=== PATIENT | female | born 1965 | race Caucasian/White ===

== ENCOUNTER → 2016-10-21 | Outpatient (CLI) | payer BC, OTHER ==
[~2016-10-21] MED LIST: ASPI81TA28 PO; CHOL100027 PO; CLON0.5T3 PO; DIVA500T3 PO; DLN100 PO; DLN50 PO; ESCI1TAB10 PO; FURO-85 PO; INSDGI SC; LEVO200T PO; LEVO25TA PO; LISI10TA PO; NVLGI/PEN SQ; SIMV10TA2 PO
[2016-10-22 06:40] LABS: ESTIMATED AVERAGE GLUCOSE 237 mg/dl; HA1C FLAG Normal (Normal)
== END | disposition home or self-care (01) ==
LOC: C.LAB1850 13:30
PROVIDERS: ATTEND Nurse Practitioner Family
DX: E10.29 Type 1 diabetes mellitus with other diabetic kidney complication (principal)

== ENCOUNTER → 2017-02-10 | Outpatient (CLI) | payer BC, OTHER ==
[~2017-02-10] MED LIST changes: +CPR500 PO; +FLM4 PO; +INSU1INJ33 SC; +LAMO1TAB21 PO; +LIRA18IN INJ; +OXYC-57 PO; +PHEN-1043 PO
[2017-02-10 17:50] LABS: THYROID STIMULATING HORMONE 1.31 uIu/ml (0.300-4.500)
[2017-02-11 06:42] LABS: ESTIMATED AVERAGE GLUCOSE 214 mg/dl; HA1C FLAG Normal (Normal)
== END | disposition home or self-care (01) ==
LOC: C.LAB1850 15:17
PROVIDERS: ATTEND Nurse Practitioner Family
DX: E03.9 Hypothyroidism, unspecified (principal); E10.29 Type 1 diabetes mellitus with other diabetic kidney complication

== ENCOUNTER 2017-06-13 05:24 | Inpatient (IN) | payer BC, OTHER ==
[~2017-06-13] VITALS: Ht 160 cm; Wt 97.3 kg
[~2017-06-13 05:24] MED LIST changes: -CPR500 PO; -FLM4 PO; -INSU1INJ33 SC; -LAMO1TAB21 PO; -LIRA18IN INJ; -OXYC-57 PO; -PHEN-1043 PO
[2017-06-13] MEDS ORDERED: SODIUM CHLORIDE 0.9% 1000ML 1,000 ML IV STA ×2 (05:43→07:39)
[2017-06-13] MEDS ORDERED: ONDANSETRON INJ 2 MG/ML 2 ML VIAL IV STA (05:43)
[2017-06-13] MEDS ORDERED: KETOROLAC TROMETHAMINE 30 MG/ML VIAL IV STA (05:43)
[2017-06-13] MEDS ORDERED: MoRPHine SULFATE 10 MG/ML CARP/VIAL IV STA (05:43)
[2017-06-13] MEDS ORDERED: LAMO1TAB21 PO (05:45)
[2017-06-13] MEDS ORDERED: INSU1INJ33 SC (05:45)
[2017-06-13] MEDS ORDERED: LIRA18IN INJ (05:45)
--- NOTE | 2017-06-13 06:03 | EMERGENCY ROOM VISIT NOTE ---
History Report prepared by Nano: Dusty Walls Under the Supervision of: Dr. Kala Langley D.O. First contact with patient: 05:33 Chief Complaint: KIDNEY STONE Stated Complaint: KIDNEY STONE History of Present Illness The patient is a 51 year old female who presents to the Emergency Room with complaints of constant right groin pain and right flank pain that started yesterday. She rates her discomfort as a 9/10 in severity. The patient states that the pain radiates into her back. She states that following her pain, she went to urinate and noticed blood in her urine. The patient also reports that she has been mildly nauseous. She states that due to the pain, she has not been sleeping well. The patient states that she has a history of a hysterectomy. She denies a history of kidney stones, taking blood thinners, leg cramping or swelling, and vomiting. Source of History: patient Onset: yesterday Position: other (right groin) Symptom Intensity: 9/10 Timing: constant Associated Symptoms: + nausea, + back pain, + urinary symptoms, No vomiting Review of Systems See HPI for pertinent positives & negatives. A total of 10 systems reviewed and were otherwise negative. Past Medical & Surgical Medical Problems: (1) Chronic rhinitis (2) Diabetes (3) HTN (hypertension) (4) Hypothyroid (5) Pyelitis (6) Seizure disorder Surgical Problems: (1) Hx of hysterectomy, total Family History Cancer Diabetes mellitus Seizures Social History Smoking Status: Never Smoker Smokeless Tobacco Use: No Alcohol Use: none Drug Use: none Marital Status: Housing Status: lives with significant other Occupation Status: employed Current/Historical Medications Scheduled Aspirin (Aspirin Ec), 81 MG PO Q2D Cholecalciferol (Vitamin D 1000 Unit), 1,000 INTER.UNIT PO DAILY Clonazepam (Klonopin), 0.5 MG PO TID Escitalopram Oxalate (Lexapro), 20 MG PO DAILY Furosemide (Lasix), 20 MG PO DAILY Insulin Degludec (Tresiba Flextouch), 32 UNITS SC QAM Lamotrigine (Lamotrigine), 100 MG PO BID Levothyroxine Sodium (Synthroid), 200 MCG PO DAILY Liraglutide (Victoza), 1.2 ML INJ DAILY Lisinopril (Prinivil), 10 MG PO DAILY Phenytoin (Dilantin Infatabs), 50 MG PO HS Phenytoin Sodium (Dilantin), 200 MG PO BID Simvastatin (Zocor), 10 MG PO QPM Scheduled PRN Insulin Aspart (Novolog Flexpen), 45 UNITS SQ DAILY PRN for SLIDING SCALE Allergies Coded Allergies: No Known Allergies (Unverified , 06/13/17) Physical Exam Vital Signs Date Time Temp Pulse Resp B/P (MAP) Pulse Ox O2 Delivery O2 Flow Rate FiO2 06/13/17 07:27 74 18 121/65 99 Room Air 06/13/17 05:26 36.7 85 18 133/84 97 Room Air Physical Exam General: Appears uncomfortable. HEENT: Head - normocephalic and atraumatic Pupils are equal, round, and reactive to light. Extraocular eye muscles are intact, and sclera are anicteric. Nose - moist nasal mucosa without discharge. Mouth - moist buccal mucosa. Oropharynx is nonerythematous and there is no tonsillar exudate or edema noted. Neck: Supple; no JVD, nuchal rigidity, cervical lymphadenopathy. Heart: Regular rate and rhythm. There is a normal S1 and S2 with no murmurs, clicks, or gallops appreciated. Lungs: Clear to auscultation bilaterally with no wheezes, rales, or rhonchi. Abdomen: Soft, right CVA tenderness, nondistended, with good bowel sounds. There are no palpable pulsatile masses or hepatosplenomegaly. There is no guarding, rigidity, or rebound noted. Extremities: No evidence of cyanosis, clubbing, or edema. There are easily palpable peripheral pulses. Skin: warm and dry with good turgor and no rashes. Medical Decision & Procedures ER Provider Diagnostic Interpretation: CT results as stated below per my review and radiologist interpretation: CT OF THE ABDOMEN AND PELVIS WITHOUT CONTRAST, STONE PROTOCOL CLINICAL HISTORY: Evaluate for left-sided kidney stone. COMPARISON STUDY: None. TECHNIQUE: Helical axial images of the abdomen and pelvis were obtained without IV or oral contrast according to renal stone protocol. A dose lowering technique was utilized adhering to the principles of ALARA. FINDINGS: Visualized portions of the lower chest demonstrate dense right pleural calcification and scarring. These findings are chronic. Unenhanced images of liver, spleen, adrenal glands and pancreas are normal. There is no biliary or pancreatic ductal dilatation. There is marked right renal atrophy with hypertrophy of the left kidney. There is mild right collecting system dilatation. There is mild right ureteral dilatation with ureteral wall thickening and mild periureteral infiltration. There is no left hydronephrosis. However, there is moderate to marked dilatation of the mid to distal left ureter. There are no renal, ureteral or bladder calculi. Moderate bladder wall thickening is noted. There is no evidence for a bowel obstruction. IMPRESSION: 1. No urinary calculi. 2. Marked right renal atrophy with compensatory hypertrophy of the left kidney. Mild right ureteral dilatation, wall thickening and periureteral infiltration. The findings favor an infectious process such as pyelitis, possibly on the basis of reflux. However, a neoplastic process with urothelial lesion could appear similar. Findings could be correlated with urinalysis and urine cytology. Nonspecific moderate bladder wall thickening. Urology consultation might be considered. 3. No left hydronephrosis. Marked dilatation of the distal left ureter which is age-indeterminate. The etiology for the dilatation is unclear on this exam. Differential considerations include a distal left ureteral stricture, urothelial lesion or reflux. Electronically signed by: Rufino Quiles M.D. 06/13/2017 7:19 AM Dictated Date/Time: 06/13/2017 7:01 AM Laboratory Results 06/13/17 05:55 Red Blood Count 4.47, Mean Corpuscular Volume 87.9, Mean Corpuscular Hemoglobin 29.8, Mean Corpuscular Hemoglobin Concent 33.8, Mean Platelet Volume 9.7, Neutrophils (%) (Auto) 84.0, Lymphocytes (%) (Auto) 10.0, Monocytes (%) (Auto) 5.3, Eosinophils (%) (Auto) 0.4, Basophils (%) (Auto) 0.2, Neutrophils # (Auto) 8.03, Lymphocytes # (Auto) 0.96, Monocytes # (Auto) 0.51, Eosinophils # (Auto) 0.04, Basophils # (Auto) 0.02 06/13/17 05:55 Test 06/13/17 05:55 06/13/17 06:00 White Blood Count 9.57 K/uL (4.8-10.8) Red Blood Count 4.47 M/uL (4.2-5.4) Hemoglobin 13.3 g/dL (12.0-16.0) Hematocrit 39.3 % (37-47) Mean Corpuscular Volume 87.9 fL (80-100) Mean Corpuscular Hemoglobin 29.8 pg (25-34) Mean Corpuscular Hemoglobin Concent 33.8 g/dl (32-36) Platelet Count 202 K/uL (130-400) Mean Platelet Volume 9.7 fL (7.4-10.4) Neutrophils (%) (Auto) 84.0 % Lymphocytes (%) (Auto) 10.0 % Monocytes (%) (Auto) 5.3 % Eosinophils (%) (Auto) 0.4 % Basophils (%) (Auto) 0.2 % Neutrophils # (Auto) 8.03 K/uL (1.4-6.5) Lymphocytes # (Auto) 0.96 K/uL (1.2-3.4) Monocytes # (Auto) 0.51 K/uL (0.11-0.59) Eosinophils # (Auto) 0.04 K/uL (0-0.5) Basophils # (Auto) 0.02 K/uL (0-0.2) RDW Standard Deviation 40.7 fL (36.4-46.3) RDW Coefficient of Variation 12.6 % (11.5-14.5) Immature Granulocyte % (Auto) 0.1 % Immature Granulocyte # (Auto) 0.01 K/uL (0.00-0.02) Anion Gap 6.0 mmol/L (3-11) Est Creatinine Clear Calc Drug Dose 111.5 ml/min Estimated GFR () 119.6 Estimated GFR (Non- 103.2 BUN/Creatinine Ratio 14.1 (10-20) Calcium Level 8.5 mg/dl (8.5-10.1) Urine Color RED Urine Appearance TURBID (CLEAR) Urine pH 6.5 (4.5-7.5) Urine Specific [place] 1.020 (1.000-1.030) Urine Protein 3+ (NEG) Urine Glucose (UA) NEG (NEG) Urine Ketones NEG (NEG) Urine Occult Blood 3+ (NEG) Urine Nitrite NEG (NEG) Urine Bilirubin NEG (NEG) Urine Urobilinogen NEG (NEG) Urine Leukocyte Esterase SMALL (NEG) Urine RBC >30 /hpf (0-4) Urine WBC 10-30 /hpf (0-5) Urine Epithelial Cells 5-10 /lpf (0-5) Urine Bacteria NEG (NEG) Laboratory results per my review. Medications Administered Medications (Trade) Dose Ordered Sig/Peggy Route Start Time Stop Time Status Last Admin Dose Admin Sodium Chloride 1,000 ml @ 999 mls/hr Q1H1M STAT IV 06/13/17 05:43 06/13/17 06:43 DC 06/13/17 06:07 999 MLS/HR Ketorolac Tromethamine (Toradol Inj) 30 mg NOW STAT IV 06/13/17 05:43 06/13/17 05:46 DC 06/13/17 06:06 30 MG Ondansetron HCl (Zofran Inj) 4 mg NOW STAT IV 06/13/17 05:43 06/13/17 05:46 DC 06/13/17 06:06 4 MG Morphine Sulfate (MoRPHine SULFATE INJ) 6 mg NOW STAT IV 06/13/17 05:43 06/13/17 05:45 DC 06/13/17 06:07 6 MG Sodium Chloride 1,000 ml @ 125 mls/hr Q8H STAT IV 06/13/17 07:39 06/13/17 10:59 DC 06/13/17 08:03 125 MLS/HR Morphine Sulfate (MoRPHine SULFATE INJ) 4 mg NOW STAT IV 06/13/17 07:39 06/13/17 07:40 DC 06/13/17 08:03 4 MG Ceftriaxone Sodium (Rocephin Inj) 1 gm NOW STAT IV 06/13/17 07:42 06/13/17 07:44 DC 06/13/17 08:02 1 GM Procedure Medications administered include: Morphine Sulfate 6 mg IV, Zofran Injection 4 mg IV, Toradol Injection 30 mg IV, Sodium Chloride 1000 ml @ 999 mls/hr IV. ED Course 0540: The patient was evaluated in room A10. A complete history and physical examination were performed. Nursing notes and previous electronic medical records were reviewed. IV lock was established and labs were drawn as above. 0543: Ordered Morphine Sulfate 6 mg IV, Zofran Injection 4 mg IV, Toradol Injection 30 mg IV, Sodium Chloride 1000 ml @ 999 mls/hr IV. The patient went for CT scan of the abdomen/pelvis. 0710: I reevaluated the patient and she is resting comfortably. She felt as though her blood sugar was going down and her lab BSG showed a value of 66. I gave her tamiko crackers and juice. 0731: I reevaluated the patient and she is in pain, which she rates as a 7/10. I discussed her results and treatment plan with her. She agrees to the plan. The patient will be further evaluated. She was given a second dose of IV morphine. 0740: I discussed the patient's case with Sanjuana Acharya. He understands the patient's condition and agrees to accept the patient. The patient will be further evaluated. Medical Decision The patient is a 51 year old female who presents to the ED with constant right groin pain that started yesterday. Differential diagnosis includes pyelonephritis, obstructive uropathy, uretal calculi, diverticulitis. Lab results show: Normal white count stable H&H, normal renal function, glucose 66, urine 3+ blood, 3+ protein, >30 rbc, 10 WBC. This is a 51-year-old female patient who presents to the emergency department with significant right sided flank pain and hematuria. CT scan showed no evidence of a ureteral calculi but did show evidence of ureteral inflammation and possible pyelitis. The urinalysis showed significant hematuria. It was sent for culture. The patient was started on IV antibiotics. I felt she would require further inpatient care secondary to her intractable right flank pain. I discussed the case with Dr. Wynn from urology as the patient had requested [facility] urology. She claimed that she was not on-call and that we would need to consult with [facility]. [facility]. Medication Reconcilliation Current Medication List: was personally reviewed by me Blood Pressure Screening Patient's blood pressure: Normal blood pressure Consults Time Called: 739 Consulting Physician: Sanjuana Acharya Returned Call: 0740 I discussed the patient's case with Sanjuana Acharya. He understands the patient's condition and agrees to accept the patient. The patient will be further evaluated. Impression Primary Impression: Right flank pain Additional Impression: Hematuria Scribe Attestation The scribe's documentation has been prepared under my direction and personally reviewed by me in its entirety. I confirm that the note above accurately reflects all work, treatment, procedures, and medical decision making performed by me. Departure Information Referrals Brendan Trejo M.D. (MEDICAL) (PCP) Patient Instructions [facility] Problem Qualifiers Additional Impression: Hematuria Hematuria type: unspecified type Qualified Codes: R31.9 - Hematuria, unspecified
[2017-06-13 06:11] LABS: BASO % 0.2 %; BASO ABS # 0.02 K/uL (0-0.2); COMPLETE YES; EOS % 0.4 %; HEMATOCRIT 39.3 % (37-47); IG% 0.1 %; LYMPH ABS # 0.96 K/uL (1.2-3.4); MEAN CELL VOLUME 87.9 fL (80-100); MEAN CORPUSCULAR HEMOGLOBIN 29.8 pg (25-34); MEAN CORPUSCULAR HGB CONC 33.8 g/dl (32-36); MEAN PLATELET VOLUME 9.7 fL (7.4-10.4); MONO % 5.3 %; PLATELET COUNT 202 K/uL (130-400); RED BLOOD COUNT 4.47 M/uL (4.2-5.4); WHITE BLOOD COUNT 9.57 K/uL (4.8-10.8)
[2017-06-13 06:14] LABS: MANUAL MICROSCOPIC REQUIRED? YES; REVIEW REQ? NO; URINE APPEARANCE TURBID (CLEAR); URINE BILIRUBIN NEG (NEG); URINE COLOR RED; URINE NITRITE NEG (NEG); URINE PH 6.5 (4.5-7.5); UROBILINOGEN NEG (NEG)
[2017-06-13 06:18] LABS: URINE RBC >30 /hpf (0-4)
[2017-06-13 06:20] LABS: URINE BACTERIA NEG (NEG)
[2017-06-13 06:30] LABS: BUN/CREATININE RATIO 14.1 (10-20); CALCIUM 8.5 mg/dl (8.5-10.1); CREATININE 0.67 mg/dl (0.60-1.20)
--- NOTE | 2017-06-13 07:20 | DIAGNOSTIC IMAGING REPORT ---
CT OF THE ABDOMEN AND PELVIS WITHOUT CONTRAST, STONE PROTOCOL CLINICAL HISTORY: Evaluate for left-sided kidney stone. COMPARISON STUDY: None. TECHNIQUE: Helical axial images of the abdomen and pelvis were obtained without IV or oral contrast according to renal stone protocol. A dose lowering technique was utilized adhering to the principles of ALARA. FINDINGS: Visualized portions of the lower chest demonstrate dense right pleural calcification and scarring. These findings are chronic. Unenhanced images of liver, spleen, adrenal glands and pancreas are normal. There is no biliary or pancreatic ductal dilatation. There is marked right renal atrophy with hypertrophy of the left kidney. There is mild right collecting system dilatation. There is mild right ureteral dilatation with ureteral wall thickening and mild periureteral infiltration. There is no left hydronephrosis. However, there is moderate to marked dilatation of the mid to distal left ureter. There are no renal, ureteral or bladder calculi. Moderate bladder wall thickening is noted. There is no evidence for a bowel obstruction. IMPRESSION: 1. No urinary calculi. 2. Marked right renal atrophy with compensatory hypertrophy of the left kidney. Mild right ureteral dilatation, wall thickening and periureteral infiltration. The findings favor an infectious process such as pyelitis, possibly on the basis of reflux. However, a neoplastic process with urothelial lesion could appear similar. Findings could be correlated with urinalysis and urine cytology. Nonspecific moderate bladder wall thickening. Urology consultation might be considered. 3. No left hydronephrosis. Marked dilatation of the distal left ureter which is age-indeterminate. The etiology for the dilatation is unclear on this exam. Differential considerations include a distal left ureteral stricture, urothelial lesion or reflux. Electronically signed by: Rufino Quiles M.D. 06/13/2017 7:19 AM Dictated Date/Time: 06/13/2017 7:01 AM
[2017-06-13] MEDS ORDERED: MoRPHine SULFATE 4 MG/ML 1 ML CARP\\VIAL IV STA (07:39)
[2017-06-13] MEDS ORDERED: CEFTRIAXONE SOD INJ 1 GM ADDVIAL IV STA (07:42)
[2017-06-13] MEDS ORDERED: ONDANSETRON INJ 2 MG/ML 2 ML VIAL IV PRN (08:45)
[2017-06-13] MEDS ORDERED: POLYETHYLENE (MIRALAX) 17 GM PACK PO PRN (08:45)
[2017-06-13] MEDS ORDERED: MoRPHine SULFATE 4 MG/ML 1 ML CARP\\VIAL IV PRN (08:45)
[2017-06-13 10:10] VITALS: BP 106/70; PULSE 69; TEMP 36.9; O2SAT 97; BMI 38.0
--- NOTE | 2017-06-13 10:16 | History and Physical ---
History & Physical Date & Time of Service: Jun 13, 2017 at 09:56 Chief Complaint: Kidney Stone Primary Care Physician: Brendan Trejo M.D. (MEDICAL) History of Present Illness Source: patient, family Patient is a 51 yo female who presents to the hospital for complaints of right sided flank pain and right abdominal and groin pain that initially started as a dull back ache about 2-3 days ago. She states yesterday it progressed to having pain in her abdomen and groin as well as noticing blood on the tissue when she wiped after urination. She also states she felt some resistance to urinating and dysuria yesterday. She has noticed some relief in the dysuria and urinary hesitancy today however since being in the ER and receiving analgesia. She denies any complaints of fever, chills, sweats, rigors. She denies any recent illness or antibiotic use. She denies any recent trauma or falls. No cough, CP, SOB, palpitations, N/V/D. She denies any prior history of similar symptoms. Her states a few days ago he was concerned that when he came home from work the patient was confused and had low blood glucose, but it was difficult to reverse and he was concerned because of her history seizures and also the possibility of infection as she has had similar symptoms in the distant past. Past Medical/Surgical History PMHx: DM Endometriosis Epileptic seizure HTN Hypothyroidism since age 14 Osteoarthrosis Surgical Hx: Total hysterectomy Family History Cancer Diabetes mellitus Seizures Social History Smoking Status: Former Smoker (Quit in October 2016; smoked 1.5 ppd prior to that) Smokeless Tobacco Use: No Alcohol Use: occasionally Drug Use: none Marital Status: Housing status: lives with family Occupational Status: employed Multi-Drug Resistant Organisms History of MDRO: No Allergies Coded Allergies: No Known Allergies (Unverified , 06/13/17) Home Medications Scheduled Aspirin (Aspirin Ec), 81 MG PO Q2D Cholecalciferol (Vitamin D 1000 Unit), 1,000 INTER.UNIT PO DAILY Clonazepam (Klonopin), 0.5 MG PO TID Escitalopram Oxalate (Lexapro), 20 MG PO DAILY Furosemide (Lasix), 20 MG PO DAILY Insulin Degludec (Tresiba Flextouch), 32 UNITS SC QAM Lamotrigine (Lamotrigine), 100 MG PO BID Levothyroxine Sodium (Synthroid), 200 MCG PO DAILY Liraglutide (Victoza), 1.2 ML INJ DAILY Lisinopril (Prinivil), 10 MG PO DAILY Phenytoin (Dilantin Infatabs), 50 MG PO HS Phenytoin Sodium (Dilantin), 200 MG PO BID Simvastatin (Zocor), 10 MG PO QPM Scheduled PRN Insulin Aspart (Novolog Flexpen), 45 UNITS SQ DAILY PRN for SLIDING SCALE Review of Systems A full 10 systems were reviewed; please see the HPI for the pertinent positives and negatives. Physical Exam Vital Signs Date Time Temp Pulse Resp B/P (MAP) Pulse Ox O2 Delivery O2 Flow Rate FiO2 06/13/17 09:37 73 18 135/72 97 06/13/17 07:27 74 18 121/65 99 Room Air 06/13/17 05:26 36.7 85 18 133/84 97 Room Air General Appearance: WD/WN, + mild distress Head: normocephalic, atraumatic Eyes: PERRL, EOMI, sclerae normal, + pertinent finding (conjunctivae clear) ENT: hearing grossly normal, pharynx normal Neck: supple, no adenopathy, thyroid normal, no JVD, no carotid bruits, trachea midline Respiratory/Chest: chest non-tender, lungs clear, normal breath sounds, no respiratory distress Cardiovascular: regular rate, rhythm, no edema, no gallop, no JVD, no murmur Abdomen/GI: normal bowel sounds, non tender, soft, no organomegaly (no hepatosplenomegaly), + tenderness (Right sided ) Back: no muscle spasm, + right CVA tenderness Extremities/Musculoskelatal: no calf tenderness, normal capillary refill, no pedal edema Neurologic/Psych: no motor/sensory deficits, alert, normal mood/affect, oriented x 3 Skin: normal color, warm/dry, no rash Diagnostics Laboratory Results Results Past 24 Hours Test 06/13/17 05:55 06/13/17 06:00 Range/Units White Blood Count 9.57 4.8-10.8 K/uL Red Blood Count 4.47 4.2-5.4 M/uL Hemoglobin 13.3 12.0-16.0 g/dL Hematocrit 39.3 37-47 % Mean Corpuscular Volume 87.9 80-100 fL Mean Corpuscular Hemoglobin 29.8 25-34 pg Mean Corpuscular Hemoglobin Concent 33.8 32-36 g/dl Platelet Count 202 130-400 K/uL Mean Platelet Volume 9.7 7.4-10.4 fL Neutrophils (%) (Auto) 84.0 % Lymphocytes (%) (Auto) 10.0 % Monocytes (%) (Auto) 5.3 % Eosinophils (%) (Auto) 0.4 % Basophils (%) (Auto) 0.2 % Neutrophils # (Auto) 8.03 1.4-6.5 K/uL Lymphocytes # (Auto) 0.96 1.2-3.4 K/uL Monocytes # (Auto) 0.51 0.11-0.59 K/uL Eosinophils # (Auto) 0.04 0-0.5 K/uL Basophils # (Auto) 0.02 0-0.2 K/uL RDW Standard Deviation 40.7 36.4-46.3 fL RDW Coefficient of Variation 12.6 11.5-14.5 % Immature Granulocyte % (Auto) 0.1 % Immature Granulocyte # (Auto) 0.01 0.00-0.02 K/uL Sodium Level 141 136-145 mmol/L Potassium Level 4.0 3.5-5.1 mmol/L Chloride Level 106 98-107 mmol/L Carbon Dioxide Level 29 21-32 mmol/L Anion Gap 6.0 3-11 mmol/L Blood Urea Nitrogen 9 7-18 mg/dl Creatinine 0.67 0.60-1.20 mg/dl Est Creatinine Clear Calc Drug Dose 111.5 ml/min Estimated GFR () 119.6 Estimated GFR (Non- 103.2 BUN/Creatinine Ratio 14.1 10-20 Random Glucose 66 70-99 mg/dl Calcium Level 8.5 8.5-10.1 mg/dl Urine Color RED Urine Appearance TURBID CLEAR Urine pH 6.5 4.5-7.5 Urine Specific [place] 1.020 1.000-1.030 Urine Protein 3+ NEG Urine Glucose (UA) NEG NEG Urine Ketones NEG NEG Urine Occult Blood 3+ NEG Urine Nitrite NEG NEG Urine Bilirubin NEG NEG Urine Urobilinogen NEG NEG Urine Leukocyte Esterase SMALL NEG Urine RBC >30 0-4 /hpf Urine WBC 10-30 0-5 /hpf Urine Epithelial Cells 5-10 0-5 /lpf Urine Bacteria NEG NEG Impression Assessment and Plan HEMATURIA/FLANK PAIN: -CT Abd/pelvis does not show a stone but question if patient may have passed a stone -CT findings: "2. Marked right renal atrophy with compensatory hypertrophy of the left kidney. Mild right ureteral dilatation, wall thickening and periureteral infiltration. The findings favor an infectious process such as pyelitis, possibly on the basis of reflux. However, a neoplastic process with urothelial lesion could appear similar. Findings could be correlated with urinalysis and urine cytology. Nonspecific moderate bladder wall thickening. Urology consultation might be considered. 3. No left hydronephrosis. Marked dilatation of the distal left ureter which is age-indeterminate. The etiology for the dilatation is unclear on this exam. Differential considerations include a distal left ureteral stricture, urothelial lesion or reflux." -Consult to Urology search optimization analyst placed -started on empiric abx in ER, continue with ceftriaxone daily -obtain urine culture -hydrate with IV fluids -pain control PRN -will keep NPO for now DIABETES: -HbA1c from 1 month ago was 7.4% -patient follows with Endocrine as outpatient -will consult Glycemic pharmacy for their assistance in restarting insulin and will need to be adjusted when patient is taking in PO SEIZURE DISORDER: -continue on home meds -has been well controlled with no recent seizures -follows with [facility] Neurology HTN: -stable -continue home meds HYPOTHYROIDISM: -continue synthroid Level of Care Med/Surg VTE Prophylaxis VTE Risk Assessment Done? Y/N: Yes Risk Level: Moderate
[2017-06-13] MEDS ORDERED: PHARMACY GLYCEMIC MGMT CONSULT SCH (10:20)
[2017-06-13] MEDS ORDERED: GLUCOSE 40% GEL 15 GM TUBE PO PRN (10:30)
[2017-06-13] MEDS ORDERED: GLUCOSE 10 TABS/TUBE PO PRN (10:30)
[2017-06-13] MEDS ORDERED: GLUCAGON FOR INJ 1 MG VIAL SQ PRN (10:30)
[2017-06-13] MEDS ORDERED: IV FLUIDS COMPLETED PRN (11:00)
[2017-06-13] MEDS: SODIUM CHLORIDE 0.9% 1000ML 1,000 ML IV SCH ×2 (11:41→21:14)
[2017-06-13] MEDS: CLONAZEPAM 0.5 MG TAB PO SCH ×3 (11:42→21:16)
[2017-06-13] MEDS: LEVOTHYROXINE 200 MCG TAB PO SCH (11:42)
[2017-06-13] MEDS: ESCITALOPRAM OXALATE 20 MG TAB PO SCH (11:42)
[2017-06-13] MEDS: PHENYTOIN SODIUM ER 100 MG CAP PO SCH ×2 (11:42→21:15)
[2017-06-13] MEDS: LISINOPRIL 10 MG TAB PO SCH (11:42)
--- NOTE | 2017-06-13 11:45 | Pharmacy Progress Note ---
Glycemic Control Intl Consult Date of Service Jun 13, 2017. Scope Glycemic Pharmacist consulted by Dr Gibson on 06/13/17 for glycemic control and to write orders per [facility] inpatient glycemic control protocol Objective Weight (Kilograms): 97.300 Accuchecks BSG (last 24hrs): Test 06/13/17 05:55 06/13/17 10:08 Random Glucose 66 mg/dl (70-99) Bedside Glucose 168 mg/dl (70-90) Laboratory Data (last 24hrs) Test 06/13/17 05:55 Anion Gap 6.0 mmol/L BUN/Creatinine Ratio 14.1 Blood Urea Nitrogen 9 mg/dl Creatinine 0.67 mg/dl Potassium Level 4.0 mmol/L Sodium Level 141 mmol/L White Blood Count 9.57 K/uL Red Blood Count 4.47 M/uL Hemoglobin 13.3 g/dL Hematocrit 39.3 % Mean Corpuscular Volume 87.9 fL Mean Corpuscular Hemoglobin 29.8 pg Mean Corpuscular Hemoglobin Concent 33.8 g/dl Platelet Count 202 K/uL Mean Platelet Volume 9.7 fL Neutrophils (%) (Auto) 84.0 % Lymphocytes (%) (Auto) 10.0 % Monocytes (%) (Auto) 5.3 % Eosinophils (%) (Auto) 0.4 % Basophils (%) (Auto) 0.2 % Neutrophils # (Auto) 8.03 K/uL Lymphocytes # (Auto) 0.96 K/uL Monocytes # (Auto) 0.51 K/uL Eosinophils # (Auto) 0.04 K/uL Basophils # (Auto) 0.02 K/uL HbA1c Item Value Date Time Hemoglobin A1c 9.1 % H 02/10/17 1525 Hemoglobin A1c 7.4% 05/16/17 Recent Pertinent Medications Outpatient Anti-diabetic Regimen: * Tresiba 30-34 units SQ daily in AM * NovoLog bolus insulin, 6-7 units with meals (per carb ratio of 1:10) + SSI when BSG > 150 * Victoza 1.8mg SQ daily Risk Factors for Insulin Resistance: * Infection Assessment & Plan ASSESSMENT: * 51yo Type 1 diabetic female with adequate outpatient control per recent A1c. A1c has decreased from 9.1% in January 2017 to 7.4% in May 2017. Pt has had a reported 15 lb weight loss. A1c improved with the addition of Victoza in January and possibly from the switch of Lantus to Tresiba. No changes needed to outpatient regimen. Patient follows with [facility] Endocrinology and is very happy with her care there. * Pt admitted with possible UTI - NPO at this time until urology evaluates. * Pt with low BSG in ER of 66mg/dl secondary to decreased PO intake * Concern for rebound hyperglycemia vs DKA in holding basal insulin in a type one diabetic. Discussed regimen in great detail with patient - pt ok with using Lantus for short term inpatient use. OK to hold Victoza for admission - pt is experiencing nausea and GLP1's can cause significant nausea. PLAN FOR INPATIENT GLYCEMIC CONTROL: Continue SQ basal bolus insulin regimen, sub Lantus for Tresiba, use reduced outpatient dosing for NPO status and titrate doses based on BSG trends. * Basal insulin * Lantus 20 units SQ daily in AM - OK to give while NPO * Bolus insulin * NovoLog per scale ACHS or Q6hrs while NPO * Goal Range: Low 110 mg/dL - High 140 mg/dL * Correction Factor: 25 mg/dL/unit * Nutritional / Prandial insulin per carb ratio of 1 unit per 8 grams CHO consumed * Please note that the plan above was derived based on current level of insulin resistance and hospital stress. These recommendations are appropriate for inpatient admission only. Plan of care upon discharge will need to be reassessed to avoid potential outpatient hypo/hyperglycemia. Thank you.
[2017-06-13] MEDS: INSULIN GLARGINE SOLOSTAR 100 UNITS/ML 3 ML PEN SC SCH (11:49)
[2017-06-13] MEDS ORDERED: INSULIN ASPART 100 UNITS/ML 3 ML PEN SC SCH ×2 (12:00)
[2017-06-13] MEDS ORDERED: NURSING VERBAL MED ORDER ONE ×2 (12:00→15:30)
[2017-06-13] MEDS ORDERED: INFLUENZA ADMINISTRATION CHARGE ONE (12:30)
[2017-06-13] MEDS ORDERED: INFLUENZA VIRUS QUAD VACCINE 0.5 ML SYR IM. ONE (12:30)
[2017-06-13 15:05] VITALS: BP 112/76; PULSE 69; TEMP 37; O2SAT 98
--- NOTE | 2017-06-13 17:13 | Urology Consultation ---
History General Date of Service: Jun 13, 2017. Primary Care Physician: Brendan Trejo M.D. (MEDICAL) Pt seen a urologist before?: No History of Present Illness Patient is a 51-year-old white female admitted through the emergency room with an episode of gross hematuria and pain in the right groin area. This started today. She's never had blood in the urine before that she is aware of. She does have some dysuria and pressure in the bladder area. Currently she says the pain has subsided for the most part in her urine has cleared up. He has no history of nephrolithiasis Laboratory Current Inpatient Medications Medications (Trade) Dose Ordered Sig/Peggy Route Start Time Stop Time Status Last Admin Dose Admin Acetaminophen (Tylenol Tab) 650 mg Q4H PRN PO 06/13/17 08:45 07/13/17 08:44 Polyethylene (Miralax Powder Packet) 17 gm DAILY PRN PO 06/13/17 08:45 07/13/17 08:44 Ondansetron HCl (Zofran Inj) 4 mg Q6H PRN IV 06/13/17 08:45 07/13/17 08:44 Ketorolac Tromethamine (Toradol Inj) 30 mg Q6H PRN IV 06/13/17 08:45 06/18/17 08:44 Morphine Sulfate (MoRPHine SULFATE INJ) 4 mg Q3HWA PRN IV 06/13/17 08:45 06/27/17 08:44 Glucose (Glucose 40% Gel) 15-30 GRAMS 15 GRAMS... UD PRN PO 06/13/17 10:30 07/13/17 10:29 Glucose (Glucose Chew Tab) 4-8 Tablets 4 Tabl... UD PRN PO 06/13/17 10:30 07/13/17 10:29 Dextrose (Dextrose 50% 50ML Syringe) 25-50ML OF 50% DW IV FOR... UD PRN IV 06/13/17 10:30 07/13/17 10:29 Glucagon (Glucagon Inj) 1 mg UD PRN SQ 06/13/17 10:30 07/13/17 10:29 Miscellaneous Information (Consult Glycemic Management Pharmacy) 1 ea UD N/A 06/13/17 10:20 07/13/17 10:19 Sodium Chloride 1,000 ml @ 100 mls/hr Q10H IV 06/13/17 10:30 07/13/17 10:29 06/13/17 11:41 100 MLS/HR Ceftriaxone Sodium 1 gm/ Dextrose 50 ml @ 100 mls/hr Q24H IV 06/14/17 08:00 06/23/17 07:59 Clonazepam (Klonopin Tab) 0.5 mg TID PO 06/13/17 11:15 07/13/17 11:14 06/13/17 11:42 0.5 MG Escitalopram Oxalate (Lexapro Tab) 20 mg DAILY PO 06/13/17 11:30 07/13/17 11:29 06/13/17 11:42 20 MG Lamotrigine (Lamictal Tab) 100 mg BID PO 06/13/17 11:30 07/13/17 11:29 06/13/17 12:38 100 MG Levothyroxine Sodium (Synthroid Tab) 200 mcg DAILYBB PO 06/13/17 11:30 07/13/17 11:29 06/13/17 11:42 200 MCG Lisinopril (Zestril Tab) 10 mg DAILY PO 06/13/17 11:30 07/13/17 11:29 06/13/17 11:42 10 MG Phenytoin (Dilantin Chew) 50 mg HS PO 06/13/17 21:00 07/13/17 20:59 Phenytoin Sodium (Dilantin Er Cap) 200 mg BID PO 06/13/17 11:30 07/13/17 11:29 06/13/17 11:42 200 MG Simvastatin (Zocor Tab) 10 mg QPM PO 06/13/17 21:00 07/13/17 20:59 Insulin Glargine (Lantus Solostar Pen) 20 units DAILY SC 06/13/17 11:30 07/13/17 11:29 06/13/17 11:49 20 UNITS Miscellaneous (Iv Fluids Completed) 1 ea PRN PRN N/A 06/13/17 11:00 06/13/18 10:59 Insulin Aspart (novoLOG ASPART) SLIDING SCALE TODAY@0200 SC 06/14/17 02:00 06/14/17 02:01 Insulin Aspart (novoLOG ASPART) SLIDING SCALE ACHS SC 06/13/17 17:15 07/13/17 11:59 Current Inpatient Medications Medications (Trade) Dose Ordered Sig/Peggy Route Start Time Stop Time Status Last Admin Dose Admin Acetaminophen (Tylenol Tab) 650 mg Q4H PRN PO 06/13/17 08:45 07/13/17 08:44 Polyethylene (Miralax Powder Packet) 17 gm DAILY PRN PO 06/13/17 08:45 07/13/17 08:44 Ondansetron HCl (Zofran Inj) 4 mg Q6H PRN IV 06/13/17 08:45 07/13/17 08:44 Ketorolac Tromethamine (Toradol Inj) 30 mg Q6H PRN IV 06/13/17 08:45 06/18/17 08:44 Morphine Sulfate (MoRPHine SULFATE INJ) 4 mg Q3HWA PRN IV 06/13/17 08:45 06/27/17 08:44 Glucose (Glucose 40% Gel) 15-30 GRAMS 15 GRAMS... UD PRN PO 06/13/17 10:30 07/13/17 10:29 Glucose (Glucose Chew Tab) 4-8 Tablets 4 Tabl... UD PRN PO 06/13/17 10:30 07/13/17 10:29 Dextrose (Dextrose 50% 50ML Syringe) 25-50ML OF 50% DW IV FOR... UD PRN IV 06/13/17 10:30 07/13/17 10:29 Glucagon (Glucagon Inj) 1 mg UD PRN SQ 06/13/17 10:30 07/13/17 10:29 Miscellaneous Information (Consult Glycemic Management Pharmacy) 1 ea UD N/A 06/13/17 10:20 07/13/17 10:19 Sodium Chloride 1,000 ml @ 100 mls/hr Q10H IV 06/13/17 10:30 07/13/17 10:29 06/13/17 11:41 100 MLS/HR Ceftriaxone Sodium 1 gm/ Dextrose 50 ml @ 100 mls/hr Q24H IV 06/14/17 08:00 06/23/17 07:59 Clonazepam (Klonopin Tab) 0.5 mg TID PO 06/13/17 11:15 07/13/17 11:14 06/13/17 11:42 0.5 MG Escitalopram Oxalate (Lexapro Tab) 20 mg DAILY PO 06/13/17 11:30 07/13/17 11:29 06/13/17 11:42 20 MG Lamotrigine (Lamictal Tab) 100 mg BID PO 06/13/17 11:30 07/13/17 11:29 06/13/17 12:38 100 MG Levothyroxine Sodium (Synthroid Tab) 200 mcg DAILYBB PO 06/13/17 11:30 07/13/17 11:29 06/13/17 11:42 200 MCG Lisinopril (Zestril Tab) 10 mg DAILY PO 06/13/17 11:30 07/13/17 11:29 06/13/17 11:42 10 MG Phenytoin (Dilantin Chew) 50 mg HS PO 06/13/17 21:00 07/13/17 20:59 Phenytoin Sodium (Dilantin Er Cap) 200 mg BID PO 06/13/17 11:30 07/13/17 11:29 06/13/17 11:42 200 MG Simvastatin (Zocor Tab) 10 mg QPM PO 06/13/17 21:00 07/13/17 20:59 Insulin Glargine (Lantus Solostar Pen) 20 units DAILY SC 06/13/17 11:30 07/13/17 11:29 06/13/17 11:49 20 UNITS Miscellaneous (Iv Fluids Completed) 1 ea PRN PRN N/A 06/13/17 11:00 06/13/18 10:59 Insulin Aspart (novoLOG ASPART) SLIDING SCALE TODAY@0200 [place] 06/14/17 02:00 06/14/17 02:01 Insulin Aspart (novoLOG ASPART) SLIDING SCALE ACHS [place] 06/13/17 17:15 07/13/17 11:59 Last 24 Hours Test 06/13/17 05:55 06/13/17 06:00 06/13/17 10:08 06/13/17 12:00 White Blood Count 9.57 K/uL Red Blood Count 4.47 M/uL Hemoglobin 13.3 g/dL Hematocrit 39.3 % Mean Corpuscular Volume 87.9 fL Mean Corpuscular Hemoglobin 29.8 pg Mean Corpuscular Hemoglobin Concent 33.8 g/dl Platelet Count 202 K/uL Mean Platelet Volume 9.7 fL Neutrophils (%) (Auto) 84.0 % Lymphocytes (%) (Auto) 10.0 % Monocytes (%) (Auto) 5.3 % Eosinophils (%) (Auto) 0.4 % Basophils (%) (Auto) 0.2 % Neutrophils # (Auto) 8.03 K/uL Lymphocytes # (Auto) 0.96 K/uL Monocytes # (Auto) 0.51 K/uL Eosinophils # (Auto) 0.04 K/uL Basophils # (Auto) 0.02 K/uL RDW Standard Deviation 40.7 fL RDW Coefficient of Variation 12.6 % Immature Granulocyte % (Auto) 0.1 % Immature Granulocyte # (Auto) 0.01 K/uL Sodium Level 141 mmol/L Potassium Level 4.0 mmol/L Chloride Level 106 mmol/L Carbon Dioxide Level 29 mmol/L Anion Gap 6.0 mmol/L Blood Urea Nitrogen 9 mg/dl Creatinine 0.67 mg/dl Est Creatinine Clear Calc Drug Dose 111.5 ml/min Estimated GFR () 119.6 Estimated GFR (Non- 103.2 BUN/Creatinine Ratio 14.1 Random Glucose 66 mg/dl Calcium Level 8.5 mg/dl Urine Color RED Urine Appearance TURBID Urine pH 6.5 Urine Specific [place] 1.020 Urine Protein 3+ Urine Glucose (UA) NEG Urine Ketones NEG Urine Occult Blood 3+ Urine Nitrite NEG Urine Bilirubin NEG Urine Urobilinogen NEG Urine Leukocyte Esterase SMALL Urine RBC >30 /hpf Urine WBC 10-30 /hpf Urine Epithelial Cells 5-10 /lpf Urine Bacteria NEG Bedside Glucose 168 mg/dl 140 mg/dl Last Vital Signs Documentation Date Time Temp Pulse Resp B/P (MAP) Pulse Ox O2 Delivery O2 Flow Rate FiO2 06/13/17 15:05 37.0 69 16 112/76 (88) 98 Room Air Problem List Medical Problems: (1) Hematuria Status: Acute (2) Right flank pain Status: Acute Family History Cancer Diabetes mellitus Seizures Social History Hx Tobacco Use In Past Year?: No Marital status: Housing status: lives with family Occupation status: employed History of MDRO No Allergies Coded Allergies: No Known Allergies (Unverified , 06/13/17) Medications Home Medications: Home Meds and Scripts Medications Dose Route/Sig Max Daily Dose Days Date Category Dose Instructions Victoza (Liraglutide) 18 Mg/3 Ml Inj 1.2 Ml INJ DAILY 06/13/17 Reported Tresiba Flextouch (Insulin Degludec) 100 Unit/Ml Inj 32 Units SC QAM 06/13/17 Reported Lamotrigine 100 Mg Tab 100 Mg PO BID 30 06/13/17 Reported Vitamin D 1000 Unit (Cholecalciferol) 1,000 Unit Cap 1,000 Inter.unit PO DAILY 04/15/15 Reported Zocor (Simvastatin) 10 Mg Tab 10 Mg PO QPM 04/15/15 Reported Novolog Flexpen (Insulin Aspart) 100 Units/Ml Inj 45 Units SQ DAILY PRN 04/15/15 Reported Prinivil (Lisinopril) 10 Mg Tab 10 Mg PO DAILY 04/15/15 Reported Synthroid (Levothyroxine Sodium) 200 Mcg Tab 200 Mcg PO DAILY 04/15/15 Reported Lasix (Furosemide) 20 Mg Tab 20 Mg PO DAILY 04/15/15 Reported Lexapro (Escitalopram Oxalate) 20 Mg Tab 20 Mg PO DAILY 04/15/15 Reported Dilantin Infatabs (Phenytoin) 50 Mg Chew 50 Mg PO HS 04/15/15 Reported TAKE IN ADDITION TO 200 MG-PM DOSE. Dilantin (Phenytoin Sodium) 100 Mg Cap 200 Mg PO BID 30 04/15/15 Reported Klonopin (Clonazepam) 0.5 Mg Tab 0.5 Mg PO TID 04/15/15 Reported Aspirin Ec (Aspirin) 81 Mg Tab 81 Mg PO Q2D 04/15/15 Reported Inpatient Medications: Current Inpatient Medications Medications (Trade) Dose Ordered Sig/Peggy Route Start Time Stop Time Status Last Admin Dose Admin Acetaminophen (Tylenol Tab) 650 mg Q4H PRN PO 06/13/17 08:45 07/13/17 08:44 Polyethylene (Miralax Powder Packet) 17 gm DAILY PRN PO 06/13/17 08:45 07/13/17 08:44 Ondansetron HCl (Zofran Inj) 4 mg Q6H PRN IV 06/13/17 08:45 07/13/17 08:44 Ketorolac Tromethamine (Toradol Inj) 30 mg Q6H PRN IV 06/13/17 08:45 06/18/17 08:44 Morphine Sulfate (MoRPHine SULFATE INJ) 4 mg Q3HWA PRN IV 06/13/17 08:45 06/27/17 08:44 Glucose (Glucose 40% Gel) 15-30 GRAMS 15 GRAMS... UD PRN PO 06/13/17 10:30 07/13/17 10:29 Glucose (Glucose Chew Tab) 4-8 Tablets 4 Tabl... UD PRN PO 06/13/17 10:30 07/13/17 10:29 Dextrose (Dextrose 50% 50ML Syringe) 25-50ML OF 50% DW IV FOR... UD PRN IV 06/13/17 10:30 07/13/17 10:29 Glucagon (Glucagon Inj) 1 mg UD PRN SQ 06/13/17 10:30 07/13/17 10:29 Miscellaneous Information (Consult Glycemic Management Pharmacy) 1 ea UD N/A 06/13/17 10:20 07/13/17 10:19 Sodium Chloride 1,000 ml @ 100 mls/hr Q10H IV 06/13/17 10:30 07/13/17 10:29 06/13/17 11:41 100 MLS/HR Ceftriaxone Sodium 1 gm/ Dextrose 50 ml @ 100 mls/hr Q24H IV 06/14/17 08:00 06/23/17 07:59 Clonazepam (Klonopin Tab) 0.5 mg TID PO 06/13/17 11:15 07/13/17 11:14 06/13/17 11:42 0.5 MG Escitalopram Oxalate (Lexapro Tab) 20 mg DAILY PO 06/13/17 11:30 07/13/17 11:29 06/13/17 11:42 20 MG Lamotrigine (Lamictal Tab) 100 mg BID PO 06/13/17 11:30 07/13/17 11:29 06/13/17 12:38 100 MG Levothyroxine Sodium (Synthroid Tab) 200 mcg DAILYBB PO 06/13/17 11:30 07/13/17 11:29 06/13/17 11:42 200 MCG Lisinopril (Zestril Tab) 10 mg DAILY PO 06/13/17 11:30 07/13/17 11:29 06/13/17 11:42 10 MG Phenytoin (Dilantin Chew) 50 mg HS PO 06/13/17 21:00 07/13/17 20:59 Phenytoin Sodium (Dilantin Er Cap) 200 mg BID PO 06/13/17 11:30 07/13/17 11:29 06/13/17 11:42 200 MG Simvastatin (Zocor Tab) 10 mg QPM PO 06/13/17 21:00 07/13/17 20:59 Insulin Glargine (Lantus Solostar Pen) 20 units DAILY SC 06/13/17 11:30 07/13/17 11:29 06/13/17 11:49 20 UNITS Miscellaneous (Iv Fluids Completed) 1 ea PRN PRN N/A 06/13/17 11:00 06/13/18 10:59 Insulin Aspart (novoLOG ASPART) SLIDING SCALE TODAY@0200 [place] 06/14/17 02:00 06/14/17 02:01 Insulin Aspart (novoLOG ASPART) SLIDING SCALE ACHS [place] 06/13/17 17:15 07/13/17 11:59 Review of Systems Review of Systems Additional Comments: Review of systems were evaluated from her admission history and physical Physical Exam Vital Signs: Vital Signs Past 12 Hours Date Time Temp Pulse Resp B/P (MAP) Pulse Ox O2 Delivery O2 Flow Rate FiO2 06/13/17 15:05 37.0 69 16 112/76 (88) 98 Room Air 06/13/17 11:30 Room Air 06/13/17 10:10 36.9 69 18 106/70 97 Room Air 06/13/17 09:37 73 18 135/72 97 06/13/17 07:27 74 18 121/65 99 Room Air 06/13/17 05:26 36.7 85 18 133/84 97 Room Air Physical Exam: General Appearance: WD/WN, no apparent distress Eyes: bilateral eyes normal inspection ENT: hearing grossly normal Respiratory/Chest: lungs clear, normal breath sounds, no respiratory distress, no accessory muscle use Cardiovascular: regular rate, rhythm Gastrointestinal: Abdomen: RLQ tenderness Bladder: normal bladder Neurologic/Psychiatric: alert, oriented x 3 Skin: normal color, warm/dry Assessment & Plan Assessment & Plan Assessment One episode of gross hematuria which is clearing and some right lower quadrant abdominal pain Believe this may be related just to a urinary tract infection I did review her CT scan though She has an atrophic right kidney with compensatory hypertrophy of the left kidney Both ureters aren't dilated and the more distal the ureter the more dilatation on both sides I wonder whether she may have congenital megaureters or possibly have had reflux There are no stones on the CAT scan At this point I will order a CT with dye I did talk to her about a cystoscopy which we could do in the office after her discharge If the CT with dye is not divulge why the ureters are dilated she may need a cystoscopy under anesthesia with retrogrades She also may need to have a cystogram to see if she has reflux I do not believe that any of these CT findings are acute in nature
[2017-06-13] MEDS ORDERED: OPTIRAY 320 IV PRN (17:30)
[2017-06-13] MEDS: INSULIN ASPART 100 UNITS/ML 3 ML PEN SC SCH ×2 (18:28→21:00)
--- NOTE | 2017-06-13 21:10 | DIAGNOSTIC IMAGING REPORT ---
CT UROGRAM CLINICAL HISTORY: Dilated ureters. COMPARISON STUDY: Unenhanced abdominal CT performed earlier the same day 06/13/2017. TECHNIQUE: Follow-up the IV administration of 93 cc of Optiray 320, CT urogram of the abdomen and pelvis is performed from the lung bases to the proximal femora. Images are reviewed in the axial, sagittal, and coronal planes. IV contrast was administered without complication. A dose lowering technique was utilized adhering to the principles of ALARA. The examination is degraded by large body habitus, and by streak artifact from the body wall abutting the CT gantry. CT DOSE: 1009.77 mGy.cm FINDINGS: Lung bases: The heart is normal in size and without pericardial effusion. Large pleural calcifications and scarring are identified at the right lung base. There is elevation of the right hemidiaphragm. No airspace consolidation or pleural effusion is seen. Liver: The contrast-enhanced liver is enlarged, measuring 20 cm in length. The liver demonstrates diminished attenuation consistent with hepatic steatosis. There is no intrahepatic biliary ductal dilatation. The hepatic veins and portal veins are patent. Gallbladder: Unremarkable. Spleen: Normal in size and attenuation. Pancreas: Atrophic for age. Adrenal glands: Unremarkable. Kidneys and ureters: There is markedly asymmetric cortical atrophy of the right kidney as compared to the left. There is likely compensatory hypertrophy of the left kidney. No renal calculi were seen on today's earlier unenhanced examination. There is mild bilateral hydronephrosis, right greater than left. The kidneys enhance symmetrically. No enhancing renal cortical mass is identified. There is slightly delayed excretion from the right kidney as compared to the left. There is bilateral ureteral dilatation. Urothelial thickening and periureteric inflammation is seen bilaterally, left greater than right. There is 11 mm filling defect identified in the right lower pole collecting system seen on axial image #155. The right ureter is not opacified by excreted contrast. No intraluminal filling defects are suggested but this is suboptimally assessed without intraluminal contrast. No filling defects identified within the left renal collecting system. No filling defects are suggested along the course of the left ureter noting a urine/fluid level. The distal left ureter is also not well opacified. Both ureters are dilated to the level of the bladder. Abdominal vasculature: The abdominal aorta is normal in course and caliber. Bowel: There is moderate constipation. No bowel obstruction is seen.. The appendix is well-visualized and normal. Peritoneum: There is no intraperitoneal free air or abdominal ascites. Lymphadenopathy: None. Pelvic viscera: Although decompressed, the bladder wall appears markedly thickened. There is mild pericystic inflammation. The uterus is surgically absent. No adnexal lesion is seen. Skeletal structures: The skeletal structures are osteopenic. There are bilateral pars defects at L4. There is advanced disc space narrowing with endplate sclerosis and a posterior discussed by complex at L4-L5. Grade 1 anterolisthesis is seen in this level. No lytic or blastic bony lesions are seen. Sclerotic change is noted in the sacroiliac joints. IMPRESSION: 1. There is markedly asymmetric cortical atrophy of the right kidney as compared to the left. 2. The kidneys enhance symmetrically. There is slightly delayed excretion from the right kidney as compared to left. 3. There is mild bilateral hydronephrosis, right greater than left. The ureters are significantly dilated to the level of the bladder. The degree of distention suggests chronicity. 4. No enhancing renal cortical mass is seen. 5. There is a 1.1 cm filling defect identified in the right lower pole collecting system. This could represent a urothelial lesion/neoplasm versus debris/blood clot. 6. No additional filling defects are clearly identified within the left renal collecting system or along the course of the ureters. There is no contrast present within the right ureter or the distal left ureter which degrades assessment. 7. Urothelial thickening is seen in both ureters with associated periureteric stranding. The appearance suggests infection/inflammation. Correlation with clinical findings and urinalysis will be required. 8. Although decompressed, the bladder wall appears markedly thickened and there is pericystic inflammation. Correlate clinically and with urinalysis for evidence of cystitis. A urothelial lesion in the bladder would be impossible to exclude. If further assessment is desired then cystoscopy would be appropriate. 9. Large pleural calcifications and scarring are seen in the right lung base. This likely represents the sequelae of a remote insult. Correlation with the medical history will be required. 10. Hepatomegaly and hepatic steatosis. Electronically signed by: Toby Byrd M.D. 06/13/2017 9:09 PM Dictated Date/Time: 06/13/2017 8:55 PM
[2017-06-13] MEDS: PHENYTOIN 50 MG CHEW PO SCH (21:14)
[2017-06-13] MEDS: SIMVASTATIN 10 MG TAB PO SCH (21:14)
[2017-06-13] MEDS: KETOROLAC TROMETHAMINE 30 MG/ML VIAL IV PRN (22:42)
[2017-06-13 23:13] VITALS: BP 105/63; PULSE 75; TEMP 37.2; O2SAT 95
[2017-06-14] MEDS ORDERED: INSULIN ASPART 100 UNITS/ML 3 ML PEN SC SCH (02:00)
[2017-06-14] MEDS: ACETAMINOPHEN 325 MG TAB PO PRN ×2 (04:22→14:37)
[2017-06-14] MEDS: SODIUM CHLORIDE 0.9% 1000ML 1,000 ML IV SCH ×2 (05:58→16:35)
[2017-06-14] MEDS: LEVOTHYROXINE 200 MCG TAB PO SCH (05:58)
[2017-06-14 07:11] VITALS: BP 110/72; PULSE 79; TEMP 36.4; O2SAT 98
[2017-06-14] MEDS: CEFTRIAXONE SOD INJ 1 GM in DEXTROSE 5% ADD-VANTAGE 50ML 50 ML IV SCH (07:49)
[2017-06-14 08:01] LABS: HEMATOCRIT 35.1 % (37-47); MEAN CELL VOLUME 88.4 fL (80-100); MEAN CORPUSCULAR HEMOGLOBIN 29.2 pg (25-34); MEAN PLATELET VOLUME 9.9 fL (7.4-10.4); PLATELET COUNT 185 K/uL (130-400); RED BLOOD COUNT 3.97 M/uL (4.2-5.4)
[2017-06-14 08:33] LABS: BUN/CREATININE RATIO 13.8 (10-20); CALCIUM 8.3 mg/dl (8.5-10.1); CREATININE 0.64 mg/dl (0.60-1.20); POTASSIUM 3.9 mmol/L (3.5-5.1)
[2017-06-14] MEDS ORDERED: LIRAGLUTIDE INJ SCH (09:00)
[2017-06-14] MEDS: PHENYTOIN SODIUM ER 100 MG CAP PO SCH ×2 (09:02→20:52)
[2017-06-14] MEDS: LISINOPRIL 10 MG TAB PO SCH (09:02)
[2017-06-14] MEDS: ESCITALOPRAM OXALATE 20 MG TAB PO SCH (09:02)
[2017-06-14] MEDS: CLONAZEPAM 0.5 MG TAB PO SCH ×3 (09:02→20:52)
[2017-06-14] MEDS: INSULIN ASPART 100 UNITS/ML 3 ML PEN SC SCH ×5 (09:08→21:00)
[2017-06-14] MEDS: INSULIN GLARGINE SOLOSTAR 100 UNITS/ML 3 ML PEN SC SCH (09:09)
--- NOTE | 2017-06-14 09:59 | Pharmacy Progress Note ---
Glycemic Control Progress Note Date of Service Jun 14, 2017. Scope Glycemic Pharmacist consulted for glycemic control to write orders per [facility] inpatient glycemic control protocol. Objective Accuchecks BSG (last 24hrs): Test 06/13/17 10:08 06/13/17 12:00 06/13/17 17:06 06/13/17 20:57 Bedside Glucose 168 mg/dl (70-90) 140 mg/dl (70-90) 129 mg/dl (70-90) 134 mg/dl (70-90) Test 06/14/17 01:56 06/14/17 05:27 06/14/17 05:58 06/14/17 07:50 Bedside Glucose 369 mg/dl (70-90) 44 mg/dl (70-90) 98 mg/dl (70-90) Random Glucose 231 mg/dl (70-99) Test 06/14/17 08:01 Bedside Glucose 207 mg/dl (70-90) Recent Pertinent Medications The patient is currently receiving: * Basal insulin: Lantus 20 units every 24 hours * Correctional Insulin: Novolog Correction per scale ACHS Goal Range: Low 110 mg/dL - High 140 mg/dL Correction Factor: 25 mg/dL/unit * Prandial insulin: Per carb ratio of 1 unit per 8 grams CHO consumed Outpatient Anti-Diabetic Meds * Tresiba 30-34 units SQ daily in AM * NovoLog bolus insulin, 6-7 units with meals (per carb ratio of 1:10) + SSI when BSG > 150 * Victoza 1.8mg SQ daily Assessment & Plan ASSESSMENT: * See progress note from 06/13 for more background info, in short: * Pt receiving SQ basal bolus insulin regimen for hyperglycemia secondary to baseline DM (outpatient regimen on hold),stress/infection, recent surgery * Patient received 25 units of insulin yesterday with very labile BSGs in the past 12 hours * BSGs were stable until 0200 when she had a BGS of 369. After receiving 10 units of Novolog for this, she dropped to 44 mg/dL and is back up to 207 this AM. * I'm not sure where the BSG of 369 came from unless she ate and it wasn't covered. The nurse was going to check on this for me. Her drop in BSG signifies to me that the correctional was too aggressive so I will plan to back off on this. * Fasting BSG is elevated but I'm hesitant to increase the basal dose at this time since this may be a result of hypoglycemia treatment. Will continue for now and give more if they remain elevated later today. PLAN FOR INPATIENT GLYCEMIC CONTROL: * Continue Lantus 20 units qAM for now * Continue Novolog ACHS * Goal 110-140 * LOOSEN CF to 30 * LOOSEN CR to 10 (what the patient uses at home) RECOMMENDATIONS FOR DISCHARGE: * A1c well controlled and patient closely followed by [facility] Endocrinology * Continue outpatient regimen upon discharge Thank you.
[2017-06-14] MEDS: KETOROLAC TROMETHAMINE 30 MG/ML VIAL IV PRN ×2 (10:09→16:36)
--- NOTE | 2017-06-14 11:50 | Progress Note ---
Progress Note Date of Service Jun 14, 2017. Progress Note Spelled a #1 Patient is afebrile vital signs are stable She still has some right lower quadrant discomfort although not as severe as when she was admitted. Her urine is now clear yellow. Laboratory Her white count is normal her creatinine is normal Urine culture was negative Review her CT scan with dye Again she has an atrophic right kidney with compensatory hypertrophy of the left kidney They're symmetrical uptake of the dye but there is a decrease in the secretion on the right Again she has bilateral ureteral dilatation Bladder appears to have some inflammation Assessment Bi lateral ureteral dilatation Since the patient has prompt opacification on the left side I don't think this is due to an obstruction Not really sure why she has a ureteral dilatation although I believe it is an old problem My plan at this point is to take her to the operating room on Friday for cystoscopy retrogrades and possible ureteroscopy and bladder biopsies Discussed this with her and her
[2017-06-14] MEDS ORDERED: INSULIN GLARGINE SOLOSTAR 100 UNITS/ML 3 ML PEN SC ONE (12:30)
[2017-06-14 15:10] VITALS: BP 131/82; PULSE 61; TEMP 36.8; O2SAT 97
[2017-06-14 15:15] VITALS: BP 128/83; PULSE 63; TEMP 36.8; O2SAT 95
--- NOTE | 2017-06-14 18:02 | Progress Note ---
Medicine Progress Note Date & Time of Visit: Jun 14, 2017 at 17:54. Subjective Patient denies any new complaints; states she still has right flank and abdominal pain but reports she is able to ambulate and that the pain is not as severe as the day of admission. No overnight events noted. No recurrence of hematuria or dysuria noted. Objective Last 8 Hrs Date Time Temp Pulse Resp B/P (MAP) Pulse Ox O2 Delivery O2 Flow Rate FiO2 06/14/17 15:15 36.8 63 18 128/83 (98) 95 Room Air Physical Exam: GENERAL: Patient is in no acute distress. HEENT: No acute trauma, normocephalic atraumatic, mucous membranes moist, no nasal congestion, no scleral icterus. NECK: No stridor, trachea is midline. LUNGS: Clear to auscultation bilaterally, no wheeze, no rhonchi, breath sounds equal. HEART: Without murmurs gallops or rubs, regular rate and rhythm. ABDOMEN: Soft, nondistended, bowel sounds positive, R side tender to palpation; right flank pain EXTREMITIES: No cyanosis or edema, full range of motion of all the joints without pain or difficulty, no signs for acute trauma. NEUROLOGIC: Oriented x 3, no acute motor or sensory deficits, no focal weakness. SKIN: No rash, no jaundice, no diaphoresis. Laboratory Results: Last 24 Hours Test 06/13/17 20:57 06/14/17 01:56 06/14/17 05:27 06/14/17 05:58 Bedside Glucose 134 mg/dl 369 mg/dl 44 mg/dl 98 mg/dl Test 06/14/17 07:50 06/14/17 08:01 06/14/17 11:50 White Blood Count 5.60 K/uL Red Blood Count 3.97 M/uL Hemoglobin 11.6 g/dL Hematocrit 35.1 % Mean Corpuscular Volume 88.4 fL Mean Corpuscular Hemoglobin 29.2 pg Mean Corpuscular Hemoglobin Concent 33.0 g/dl RDW Standard Deviation 40.1 fL RDW Coefficient of Variation 12.5 % Platelet Count 185 K/uL Mean Platelet Volume 9.9 fL Sodium Level 138 mmol/L Potassium Level 3.9 mmol/L Chloride Level 106 mmol/L Carbon Dioxide Level 26 mmol/L Anion Gap 6.0 mmol/L Blood Urea Nitrogen 9 mg/dl Creatinine 0.64 mg/dl Est Creatinine Clear Calc Drug Dose 118.1 ml/min Estimated GFR () 121.4 Estimated GFR (Non- 104.8 BUN/Creatinine Ratio 13.8 Random Glucose 231 mg/dl Calcium Level 8.3 mg/dl Bedside Glucose 207 mg/dl 337 mg/dl Diagnostic Imaging: IMPRESSION: 1. There is markedly asymmetric cortical atrophy of the right kidney as compared to the left. 2. The kidneys enhance symmetrically. There is slightly delayed excretion from the right kidney as compared to left. 3. There is mild bilateral hydronephrosis, right greater than left. The ureters are significantly dilated to the level of the bladder. The degree of distention suggests chronicity. 4. No enhancing renal cortical mass is seen. 5. There is a 1.1 cm filling defect identified in the right lower pole collecting system. This could represent a urothelial lesion/neoplasm versus debris/blood clot. 6. No additional filling defects are clearly identified within the left renal collecting system or along the course of the ureters. There is no contrast present within the right ureter or the distal left ureter which degrades assessment. 7. Urothelial thickening is seen in both ureters with associated periureteric stranding. The appearance suggests infection/inflammation. Correlation with clinical findings and urinalysis will be required. 8. Although decompressed, the bladder wall appears markedly thickened and there is pericystic inflammation. Correlate clinically and with urinalysis for evidence of cystitis. A urothelial lesion in the bladder would be impossible to exclude. If further assessment is desired then cystoscopy would be appropriate. 9. Large pleural calcifications and scarring are seen in the right lung base. This likely represents the sequelae of a remote insult. Correlation with the medical history will be required. 10. Hepatomegaly and hepatic steatosis. Electronically signed by: Toby Byrd M.D. Assessment & Plan HEMATURIA/FLANK PAIN: -CT Abd/pelvis does not show a stone -CT findings: "2. Marked right renal atrophy with compensatory hypertrophy of the left kidney. Mild right ureteral dilatation, wall thickening and periureteral infiltration. The findings favor an infectious process such as pyelitis, possibly on the basis of reflux. However, a neoplastic process with urothelial lesion could appear similar. Findings could be correlated with urinalysis and urine cytology. Nonspecific moderate bladder wall thickening. Urology consultation might be considered. 3. No left hydronephrosis. Marked dilatation of the distal left ureter which is age-indeterminate. The etiology for the dilatation is unclear on this exam. Differential considerations include a distal left ureteral stricture, urothelial lesion or reflux." -CT with contrast: as above but also showing contrast uptake B/L and delayed contrast excretion of the right -Consult to Urology, appreciate recommendations, believe the abnormalities noted on both scans are chronic in nature and possibly have some congenital origin but will plan for cysto with possible ureteroscopy and biopsy on Friday; have also ordered urine cytology which is pending -started on empiric abx in ER, continue with ceftriaxone daily -urine culture grew 3 different organisms, was likely contaminated -hydrate with IV fluids -pain control PRN -will keep NPO after midnight on Friday for planned cysto per Urology DIABETES: -HbA1c from 1 month ago was 7.4% -patient follows with Endocrine as outpatient -will consult Glycemic pharmacy for their assistance in restarting insulin and will need to be adjusted when patient is taking in PO -BSG were labile overnight, patient is concerned and willing to bring her own insulin if it would help SEIZURE DISORDER: -continue on home meds -has been well controlled with no recent seizures -follows with [facility] Neurology HTN: -stable -continue home meds HYPOTHYROIDISM: -continue synthroid Current Inpatient Medications: Current Inpatient Medications Medications (Trade) Dose Ordered Sig/Peggy Route Start Time Stop Time Status Last Admin Dose Admin Acetaminophen (Tylenol Tab) 650 mg Q4H PRN PO 06/13/17 08:45 07/13/17 08:44 06/14/17 14:37 650 MG Polyethylene (Miralax Powder Packet) 17 gm DAILY PRN PO 06/13/17 08:45 07/13/17 08:44 Ondansetron HCl (Zofran Inj) 4 mg Q6H PRN IV 06/13/17 08:45 07/13/17 08:44 Ketorolac Tromethamine (Toradol Inj) 30 mg Q6H PRN IV 06/13/17 08:45 06/18/17 08:44 06/14/17 16:36 30 MG Morphine Sulfate (MoRPHine SULFATE INJ) 4 mg Q3HWA PRN IV 06/13/17 08:45 06/27/17 08:44 Glucose (Glucose 40% Gel) 15-30 GRAMS 15 GRAMS... UD PRN PO 06/13/17 10:30 07/13/17 10:29 Glucose (Glucose Chew Tab) 4-8 Tablets 4 Tabl... UD PRN PO 06/13/17 10:30 07/13/17 10:29 Dextrose (Dextrose 50% 50ML Syringe) 25-50ML OF 50% DW IV FOR... UD PRN IV 06/13/17 10:30 07/13/17 10:29 Glucagon (Glucagon Inj) 1 mg UD PRN SQ 06/13/17 10:30 07/13/17 10:29 Miscellaneous Information (Consult Glycemic Management Pharmacy) 1 ea UD N/A 06/13/17 10:20 07/13/17 10:19 Sodium Chloride 1,000 ml @ 100 mls/hr Q10H IV 06/13/17 10:30 07/13/17 10:29 06/14/17 16:35 100 MLS/HR Ceftriaxone Sodium 1 gm/ Dextrose 50 ml @ 100 mls/hr Q24H IV 06/14/17 08:00 06/23/17 07:59 06/14/17 07:49 100 MLS/HR Clonazepam (Klonopin Tab) 0.5 mg TID PO 06/13/17 11:15 07/13/17 11:14 06/14/17 13:16 0.5 MG Escitalopram Oxalate (Lexapro Tab) 20 mg DAILY PO 06/13/17 11:30 07/13/17 11:29 06/14/17 09:02 20 MG Lamotrigine (Lamictal Tab) 100 mg BID PO 06/13/17 11:30 07/13/17 11:29 06/14/17 09:02 100 MG Levothyroxine Sodium (Synthroid Tab) 200 mcg DAILYBB PO 06/13/17 11:30 07/13/17 11:29 06/14/17 05:58 200 MCG Lisinopril (Zestril Tab) 10 mg DAILY PO 06/13/17 11:30 07/13/17 11:29 06/14/17 09:02 10 MG Phenytoin (Dilantin Chew) 50 mg HS PO 06/13/17 21:00 07/13/17 20:59 06/13/17 21:14 50 MG Phenytoin Sodium (Dilantin Er Cap) 200 mg BID PO 06/13/17 11:30 07/13/17 11:29 06/14/17 09:02 200 MG Simvastatin (Zocor Tab) 10 mg QPM PO 06/13/17 21:00 07/13/17 20:59 06/13/17 21:14 10 MG Miscellaneous (Iv Fluids Completed) 1 ea PRN PRN N/A 06/13/17 11:00 06/13/18 10:59 Insulin Aspart (novoLOG ASPART) SLIDING SCALE ACHS SC 06/13/17 17:15 07/13/17 11:59 06/14/17 17:18 9 UNITS Ioversol (Optiray 320) 100 ml UD PRN IV 06/13/17 17:30 06/17/17 17:29 Insulin Glargine (Lantus Solostar Pen) 30 units QAM SC 06/15/17 09:00 07/15/17 08:59 Insulin Aspart (novoLOG ASPART) SLIDING SCALE 0200 ONCE SC 06/15/17 02:00 06/15/17 02:01
[2017-06-14] MEDS: PHENYTOIN 50 MG CHEW PO SCH (20:51)
[2017-06-14] MEDS: SIMVASTATIN 10 MG TAB PO SCH (20:52)
[2017-06-14 23:16] VITALS: BP 117/76; PULSE 60; TEMP 36.5; O2SAT 94
[2017-06-15] MEDS ORDERED: INSULIN ASPART 100 UNITS/ML 3 ML PEN SC ONE (02:00)
[2017-06-15] MEDS: SODIUM CHLORIDE 0.9% 1000ML 1,000 ML IV SCH (02:45)
[2017-06-15] MEDS: LEVOTHYROXINE 200 MCG TAB PO SCH (05:51)
[2017-06-15 06:23] LABS: HEMATOCRIT 31.6 % (37-47); MEAN CELL VOLUME 87.5 fL (80-100); MEAN CORPUSCULAR HEMOGLOBIN 29.4 pg (25-34); MEAN CORPUSCULAR HGB CONC 33.5 g/dl (32-36); MEAN PLATELET VOLUME 9.5 fL (7.4-10.4); PLATELET COUNT 166 K/uL (130-400); RED BLOOD COUNT 3.61 M/uL (4.2-5.4); WHITE BLOOD COUNT 4.89 K/uL (4.8-10.8)
[2017-06-15 06:54] LABS: BUN/CREATININE RATIO 20.1 (10-20); CREATININE 0.55 mg/dl (0.60-1.20); POTASSIUM 4.3 mmol/L (3.5-5.1)
[2017-06-15 07:31] VITALS: BP 143/83; PULSE 64; TEMP 36.6; O2SAT 97
[2017-06-15 08:00] VITALS: O2SAT 97
[2017-06-15] MEDS: KETOROLAC TROMETHAMINE 30 MG/ML VIAL IV PRN ×2 (08:21→16:54)
[2017-06-15] MEDS: CEFTRIAXONE SOD INJ 1 GM in DEXTROSE 5% ADD-VANTAGE 50ML 50 ML IV SCH (08:26)
[2017-06-15] MEDS: PHENYTOIN SODIUM ER 100 MG CAP PO SCH ×2 (08:27→21:03)
[2017-06-15] MEDS: CLONAZEPAM 0.5 MG TAB PO SCH ×3 (08:27→21:02)
[2017-06-15] MEDS: ESCITALOPRAM OXALATE 20 MG TAB PO SCH (08:28)
[2017-06-15] MEDS: LISINOPRIL 10 MG TAB PO SCH (08:28)
[2017-06-15] MEDS ORDERED: INSULIN GLARGINE SOLOSTAR 100 UNITS/ML 3 ML PEN SC SCH (09:00)
[2017-06-15] MEDS: INSULIN ASPART 100 UNITS/ML 3 ML PEN SC SCH ×5 (09:14→21:17)
--- NOTE | 2017-06-15 09:56 | Pharmacy Progress Note ---
Glycemic Control Progress Note Date of Service Jun 15, 2017. Scope Glycemic Pharmacist consulted for glycemic control to write orders per [facility] inpatient glycemic control protocol. Objective Accuchecks BSG (last 24hrs): Test 06/14/17 11:50 06/14/17 16:55 06/14/17 20:32 06/15/17 01:41 Bedside Glucose 337 mg/dl (70-90) 388 mg/dl (70-90) 96 mg/dl (70-90) 81 mg/dl (70-90) Test 06/15/17 06:03 06/15/17 08:18 Random Glucose 112 mg/dl (70-99) Bedside Glucose 139 mg/dl (70-90) Recent Pertinent Medications The patient is currently receiving: * Basal insulin: Lantus 30 units q24h * Correctional Insulin: Novolog Correction per scale ACHS + 0200 Goal Range: Low 110 mg/dL - High 140 mg/dL Correction Factor: 30 mg/dL/unit * Prandial insulin: Per carb ratio of 1 unit per 10 grams CHO consumed Outpatient Anti-Diabetic Meds * Tresiba 30-34 units SQ daily in AM * NovoLog bolus insulin, 6-7 units with meals (per carb ratio of 1:10) + SSI when BSG > 150 * Victoza 1.8mg SQ daily Assessment & Plan ASSESSMENT: * See progress note from 06/14 for more background info, in short: * Pt receiving SQ basal bolus insulin regimen for hyperglycemia secondary to baseline DM (outpatient regimen on hold),stress/infection, recent surgery * BSGs were fairly labile yesterday but have improved significantly in the last 18 hours since additional Lantus was given * I just spoke with the nurse and the patient seemed to be satisfied with her glycemic control this AM, tolerated breakfast * Will plan to continue same regimen for today but patient to be NPO after midnight so will reduce Lantus dose for tomorrow AM. Will reduce only slightly to 25 units since the 20 units seemed to be too aggressive of a reduction. PLAN FOR INPATIENT GLYCEMIC CONTROL: * Continue Lantus 30 units qAM * Reduce to 25 units tomorrow for NPO status * Continue Novolog ACHS * Goal 110-140 * CF 30 * CR 10 RECOMMENDATIONS FOR DISCHARGE: * A1c well controlled and patient closely followed by [facility] Endocrinology * Continue outpatient regimen upon discharge Thank you.
--- NOTE | 2017-06-15 12:37 | Progress Note ---
Progress Note Date of Service Jun 15, 2017. Progress Note Patient is afebrile vital signs are stable She continues to have some right-sided abdominal pain although not severe Her lab results have remained stable She is voiding without problem She no longer has gross hematuria Postvoid residual was only 37 cc I'll plan on going to the operating room tomorrow for cystoscopy retrogrades bladder biopsies and fulguration possible ureteroscopy possible stents described the procedure to her today including the risks and benefits per the consent she agrees to proceed all of her questions were answered
--- NOTE | 2017-06-15 14:08 | DIAGNOSTIC IMAGING REPORT ---
CHEST 2 VIEWS ROUTINE HISTORY: pre op COMPARISON: None. FINDINGS: Right pleural thickening with dense calcification. This is likely chronic. Blunting of the right lateral costophrenic sulcus is likely due to scarring. The left lung is clear. The heart is normal in size. No pneumothorax. No definite pleural effusions IMPRESSION: Dense calcification within the right lateral pleural. Otherwise, no acute process within the chest. Electronically signed by: Ottoniel Martinez M.D. 06/15/2017 2:06 PM Dictated Date/Time: 06/15/2017 2:04 PM
[2017-06-15 15:00] VITALS: BP 138/84; PULSE 76; TEMP 36.6; O2SAT 95
--- NOTE | 2017-06-15 18:01 | Progress Note ---
Medicine Progress Note Date & Time of Visit: Jun 15, 2017 at 18:01. Objective Last 8 Hrs Date Time Temp Pulse Resp B/P (MAP) Pulse Ox O2 Delivery O2 Flow Rate FiO2 06/15/17 15:00 36.6 76 20 138/84 (102) 95 Room Air Physical Exam: GENERAL: Patient is in no acute distress. HEENT: No acute trauma, normocephalic atraumatic, mucous membranes moist, no nasal congestion, no scleral icterus. NECK: No stridor, trachea is midline. LUNGS: Clear to auscultation bilaterally, no wheeze, no rhonchi, breath sounds equal. HEART: Without murmurs gallops or rubs, regular rate and rhythm. ABDOMEN: Soft, nondistended, bowel sounds positive, R side tender to palpation; right flank pain EXTREMITIES: No cyanosis or edema, full range of motion of all the joints without pain or difficulty, no signs for acute trauma. NEUROLOGIC: Oriented x 3, no acute motor or sensory deficits, no focal weakness. SKIN: No rash, no jaundice, no diaphoresis. Laboratory Results: Last 24 Hours Test 06/14/17 20:32 06/15/17 01:41 06/15/17 06:03 06/15/17 08:18 Bedside Glucose 96 mg/dl 81 mg/dl 139 mg/dl White Blood Count 4.89 K/uL Red Blood Count 3.61 M/uL Hemoglobin 10.6 g/dL Hematocrit 31.6 % Mean Corpuscular Volume 87.5 fL Mean Corpuscular Hemoglobin 29.4 pg Mean Corpuscular Hemoglobin Concent 33.5 g/dl RDW Standard Deviation 39.9 fL RDW Coefficient of Variation 12.3 % Platelet Count 166 K/uL Mean Platelet Volume 9.5 fL Sodium Level 140 mmol/L Potassium Level 4.3 mmol/L Chloride Level 108 mmol/L Carbon Dioxide Level 27 mmol/L Anion Gap 5.0 mmol/L Blood Urea Nitrogen 11 mg/dl Creatinine 0.55 mg/dl Est Creatinine Clear Calc Drug Dose 137.4 ml/min Estimated GFR () 127.7 Estimated GFR (Non- 110.1 BUN/Creatinine Ratio 20.1 Random Glucose 112 mg/dl Calcium Level 8.0 mg/dl Test 06/15/17 12:09 Bedside Glucose 191 mg/dl Assessment & Plan HEMATURIA/FLANK PAIN: -CT Abd/pelvis does not show a stone -CT findings: "2. Marked right renal atrophy with compensatory hypertrophy of the left kidney. Mild right ureteral dilatation, wall thickening and periureteral infiltration. The findings favor an infectious process such as pyelitis, possibly on the basis of reflux. However, a neoplastic process with urothelial lesion could appear similar. Findings could be correlated with urinalysis and urine cytology. Nonspecific moderate bladder wall thickening. Urology consultation might be considered. 3. No left hydronephrosis. Marked dilatation of the distal left ureter which is age-indeterminate. The etiology for the dilatation is unclear on this exam. Differential considerations include a distal left ureteral stricture, urothelial lesion or reflux." -CT with contrast: as above but also showing contrast uptake B/L and delayed contrast excretion of the right -Consult to Urology, appreciate recommendations, believe the abnormalities noted on both scans are chronic in nature and possibly have some congenital origin but will plan for cysto with possible ureteroscopy and biopsy on Friday; have also ordered urine cytology which is pending -started on empiric abx in ER, continue with ceftriaxone daily -urine culture grew 3 different organisms, was likely contaminated -hydrate with IV fluids -pain control PRN -will keep NPO after midnight on Friday for planned cysto per Urology DIABETES: -HbA1c from 1 month ago was 7.4% -patient follows with Endocrine as outpatient -will consult Glycemic pharmacy for their assistance in restarting insulin and will need to be adjusted when patient is taking in PO -BSG were labile overnight, patient is concerned and willing to bring her own insulin if it would help SEIZURE DISORDER: -continue on home meds -has been well controlled with no recent seizures -follows with [facility] Neurology HTN: -stable -continue home meds HYPOTHYROIDISM: -continue synthroid Current Inpatient Medications: Current Inpatient Medications Medications (Trade) Dose Ordered Sig/Peggy Route Start Time Stop Time Status Last Admin Dose Admin Acetaminophen (Tylenol Tab) 650 mg Q4H PRN PO 06/13/17 08:45 07/13/17 08:44 06/14/17 14:37 650 MG Polyethylene (Miralax Powder Packet) 17 gm DAILY PRN PO 06/13/17 08:45 07/13/17 08:44 Ondansetron HCl (Zofran Inj) 4 mg Q6H PRN IV 06/13/17 08:45 07/13/17 08:44 Ketorolac Tromethamine (Toradol Inj) 30 mg Q6H PRN IV 06/13/17 08:45 06/18/17 08:44 06/15/17 16:54 30 MG Morphine Sulfate (MoRPHine SULFATE INJ) 4 mg Q3HWA PRN IV 06/13/17 08:45 06/27/17 08:44 06/14/17 22:14 4 MG Glucose (Glucose 40% Gel) 15-30 GRAMS 15 GRAMS... UD PRN PO 06/13/17 10:30 07/13/17 10:29 Glucose (Glucose Chew Tab) 4-8 Tablets 4 Tabl... UD PRN PO 06/13/17 10:30 07/13/17 10:29 Dextrose (Dextrose 50% 50ML Syringe) 25-50ML OF 50% DW IV FOR... UD PRN IV 06/13/17 10:30 07/13/17 10:29 Glucagon (Glucagon Inj) 1 mg UD PRN SQ 06/13/17 10:30 07/13/17 10:29 Miscellaneous Information (Consult Glycemic Management Pharmacy) 1 ea UD N/A 06/13/17 10:20 07/13/17 10:19 Ceftriaxone Sodium 1 gm/ Dextrose 50 ml @ 100 mls/hr Q24H IV 06/14/17 08:00 06/23/17 07:59 06/15/17 08:26 100 MLS/HR Clonazepam (Klonopin Tab) 0.5 mg TID PO 06/13/17 11:15 07/13/17 11:14 06/15/17 14:22 0.5 MG Escitalopram Oxalate (Lexapro Tab) 20 mg DAILY PO 06/13/17 11:30 07/13/17 11:29 06/15/17 08:28 20 MG Lamotrigine (Lamictal Tab) 100 mg BID PO 06/13/17 11:30 07/13/17 11:29 06/15/17 08:28 100 MG Levothyroxine Sodium (Synthroid Tab) 200 mcg DAILYBB PO 06/13/17 11:30 07/13/17 11:29 06/15/17 05:51 200 MCG Lisinopril (Zestril Tab) 10 mg DAILY PO 06/13/17 11:30 07/13/17 11:29 06/15/17 08:28 10 MG Phenytoin (Dilantin Chew) 50 mg HS PO 06/13/17 21:00 07/13/17 20:59 06/14/17 20:51 50 MG Phenytoin Sodium (Dilantin Er Cap) 200 mg BID PO 06/13/17 11:30 07/13/17 11:29 06/15/17 08:27 200 MG Simvastatin (Zocor Tab) 10 mg QPM PO 06/13/17 21:00 07/13/17 20:59 06/14/17 20:52 10 MG Miscellaneous (Iv Fluids Completed) 1 ea PRN PRN N/A 06/13/17 11:00 06/13/18 10:59 Insulin Aspart (novoLOG ASPART) SLIDING SCALE ACHS SC 06/13/17 17:15 07/13/17 11:59 06/15/17 13:05 7 UNITS Ioversol (Optiray 320) 100 ml UD PRN IV 06/13/17 17:30 06/17/17 17:29 Insulin Glargine (Lantus Solostar Pen) 30 units QAM SC 06/15/17 09:00 07/15/17 08:59 Future hold 06/15/17 09:15 30 UNITS Insulin Glargine (Lantus Solostar Pen) 25 units QAM SC 06/16/17 09:00 06/16/17 09:01
[2017-06-15] MEDS: PHENYTOIN 50 MG CHEW PO SCH (21:03)
[2017-06-15] MEDS: SIMVASTATIN 10 MG TAB PO SCH (21:04)
[2017-06-15] MEDS: ACETAMINOPHEN 325 MG TAB PO PRN (21:07)
[2017-06-16] VITALS (7 sets, daily range): BP systolic 133–168; BP diastolic 69–89; PULSE 55–75; TEMP 36.3–36.8; O2SAT 92–100; Ht 160 cm; Wt 97.3 kg
[2017-06-16] MEDS: DEXTROSE 50% 50 ML SYR IV PRN ×2 (04:48→08:17)
[2017-06-16] MEDS: KETOROLAC TROMETHAMINE 30 MG/ML VIAL IV PRN ×3 (05:15→19:57)
[2017-06-16] MEDS: LEVOTHYROXINE 200 MCG TAB PO SCH (05:20)
[2017-06-16] MEDS: INSULIN ASPART 100 UNITS/ML 3 ML PEN SC SCH ×4 (08:00→21:50)
--- NOTE | 2017-06-16 08:00 | Progress Note ---
Subjective Date of Service: Jun 16, 2017. Subjective Pt evaluation today including: conversation w/ patient, chart review, lab review Voiding: no voiding problems 51 yo female with gross hematuria and dilated bilateral ureters. Pending cysto with bilateral retrogrades and possible bx today. Denies any further gross hematuria or dysuria. She reports a drop in her glucose overnight to 54. She received Dextrose. Glucose of 104 this morning. She is concerned it will drop again since she is NPO for surgery. Problem List Medical Problems: (1) Hematuria Status: Acute (2) Right flank pain Status: Acute Review of Systems Constitutional: No fever, No chills Respiratory: No shortness of breath Cardiac: No chest pain Abdomen: No pain, No nausea, No vomiting Female : No dysuria, No hematuria Heme: No abnormal bleeding/bruising Objective Vital Signs Date Time Temp Pulse Resp B/P (MAP) Pulse Ox O2 Delivery O2 Flow Rate FiO2 06/16/17 07:18 36.5 75 19 146/85 (105) 98 Room Air 06/16/17 00:26 36.3 66 16 138/81 (100) 100 Room Air 06/16/17 00:00 Room Air 06/15/17 16:50 Room Air 06/15/17 15:00 36.6 76 20 138/84 (102) 95 Room Air 06/15/17 08:00 97 Room Air Physical Exam General Appearance: no apparent distress Eyes: normal inspection ENT: hearing grossly normal Neck: no JVD Respiratory/Chest: no respiratory distress, no accessory muscle use Cardiovascular: no JVD Extremities: normal inspection Neurologic/Psychiatric: alert, normal mood/affect, oriented x 3 Skin: normal color Laboratory Results Last 24 Hours Test 06/15/17 08:18 06/15/17 12:09 06/15/17 17:22 06/15/17 20:59 Bedside Glucose 139 mg/dl 191 mg/dl 257 mg/dl 101 mg/dl Test 06/16/17 04:38 06/16/17 05:05 Bedside Glucose 59 mg/dl 104 mg/dl Assessment and Plan A/P: Gross hematuria, dilation of bilateral ureters AFVSS. Continue to plan for the OR today with Dr. Briseno for a cystoscopy with bilateral retrogrades, possible biopsy and fulguration, and possible stent placement. Risks and benefits of the procedure discussed with the pt. All questions answered. Pt agrees to the procedure at this time.
[2017-06-16] MEDS: CEFTRIAXONE SOD INJ 1 GM in DEXTROSE 5% ADD-VANTAGE 50ML 50 ML IV SCH (08:04)
[2017-06-16] MEDS ORDERED: INSULIN GLARGINE SOLOSTAR 100 UNITS/ML 3 ML PEN SC SCH (09:00)
[2017-06-16] MEDS: ESCITALOPRAM OXALATE 20 MG TAB PO SCH (09:59)
[2017-06-16] MEDS: PHENYTOIN SODIUM ER 100 MG CAP PO SCH ×2 (10:00→21:53)
[2017-06-16] MEDS ORDERED: D5W AND NSS 1,000 ML IV SCH (10:00)
[2017-06-16] MEDS: LISINOPRIL 10 MG TAB PO SCH (10:00)
[2017-06-16] MEDS: CLONAZEPAM 0.5 MG TAB PO SCH ×3 (10:01→21:53)
[2017-06-16] MEDS ORDERED: INSULIN GLARGINE SOLOSTAR 100 UNITS/ML 3 ML PEN SC ONE (10:30)
--- NOTE | 2017-06-16 13:22 | History & Physical Bridge Note ---
H&P Re-Evaluation Bridge Note: I have examined the patient, reviewed the History & Physical and in the interval since the performance of the History & Physical I have noted the following changes of clinical significance: No changes noted
--- NOTE | 2017-06-16 13:27 | Pharmacy Progress Note ---
Glycemic Control Progress Note Date of Service Jun 16, 2017. Scope Glycemic Pharmacist consulted for glycemic control to write orders per [facility] inpatient glycemic control protocol. Objective Accuchecks BSG (last 24hrs): Test 06/15/17 17:22 06/15/17 20:59 06/16/17 04:38 06/16/17 05:05 Bedside Glucose 257 mg/dl (70-90) 101 mg/dl (70-90) 59 mg/dl (70-90) 104 mg/dl (70-90) Test 06/16/17 08:06 06/16/17 08:39 Bedside Glucose 64 mg/dl (70-90) 109 mg/dl (70-90) Recent Pertinent Medications The patient is currently receiving: * Basal insulin: Lantus 30 units every 24 hours in the morning ( changed to Lantus 25 units this morning for NPO status) * Correctional Insulin: Novolog Correction per scale ACHS Goal Range: Low 110 mg/dL - High 140 mg/dL Correction Factor: 30 mg/dL/unit * Prandial insulin: Per carb ratio of 1 unit per 10 grams CHO consumed Outpatient Anti-Diabetic Meds Victoza 1.8 mg SQ daily Tresiba 34 units SQ qAM Novolog with meals - 1 units for every 10 grams of carbohydrates consumed Assessment & Plan ASSESSMENT: * See progress note from 06/15/17 for more background info, in short: * Pt receiving SQ basal bolus insulin regimen for hyperglycemia secondary to baseline DM (outpatient regimen on hold), stress plus possible UTI currently on Rocephin, POD 0 for urology procedure so currently NPO * Patient is currently receiving an average of ~50-80 units of insulin per day * 30 units of basal insulin * 20-50 units of prandial/correctional insulin * BSGs ranging 59 - 111 mg/dl over the past 24hrs * Changes needed to insulin regimen: * AM Fasting BSG = 59 mg/dl. This is below goal range for patient based on inpatient targets and co-morbidities. The patient had two low blood sugars this morning - 59 mg/L and 64 mg/dL which were both treated with dextrose pushes. This is most likely second to NPO status. Since the patient is a type 1 diabetic , the Lantus dose was reduced further to 50% of home dose. Dextrose IV was started this morning during NPO status. The plan is to discharge the patient after her procedure, and she can continue her home regimen. If patient remains , a sliding scale of Lantus will be started tomorrow morning. * Post-prandial BSGs have been very labile - will loosen correction factor slightly and expand goal range to help prevent wide swings of blood sugars. * Total daily dose = between 50-80 units. Currently the patient most likely requires around 60 units of insulin per day. Have adjusted insulin accordingly. * Additional notes / comments: PLAN FOR INPATIENT GLYCEMIC CONTROL: * STARTING Lantus 20-25 units SQ AM (Lantus 20 units if blood sugar less than 140 mg/dL and Lantus 25 units if blood sugar 140 mg/dL or greater) * LOOSENING correction factor to 35 mg/dl/unit * Continuing carb ratio of 1 unit per 10 grams CHO consumed * LOOSENING goal range to Low 120 mg/dL - High 160 mg/dL RECOMMENDATIONS FOR DISCHARGE: * see note from 06/14/17 Thank you.
[2017-06-16] MEDS ORDERED: ONDANSETRON INJ 2 MG/ML 2 ML VIAL ONE (13:32)
[2017-06-16] MEDS ORDERED: LIDOCAINE HCL 2% 2 ML VIAL (20MG/ML) ONE (13:32)
[2017-06-16] MEDS ORDERED: DEXAMETHASONE SOD INJ 4 MG/ML VIAL ONE (13:32)
[2017-06-16] MEDS ORDERED: PROPOFOL IV EMULSION 10 MG/ML 20 ML VIAL IV ONE (13:33)
[2017-06-16] MEDS ORDERED: MIDAZOLAM HCL 1 MG/ML 2ML VIAL ONE (13:33)
[2017-06-16] MEDS ORDERED: FENTANYL CITRATE INJ 50 MCG/1 ML 2 ML VIAL ONE (13:36)
[2017-06-16] MEDS ORDERED: FENTANYL CITRATE INJ 50 MCG/1 ML 2 ML VIAL IV PRN (13:45)
[2017-06-16] MEDS ORDERED: ATROPINE SULFATE 0.1 MG/ML 5ML SYR IV PRN (13:45)
[2017-06-16] MEDS ORDERED: EpHEDrine SULFATE INJ 50 MG/ML AMP IV PRN (13:45)
[2017-06-16] MEDS ORDERED: ONDANSETRON INJ 2 MG/ML 2 ML VIAL IV PRN (13:45)
[2017-06-16] MEDS ORDERED: CONRAY 30% 150ML BOTTLE ONE (14:40)
--- NOTE | 2017-06-16 15:43 | [facility] Operative Report ---
Operative Report Operative Date Jun 16, 2017. Pre-Operative Diagnosis Gross Hematuria, Hydronephrosis Post-Operative Diagnosis Gross Hematuria, Hydronephrosis Procedure(s) Performed Cystoscopy bilateral retrograde pyelograms bilateral ureteroscopy and placement of indwelling double-J right ureteral stent Surgeon Dr. Briseno Clinical Trainer Surgeon(s) none Estimated Blood Loss 0 ml Findings Cystoscopic exam showed a normal urethra and bladder showed no mucosal abnormalities. Left and right retrograde showed ureteral dilatation left greater than right there was no hydronephrosis so there were no filling defects. Ureteroscopy again showed no tumors or stones in the left and right ureter a filling defect that was seen on the CT scan in the lower pole of the right kidney was visualized the lower pole was also normal Specimens None per surgeon Drains 6 Gibraltarian by 26 cm right ureteral stent Anesthesia Gen. Complication(s) None Disposition Recovery Room / PACU Indications 51-year-old white female with the right abdomen and flank pain and gross hematuria. She was found to have bilateral ureteral dilatation on CT Description of Procedure Patient was brought to the operating suite placed on the operating table. After the induction of an adequate general anesthetic and appropriate timeout patient was placed in a dorsal lithotomy position. Lower abdomen and genitalia were prepped with Hibiclens draped in a sterile fashion. Next using a 22 [place]arian cystoscope routine cystoscopic exam was performed with the above-noted findings with the 30 and 70 lenses. Following this using a 4.8 [place]tarian cone- tipped catheter left and right retrograde pyelograms were performed. Next an 038 guidewire is passed up the left ureter under fluoroscopic guidance to position the renal pelvis intramural tunnel was dilated with a 10 Gib[place]tarian dilator ureteroscopy was done which showed no mucosal abnormalities in the ureter. Guidewire is removed. It was then passed up the right ureter under fluoroscopic guidance to position the renal pelvis. Again a 10 Gibraltarian dilator was used to dilate the intramural tunnel using a flexible ureteroscope ureteroscopy was done. Patient had a CAT scan that was thought to possibly show a filling defect in the lower pole. The lower pole was examined and there were no tumors or stones seen. After completing this the ureteroscope was removed. The guidewire was rethreaded the cystoscope and a 6 Gib[place]tarian by 26 cm stent was passed up the right ureter to position the renal pelvis confirmed by fluoroscopy there was a good curl at the bladder level. Patient's bladder was then drained cystoscope and sheath removed. All needle sponge and instrument counts were correct at the end of the case. Patient tolerated the procedure well and was taken to the recovery room in stable condition I attest to the content of the Intraoperative Record and any orders documented therein. Any exceptions are noted below.
--- NOTE | 2017-06-16 15:54 | DIAGNOSTIC IMAGING REPORT ---
RETROGRADE INCLUDES KUB HISTORY: 51 years-old Female RETROGRADE, POSSIBLE STENTS bilateral hydronephrosis and urothelial thickening seen on comparison study. COMPARISON: CT 06/13/2017 TECHNIQUE: 14 spot fluoroscopic images of the pelvis and abdomen were obtained utilizing 103.7 seconds of fluoroscopy time. FINDINGS: The first set of images demonstrates placement of a left-sided ureteroscope with injection of contrast into a moderately dilated left ureter and mildly dilated left renal collecting system. No focal filling defects on the left are identified. The latter images demonstrate placement of a right-sided ureteroscope with injection of contrast into a mildly dilated right ureter and right renal collecting system. There is blunting of the calyces throughout on the right. No focal filling defect is seen within the inferior pole right kidney to correlate with finding seen on comparison CT. The last 2 images demonstrate placement of a right-sided ureteral stent with proximal portion of the stent within the region of the right ureter. The distal portion of the right ureteral stent was not imaged. IMPRESSION: Fluoroscopic assistance as above. Please see procedural report for further details. The above report was generated using voice recognition software. It may contain grammatical, syntax or spelling errors. Electronically signed by: Romie Milton M.D. 06/16/2017 3:52 PM Dictated Date/Time: 06/16/2017 3:48 PM
--- NOTE | 2017-06-16 16:43 | Anesthesiology Progress Note ---
Anesthesia Post Op Note Date & Time Jun 16, 2017 at 16:43 Vital Signs Pain Intensity: 0 Vital Signs Past 12 Hours Date Time Temp Pulse Resp B/P (MAP) Pulse Ox O2 Delivery O2 Flow Rate FiO2 06/16/17 15:32 36.2 71 16 131/69 100 Mask 10 06/16/17 07:30 Room Air 06/16/17 07:18 36.5 75 19 146/85 (105) 98 Room Air Notes Mental Status: alert / awake / arousable, participated in evaluation Pt Amnestic to Procedure: Yes Nausea / Vomiting: adequately controlled Pain: adequately controlled Airway Patency, RR, SpO2: stable & adequate BP & HR: stable & adequate Hydration State: stable & adequate Anesthetic Complications: no major complications apparent
[2017-06-16] MEDS: PHENYTOIN 50 MG CHEW PO SCH (21:54)
[2017-06-16] MEDS: SIMVASTATIN 10 MG TAB PO SCH (21:54)
[2017-06-17 03:29] VITALS: BP 145/82; PULSE 58; TEMP 36.6; O2SAT 93
[2017-06-17] MEDS: LEVOTHYROXINE 200 MCG TAB PO SCH (05:39)
[2017-06-17 06:34] LABS: HEMATOCRIT 32.5 % (37-47); MEAN CELL VOLUME 87.1 fL (80-100); MEAN CORPUSCULAR HEMOGLOBIN 29.5 pg (25-34); MEAN CORPUSCULAR HGB CONC 33.8 g/dl (32-36); MEAN PLATELET VOLUME 9.3 fL (7.4-10.4); PLATELET COUNT 205 K/uL (130-400); RED BLOOD COUNT 3.73 M/uL (4.2-5.4)
[2017-06-17 07:11] LABS: BUN/CREATININE RATIO 15.1 (10-20); CALCIUM 8.5 mg/dl (8.5-10.1); CREATININE 0.74 mg/dl (0.60-1.20); POTASSIUM 4.6 mmol/L (3.5-5.1)
[2017-06-17 07:58] VITALS: BP 162/89; PULSE 64; TEMP 36.7; O2SAT 95
[2017-06-17] MEDS: CEFTRIAXONE SOD INJ 1 GM in DEXTROSE 5% ADD-VANTAGE 50ML 50 ML IV SCH (08:04)
[2017-06-17] MEDS: ESCITALOPRAM OXALATE 20 MG TAB PO SCH (08:04)
[2017-06-17] MEDS: PHENYTOIN SODIUM ER 100 MG CAP PO SCH (08:06)
[2017-06-17] MEDS: LISINOPRIL 10 MG TAB PO SCH (08:06)
[2017-06-17] MEDS: KETOROLAC TROMETHAMINE 30 MG/ML VIAL IV PRN (08:07)
[2017-06-17] MEDS ORDERED: TAMSULOSIN HCL 0.4 MG CAP PO ONE (08:08)
--- NOTE | 2017-06-17 08:14 | Progress Note ---
Subjective Date of Service: Jun 17, 2017. Subjective Pt evaluation today including: conversation w/ patient, chart review, lab review Voiding: no voiding problems 51 yo female s/p cysto and right ureteral stent placement. Pt c/o some right flank discomfort, dysuria, and hematuria this morning. Denies n/v. Labs stable. Problem List Medical Problems: (1) Hematuria Status: Acute (2) Right flank pain Status: Acute Review of Systems Constitutional: No fever, No chills Respiratory: No shortness of breath Cardiac: No chest pain Abdomen: No pain, No nausea, No vomiting Female : + dysuria, + hematuria Heme: No abnormal bleeding/bruising Objective Vital Signs Date Time Temp Pulse Resp B/P (MAP) Pulse Ox O2 Delivery O2 Flow Rate FiO2 06/17/17 07:58 36.7 64 16 162/89 (113) 95 Room Air 06/17/17 03:29 36.6 58 16 145/82 (103) 93 Room Air 06/17/17 00:00 Room Air 06/16/17 23:35 36.4 70 18 133/78 (96) 94 Room Air 06/16/17 20:00 36.3 55 17 168/69 (102) 94 Room Air 06/16/17 19:10 36.8 66 17 162/89 (113) 92 Room Air 06/16/17 18:10 36.6 69 17 153/81 (105) 98 Nasal Cannula 3.0 06/16/17 17:35 36.3 64 20 142/87 (105) 97 Nasal Cannula 3.0 06/16/17 17:00 Nasal Cannula 06/16/17 17:00 Nasal Cannula 06/16/17 16:48 36.6 67 18 134/79 95 Nasal Cannula 2 06/16/17 16:47 65 21 06/16/17 16:47 65 21 94 06/16/17 16:46 134/79 06/16/17 16:42 63 15 94 06/16/17 16:42 64 15 06/16/17 16:41 129/77 06/16/17 16:37 65 12 06/16/17 16:37 69 12 92 06/16/17 16:36 121/67 06/16/17 16:32 66 14 99 06/16/17 16:32 66 14 06/16/17 16:31 132/79 06/16/17 16:27 66 13 91 06/16/17 16:27 65 13 06/16/17 16:26 128/78 06/16/17 16:22 23 06/16/17 16:22 70 23 06/16/17 16:21 137/85 06/16/17 16:17 69 19 06/16/17 16:17 70 19 79 06/16/17 16:16 131/72 06/16/17 16:12 70 16 89 06/16/17 16:12 70 16 06/16/17 16:10 136/77 06/16/17 16:07 74 13 87 06/16/17 16:07 75 13 06/16/17 16:06 133/42 06/16/17 16:02 73 22 92 06/16/17 16:02 72 22 06/16/17 16:00 135/71 06/16/17 15:57 74 17 06/16/17 15:57 74 17 94 06/16/17 15:56 117/78 06/16/17 15:52 66 22 06/16/17 15:52 68 22 99 06/16/17 15:51 135/77 06/16/17 15:47 74 21 99 06/16/17 15:47 72 21 06/16/17 15:46 133/75 06/16/17 15:42 72 20 06/16/17 15:42 72 20 100 06/16/17 15:41 131/69 06/16/17 15:37 75 18 100 06/16/17 15:37 75 18 06/16/17 15:36 133/80 06/16/17 15:32 81 141/74 99 06/16/17 15:32 36.2 71 16 131/69 100 Mask 10 06/16/17 15:32 81 Physical Exam General Appearance: no apparent distress Eyes: normal inspection ENT: hearing grossly normal Neck: no JVD Respiratory/Chest: no respiratory distress, no accessory muscle use Cardiovascular: no JVD Extremities: normal inspection Neurologic/Psychiatric: alert, normal mood/affect, oriented x 3 Skin: normal color Laboratory Results Last 24 Hours Test 06/16/17 08:39 06/16/17 12:08 06/16/17 14:01 06/16/17 15:40 Bedside Glucose 109 mg/dl 111 mg/dl 78 mg/dl 68 mg/dl Test 06/16/17 17:09 06/16/17 17:49 06/16/17 20:49 06/17/17 02:58 Bedside Glucose 66 mg/dl 94 mg/dl 102 mg/dl 172 mg/dl Test 06/17/17 06:21 White Blood Count 4.80 K/uL Red Blood Count 3.73 M/uL Hemoglobin 11.0 g/dL Hematocrit 32.5 % Mean Corpuscular Volume 87.1 fL Mean Corpuscular Hemoglobin 29.5 pg Mean Corpuscular Hemoglobin Concent 33.8 g/dl RDW Standard Deviation 40.1 fL RDW Coefficient of Variation 12.5 % Platelet Count 205 K/uL Mean Platelet Volume 9.3 fL Sodium Level 140 mmol/L Potassium Level 4.6 mmol/L Chloride Level 107 mmol/L Carbon Dioxide Level 28 mmol/L Anion Gap 6.0 mmol/L Blood Urea Nitrogen 11 mg/dl Creatinine 0.74 mg/dl Est Creatinine Clear Calc Drug Dose 102.1 ml/min Estimated GFR () 110.3 Estimated GFR (Non- 95.1 BUN/Creatinine Ratio 15.1 Random Glucose 167 mg/dl Calcium Level 8.5 mg/dl Assessment and Plan POD #1 s/p cysto with right ureteral stent placement AFVSS. Pt doing well clinically. Discussed with the pt that flank discomfort, dysuria, and hematuria are all common after this procedure. Will start her on Pyridium and Flomax to help with stent discomfort. Pt OK for d/c home from perspective. Recommend d/c home on Pyridium, Flomax, 3 days of Cipro, and oral pain medication. Will arrange for outpatient f/u with Dr. Briseno in 2 weeks.
[2017-06-17] MEDS: INSULIN ASPART 100 UNITS/ML 3 ML PEN SC SCH ×2 (08:53→12:50)
[2017-06-17] MEDS ORDERED: INSULIN GLARGINE SOLOSTAR 100 UNITS/ML 3 ML PEN SC SCH (09:00)
[2017-06-17] MEDS: CLONAZEPAM 0.5 MG TAB PO SCH (09:00)
[2017-06-17] MEDS: PHENAZOPYRIDINE HCL 200 MG TAB PO SCH ×2 (09:16→12:46)
--- NOTE | 2017-06-17 09:56 | Anesthesiology Progress Note ---
Anesthesia Post Op Note Date & Time Jun 17, 2017 at 09:55 Vital Signs Vital Signs Past 12 Hours Date Time Temp Pulse Resp B/P (MAP) Pulse Ox O2 Delivery O2 Flow Rate FiO2 06/17/17 07:58 36.7 64 16 162/89 (113) 95 Room Air 06/17/17 03:29 36.6 58 16 145/82 (103) 93 Room Air 06/17/17 00:00 Room Air 06/16/17 23:35 36.4 70 18 133/78 (96) 94 Room Air Notes Mental Status: alert / awake / arousable, participated in evaluation Pt Amnestic to Procedure: Yes Nausea / Vomiting: adequately controlled Pain: adequately controlled Airway Patency, RR, SpO2: stable & adequate BP & HR: stable & adequate Hydration State: stable & adequate Anesthetic Complications: no major complications apparent
--- NOTE | 2017-06-17 11:24 | Progress Note ---
Internal Med Progress Note Date of Service: Jun 17, 2017. Provider Documentation: SUBJECTIVE: The patient was seen and examined Complains of right Flunk and Loin pain Denies any fever,chills ,no nausea and or vomiting Wants to go home OBJECTIVE: Vital Signs-as noted below Exam: General-no distress at rest Eyes-normal ENT-normal Neck-supple Lungs-Clear to ausucltate bilaterally Heart-Regular,no murmur Abdomen-Soft,Tender right mid abdomen and right Flunk Extremities-Trace edema bilaterally Neuro-AAOx3 Lab data as noted below. ASSESSMENT & PLAN: HEMATURIA/FLANK PAIN: Bilateral Hydronephrosis ,R.L with ,bilateral Ureteral dilation and Thickened Urinary Bladder wall Appreciate Urology input POD #1 s/p cysto with right ureteral stent placement CT of the Abdomen and Pelvis 1. There is markedly asymmetric cortical atrophy of the right kidney as comparer to the left. 2. The kidneys enhance symmetrically. There is slightly delayed excretion from the right kidney as compared to left. 3. There is mild bilateral hydronephrosis, right greater than left. The ureters are significantly dilated to the level of the bladder. The degree of distention suggests chronicity. 4. No enhancing renal cortical mass is seen. 5. There is a 1.1 cm filling defect identified in the right lower pole collecting system. This could represent a urothelial lesion/neoplasm versus debris/blood clot. 6. No additional filling defects are clearly identified within the left renal collecting system or along the course of the ureters. There is no contrast present within the right ureter or the distal left ureter which degrades assessment. 7. Urothelial thickening is seen in both ureters with associated periureteric stranding. The appearance suggests infection/inflammation. Correlation with clinical findings and urinalysis will be required. 8. Although decompressed, the bladder wall appears markedly thickened and there is pericystic inflammation. Correlate clinically and with urinalysis for evidence of cystitis. A urothelial lesion in the bladder would be impossible to exclude. If further assessment is desired then cystoscopy would be appropriate. 9. Large pleural calcifications and scarring are seen in the right lung base. This likely represents the sequelae of a remote insult. Correlation with the medical history will be required. 10. Hepatomegaly and hepatic steatosis. -started on empiric abx in ER, continue with ceftriaxone daily -urine culture grew 3 different organisms, was likely contaminated -pain control PRN -clinically a lot better Wants to go home Will discharge her today : on Pyridium, Flomax, 3 days of Cipro, and oral pain medication. DIABETES: -HbA1c from 1 month ago was 7.4% -patient follows with Endocrine as outpatient -will consult Glycemic pharmacy for their assistance in restarting insulin and will need to be adjusted when patient is taking in PO -BSG were labile overnight, patient is concerned and willing to bring her own insulin if it would help SEIZURE DISORDER: -continue on home meds -has been well controlled with no recent seizures -follows with [facility]rology -no acute issue HTN: -stable -continue home meds HYPOTHYROIDISM: -continue Synthroid DISPOSITION Likely discharge this afternoon OP appointment with Dr. Briseno in 2 weeks. Vital Signs: Date Time Temp Pulse Resp B/P (MAP) Pulse Ox O2 Delivery O2 Flow Rate FiO2 06/17/17 07:58 36.7 64 16 162/89 (113) 95 Room Air 06/17/17 03:29 36.6 58 16 145/82 (103) 93 Room Air 06/17/17 00:00 Room Air 06/16/17 23:35 36.4 70 18 133/78 (96) 94 Room Air 06/16/17 20:00 36.3 55 17 168/69 (102) 94 Room Air 06/16/17 19:10 36.8 66 17 162/89 (113) 92 Room Air 06/16/17 18:10 36.6 69 17 153/81 (105) 98 Nasal Cannula 3.0 06/16/17 17:35 36.3 64 20 142/87 (105) 97 Nasal Cannula 3.0 06/16/17 17:00 Nasal Cannula 06/16/17 17:00 Nasal Cannula 06/16/17 16:48 36.6 67 18 134/79 95 Nasal Cannula 2 06/16/17 16:47 65 21 06/16/17 16:47 65 21 94 06/16/17 16:46 134/79 06/16/17 16:42 63 15 94 06/16/17 16:42 64 15 06/16/17 16:41 129/77 06/16/17 16:37 65 12 06/16/17 16:37 69 12 92 06/16/17 16:36 121/67 10/16/17 16:32 66 14 99 06/16/17 16:32 66 14 06/16/17 16:31 132/79 06/16/17 16:27 66 13 91 06/16/17 16:27 65 13 06/16/17 16:26 128/78 06/16/17 16:22 23 06/16/17 16:22 70 23 06/16/17 16:21 137/85 06/16/17 16:17 69 19 06/16/17 16:17 70 19 79 06/16/17 16:16 131/72 06/16/17 16:12 70 16 89 06/16/17 16:12 70 16 06/16/17 16:10 136/77 06/16/17 16:07 74 13 87 06/16/17 16:07 75 13 06/16/17 16:06 133/42 06/16/17 16:02 73 22 92 06/16/17 16:02 72 22 06/16/17 16:00 135/71 06/16/17 15:57 74 17 06/16/17 15:57 74 17 94 06/16/17 15:56 117/78 06/16/17 15:52 66 22 06/16/17 15:52 68 22 99 06/16/17 15:51 135/77 06/16/17 15:47 74 21 99 06/16/17 15:47 72 21 06/16/17 15:46 133/75 06/16/17 15:42 72 20 06/16/17 15:42 72 20 100 06/16/17 15:41 131/69 06/16/17 15:37 75 18 100 06/16/17 15:37 75 18 06/16/17 15:36 133/80 06/16/17 15:32 81 141/74 99 06/16/17 15:32 36.2 71 16 131/69 100 Mask 10 06/16/17 15:32 81 Lab Results: Results Past 24 Hours Test 06/16/17 12:08 06/16/17 14:01 06/16/17 15:40 06/16/17 17:09 Range/Units Bedside Glucose 111 78 68 66 70-90 mg/dl Test 06/16/17 17:49 06/16/17 20:49 06/17/17 02:58 06/17/17 06:21 Range/Units Bedside Glucose 94 102 172 70-90 mg/dl White Blood Count 4.80 4.8-10.8 K/uL Red Blood Count 3.73 4.2-5.4 M/uL Hemoglobin 11.0 12.0-16.0 g/dL Hematocrit 32.5 37-47 % Mean Corpuscular Volume 87.1 80-100 fL Mean Corpuscular Hemoglobin 29.5 25-34 pg Mean Corpuscular Hemoglobin Concent 33.8 32-36 g/dl RDW Standard Deviation 40.1 36.4-46.3 fL RDW Coefficient of Variation 12.5 11.5-14.5 % Platelet Count 205 130-400 K/uL Mean Platelet Volume 9.3 7.4-10.4 fL Sodium Level 140 136-145 mmol/L Potassium Level 4.6 3.5-5.1 mmol/L Chloride Level 107 98-107 mmol/L Carbon Dioxide Level 28 21-32 mmol/L Anion Gap 6.0 3-11 mmol/L Blood Urea Nitrogen 11 7-18 mg/dl Creatinine 0.74 0.60-1.20 mg/dl Est Creatinine Clear Calc Drug Dose 102.1 ml/min Estimated GFR () 110.3 Estimated GFR (Non- 95.1 BUN/Creatinine Ratio 15.1 10-20 Random Glucose 167 70-99 mg/dl Calcium Level 8.5 8.5-10.1 mg/dl Test 06/17/17 08:11 Range/Units Bedside Glucose 192 70-90 mg/dl
[2017-06-17] MEDS ORDERED: FLM4 PO (12:27)
[2017-06-17] MEDS ORDERED: PHEN-1043 PO (12:27)
[2017-06-17] MEDS ORDERED: OXYC-57 PO (12:27)
[2017-06-17] MEDS ORDERED: CPR500 PO (12:27)
--- NOTE | 2017-06-17 12:31 | Discharge Instructions ---
Discharge Instructions Date of Service Jun 17, 2017. Admission Reason for Admission: Hematuria, Pyelitis, Rifht Flank Pain Discharge Discharge Diagnosis / Problem: Bilateral Hydronephrosis ,R>L with,bilateral Ureteral dilation Discharge Goals Goal(s): Prevent Disease Progression Activity Recommendations Activity Limitations: resume your previous activity . Instructions / Follow-Up Instructions / Follow-Up Dr Trejo on 06/23/17 at 12:45 PM.Please make an appointment with Dr Briseno ( Urology) in 2 weeks Current Hospital Diet Patient's current hospital diet: Diabetes Type 2 Diet Discharge Diet Recommended Diet: Diabetes Type 2 Diet Procedures Procedures Performed: Cystoscopy bilateral retrograde pyelograms bilateral ureteroscopy and placement of indwelling double-J right ureteral stent Pending Studies Studies pending at discharge: no Medical Emergencies . Who to Call and When: Medical Emergencies: If at any time you feel your situation is an emergency, please call 911 immediately. . Non-Emergent Contact Non-Emergency issues call your: Primary Care Provider . Past History Medical & Surgical History: (1) Hematuria (2) Right flank pain (3) HTN (hypertension) (4) Hypothyroid (5) Seizure disorder (6) Diabetes . "Provider Documentation" section prepared by Mónica Edmonds. . VTE Core Measure Inpt VTE Proph given/why not?: SCD's
[2017-06-17] MEDS ORDERED: CIPROFLOXACIN 500 MG TAB PO STA (12:35)
[2017-06-17 13:05] VITALS: BP 162/89; PULSE 64; TEMP 36.7; O2SAT 95
--- NOTE | 2017-06-17 16:39 | Discharge Summary ---
Discharge Summary Date of Service Jun 17, 2017. Discharge Summary Admission Date: Jun 13, 2017 at 08:38 Discharge Date: Jun 17, 2017 Discharge Disposition: Home Principal Diagnosis: Bilateral Hydronephrosis ,R>L with,bilateral Ureteral dilation Secondary Diagnoses/Problems: Please see H&P and Hospital Progress note Consultations: Urology Medication Reconciliation New Medications: Ciprofloxacin (Ciprofloxacin HCl) 500 Mg Tab 500 MG PO BID, #6 Oxycodone/Acetaminophen 5MG/325MG (Percocet 5MG/325MG) Tab 1 TABLET PO Q4H PRN for Pain, #20 TAB Phenazopyridine HCl (Phenazopyridine HCl) 200 Mg Tab 200 MG PO TID for 3 Days, #9 TAB Tamsulosin HCl (Tamsulosin HCl) 0.4 Mg Cap 0.4 MG PO HS for 30 Days, #30 CAP Continued Medications: Aspirin (Aspirin Ec) 81 Mg Tab 81 MG PO Q2D Cholecalciferol (Vitamin D 1000 Unit) 1,000 Unit Cap 1000 INTER.UNIT PO DAILY, CAP Clonazepam (Klonopin) 0.5 Mg Tab 0.5 MG PO TID, TAB Escitalopram Oxalate (Lexapro) 20 Mg Tab 20 MG PO DAILY, TAB Furosemide (Lasix) 20 Mg Tab 20 MG PO DAILY, TAB Insulin Aspart (Novolog Flexpen) 100 Units/Ml Inj 45 UNITS SQ DAILY PRN for SLIDING SCALE Insulin Degludec (Tresiba Flextouch) 100 Unit/Ml Inj 32 UNITS SC QAM Lamotrigine (Lamotrigine) 100 Mg Tab 100 MG PO BID for 30 Days, #60 TAB Levothyroxine Sodium (Synthroid) 200 Mcg Tab 200 MCG PO DAILY, TAB Liraglutide (Victoza) 18 Mg/3 Ml Inj 1.2 ML INJ DAILY Lisinopril (Prinivil) 10 Mg Tab 10 MG PO DAILY, TAB Phenytoin (Dilantin Infatabs) 50 Mg Chew 50 MG PO HS TAKE IN ADDITION TO 200 MG-PM DOSE. Phenytoin Sodium (Dilantin) 100 Mg Cap 200 MG PO BID for 30 Days, #90 CAP 2 Refills Simvastatin (Zocor) 10 Mg Tab 10 MG PO QPM, TAB Admission Information HPI (per Admitting provider): Patient is a 51 yo female who presents to the hospital for complaints of right sided flank pain and right abdominal and groin pain that initially started as a dull back ache about 2-3 days ago. She states yesterday it progressed to having pain in her abdomen and groin as well as noticing blood on the tissue when she wiped after urination. She also states she felt some resistance to urinating and dysuria yesterday. She has noticed some relief in the dysuria and urinary hesitancy today however since being in the ER and receiving analgesia. She denies any complaints of fever, chills, sweats, rigors. She denies any recent illness or antibiotic use. She denies any recent trauma or falls. No cough, CP, SOB, palpitations, N/V/D. She denies any prior history of similar symptoms. Her states a few days ago he was concerned that when he came home from work the patient was confused and had low blood glucose, but it was difficult to reverse and he was concerned because of her history seizures and also the possibility of infection as she has had similar symptoms in the distant past. Past Medical/Surgical History PMHx: DM Endometriosis Epileptic seizure HTN Hypothyroidism since age 14 Osteoarthrosis Surgical Hx: Total hysterectomy Family History Cancer Diabetes mellitus Seizures Social History Smoking Status: Former Smoker (Quit in October 2016; smoked 1.5 ppd prior to that) Smokeless Tobacco Use: No Alcohol Use: occasionally Drug Use: none Marital Status: Housing status: lives with family Occupational Status: employed Multi-Drug Resistant Organisms History of MDRO: No Allergies Coded Allergies: No Known Allergies (Unverified , 06/13/17) Home Medications Scheduled Aspirin (Aspirin Ec), 81 MG PO Q2D Cholecalciferol (Vitamin D 1000 Unit), 1,000 INTER.UNIT PO DAILY Clonazepam (Klonopin), 0.5 MG PO TID Escitalopram Oxalate (Lexapro), 20 MG PO DAILY Furosemide (Lasix), 20 MG PO DAILY Insulin Degludec (Tresiba Flextouch), 32 UNITS SC QAM Lamotrigine (Lamotrigine), 100 MG PO BID Levothyroxine Sodium (Synthroid), 200 MCG PO DAILY Liraglutide (Victoza), 1.2 ML INJ DAILY Lisinopril (Prinivil), 10 MG PO DAILY Phenytoin (Dilantin Infatabs), 50 MG PO HS Phenytoin Sodium (Dilantin), 200 MG PO BID Simvastatin (Zocor), 10 MG PO QPM Scheduled PRN Insulin Aspart (Novolog Flexpen), 45 UNITS SQ DAILY PRN for SLIDING SCALE Review of Systems A full 10 systems were reviewed; please see the HPI for the pertinent positives and negatives. Physical Exam Vital Signs Date Time Temp Pulse Resp B/P (MAP) Pulse Ox O2 Delivery O2 Flow Rate FiO2 06/13/17 09:37 73 18 135/72 97 06/13/17 07:27 74 18 121/65 99 Room Air 06/13/17 05:26 36.7 85 18 133/84 97 Room Air General Appearance: WD/WN, + mild distress Head: normocephalic, atraumatic Eyes: PERRL, EOMI, sclerae normal, + pertinent finding (conjunctivae clear) ENT: hearing grossly normal, pharynx normal Neck: supple, no adenopathy, thyroid normal, no JVD, no carotid bruits, trachea midline Respiratory/Chest: chest non-tender, lungs clear, normal breath sounds, no respiratory distress Cardiovascular: regular rate, rhythm, no edema, no gallop, no JVD, no murmur Abdomen/GI: normal bowel sounds, non tender, soft, no organomegaly (no hepatosplenomegaly), + tenderness (Right sided ) Back: no muscle spasm, + right CVA tenderness Extremities/Musculoskelatal: no calf tenderness, normal capillary refill, no pedal edema Neurologic/Psych: no motor/sensory deficits, alert, normal mood/affect, oriented x 3 Skin: normal color, warm/dry, no rash Diagnostics Laboratory Results Results Past 24 Hours Test 06/13/17 05:55 06/13/17 06:00 Range/Units White Blood Count 9.57 4.8-10.8 K/uL Red Blood Count 4.47 4.2-5.4 M/uL Hemoglobin 13.3 12.0-16.0 g/dL Hematocrit 39.3 37-47 % Mean Corpuscular Volume 87.9 80-100 fL Mean Corpuscular Hemoglobin 29.8 25-34 pg Mean Corpuscular Hemoglobin Concent 33.8 32-36 g/dl Platelet Count 202 130-400 K/uL Mean Platelet Volume 9.7 7.4-10.4 fL Neutrophils (%) (Auto) 84.0 % Lymphocytes (%) (Auto) 10.0 % Monocytes (%) (Auto) 5.3 % Eosinophils (%) (Auto) 0.4 % Basophils (%) (Auto) 0.2 % Neutrophils # (Auto) 8.03 1.4-6.5 K/uL Lymphocytes # (Auto) 0.96 1.2-3.4 K/uL Monocytes # (Auto) 0.51 0.11-0.59 K/uL Eosinophils # (Auto) 0.04 0-0.5 K/uL Basophils # (Auto) 0.02 0-0.2 K/uL RDW Standard Deviation 40.7 36.4-46.3 fL RDW Coefficient of Variation 12.6 11.5-14.5 % Immature Granulocyte % (Auto) 0.1 % Immature Granulocyte # (Auto) 0.01 0.00-0.02 K/uL Sodium Level 141 136-145 mmol/L Potassium Level 4.0 3.5-5.1 mmol/L Chloride Level 106 98-107 mmol/L Carbon Dioxide Level 29 21-32 mmol/L Anion Gap 6.0 3-11 mmol/L Blood Urea Nitrogen 9 7-18 mg/dl Creatinine 0.67 0.60-1.20 mg/dl Est Creatinine Clear Calc Drug Dose 111.5 ml/min Estimated GFR () 119.6 Estimated GFR (Non- 103.2 BUN/Creatinine Ratio 14.1 10-20 Random Glucose 66 70-99 mg/dl Calcium Level 8.5 8.5-10.1 mg/dl Urine Color RED Urine Appearance TURBID CLEAR Urine pH 6.5 4.5-7.5 Urine Specific [place] 1.020 1.000-1.030 Urine Protein 3+ NEG Urine Glucose (UA) NEG NEG Urine Ketones NEG NEG Urine Occult Blood 3+ NEG Urine Nitrite NEG NEG Urine Bilirubin NEG NEG Urine Urobilinogen NEG NEG Urine Leukocyte Esterase SMALL NEG Urine RBC >30 0-4 /hpf Urine WBC 10-30 0-5 /hpf Urine Epithelial Cells 5-10 0-5 /lpf Urine Bacteria NEG NEG Impression Assessment and Plan HEMATURIA/FLANK PAIN: -CT Abd/pelvis does not show a stone but question if patient may have passed a stone -CT findings: "2. Marked right renal atrophy with compensatory hypertrophy of the left kidney. Mild right ureteral dilatation, wall thickening and periureteral infiltration. The findings favor an infectious process such as pyelitis, possibly on the basis of reflux. However, a neoplastic process with urothelial lesion could appear similar. Findings could be correlated with urinalysis and urine cytology. Nonspecific moderate bladder wall thickening. Urology consultation might be considered. 3. No left hydronephrosis. Marked dilatation of the distal left ureter which is age-indeterminate. The etiology for the dilatation is unclear on this exam. Differential considerations include a distal left ureteral stricture, urothelial lesion or reflux." -Consult to Urology test consultant placed -started on empiric abx in ER, continue with ceftriaxone daily -obtain urine culture -hydrate with IV fluids -pain control PRN -will keep NPO for now DIABETES: -HbA1c from 1 month ago was 7.4% -patient follows with Endocrine as outpatient -will consult [facility] pharmacy for their assistance in restarting insulin and will need to be adjusted when patient is taking in PO SEIZURE DISORDER: -continue on home meds -has been well controlled with no recent seizures -follows with [facility] Neurology HTN: -stable -continue home meds HYPOTHYROIDISM: -continue synthroid Level of Care Med/Surg VTE Prophylaxis VTE Risk Assessment Done? Y/N: Yes Risk Level: Moderate <Electronically signed by Chantelle Gibson D.O.> Signed: 06/13/17 6331 Physical Exam (per Admitting): General Appearance: WD/WN, + mild distress Head: normocephalic, atraumatic Eyes: PERRL, EOMI, sclerae normal, + pertinent finding (conjunctivae clear) ENT: hearing grossly normal, pharynx normal Neck: supple, no adenopathy, thyroid normal, no JVD, no carotid bruits, trachea midline Respiratory/Chest: chest non-tender, lungs clear, normal breath sounds, no respiratory distress Cardiovascular: regular rate, rhythm, no edema, no gallop, no JVD, no murmur Abdomen/GI: normal bowel sounds, non tender, soft, no organomegaly (no hepatosplenomegaly), + tenderness (Right sided ) Back: no muscle spasm, + right CVA tenderness Extremities/Musculoskelatal: no calf tenderness, normal capillary refill, no pedal edema Neurologic/Psych: no motor/sensory deficits, alert, normal mood/affect, oriented x 3 Skin: normal color, warm/dry, no rash Hospital Course HEMATURIA/FLANK PAIN: Bilateral Hydronephrosis ,R.L with ,bilateral Ureteral dilation and Thickened Urinary Bladder wall Appreciate Urology input POD #1 s/p cysto with right ureteral stent placement CT of the Abdomen and Pelvis 1. There is markedly asymmetric cortical atrophy of the right kidney as comparer to the left. 2. The kidneys enhance symmetrically. There is slightly delayed excretion from the right kidney as compared to left. 3. There is mild bilateral hydronephrosis, right greater than left. The ureters are significantly dilated to the level of the bladder. The degree of distention suggests chronicity. 4. No enhancing renal cortical mass is seen. 5. There is a 1.1 cm filling defect identified in the right lower pole collecting system. This could represent a urothelial lesion/neoplasm versus debris/blood clot. 6. No additional filling defects are clearly identified within the left renal collecting system or along the course of the ureters. There is no contrast present within the right ureter or the distal left ureter which degrades assessment. 7. Urothelial thickening is seen in both ureters with associated periureteric stranding. The appearance suggests infection/inflammation. Correlation with clinical findings and urinalysis will be required. 8. Although decompressed, the bladder wall appears markedly thickened and there is pericystic inflammation. Correlate clinically and with urinalysis for evidence of cystitis. A urothelial lesion in the bladder would be impossible to exclude. If further assessment is desired then cystoscopy would be appropriate. 9. Large pleural calcifications and scarring are seen in the right lung base. This likely represents the sequelae of a remote insult. Correlation with the medical history will be required. 10. Hepatomegaly and hepatic steatosis. -started on empiric abx in ER, continue with ceftriaxone daily -urine culture grew 3 different organisms, was likely contaminated -pain control PRN -clinically a lot better Wants to go home Will discharge her today : on Pyridium, Flomax, 3 days of Cipro, and oral pain medication. DIABETES: -HbA1c from 1 month ago was 7.4% -patient follows with Endocrine as outpatient -will consult [facility]cemic pharmacy for their assistance in restarting insulin and will need to be adjusted when patient is taking in PO -BSG were labile overnight, patient is concerned and willing to bring her own insulin if it would help SEIZURE DISORDER: -continue on home meds -has been well controlled with no recent seizures -follows with [facility] Neurology -no acute issue HTN: -stable -continue home meds HYPOTHYROIDISM: -continue Synthroid DISPOSITION Likely discharge this afternoon OP appointment with Dr. Briseno in 2 weeks. Total time spent on discharge = 35 minutes This includes examination of the patient, discharge planning, medication reconciliation, and communication with other providers. Discharge Instructions Date of Service Jun 17, 2017. Admission Reason for Admission: Hematuria, Pyelitis, Rifht Flank Pain Discharge Discharge Diagnosis / Problem: Bilateral Hydronephrosis ,R>L with,bilateral Ureteral dilation Discharge Goals Goal(s): Prevent Disease Progression Activity Recommendations Activity Limitations: resume your previous activity . Instructions / Follow-Up Instructions / Follow-Up Dr Trejo on 06/23/17 at 12:45 PM.Please make an appointment with Dr Briseno ( Urology) in 2 weeks Current Hospital Diet Patient's current hospital diet: Diabetes Type 2 Diet Discharge Diet Recommended Diet: Diabetes Type 2 Diet Procedures Procedures Performed: Cystoscopy bilateral retrograde pyelograms bilateral ureteroscopy and placement of indwelling double-J right ureteral stent Pending Studies Studies pending at discharge: no Medical Emergencies . Who to Call and When: Medical Emergencies: If at any time you feel your situation is an emergency, please call 911 immediately. . Non-Emergent Contact Non-Emergency issues call your: Primary Care Provider . Past History Medical & Surgical History: (1) Hematuria (2) Right flank pain (3) HTN (hypertension) (4) Hypothyroid (5) Seizure disorder (6) Diabetes . "Provider Documentation" section prepared by Mónica Edmonds. . VTE Core Measure Inpt VTE Proph given/why not?: SCD's <Electronically signed by Mónica Edmonds M.D.> Additional Copies To Brendan Trejo M.D. (MEDICAL)
[2017-06-17] MEDS ORDERED: TAMSULOSIN HCL 0.4 MG CAP PO SCH (21:00)
== END 2017-06-17 13:20 | disposition home or self-care (01) | DRG 694 ==
LOC: C.EDB 05:25 → INTOOBSV 08:38 → C.MSW 08:38 → OBSVTOIN 08:38 → ENRESERV 09:25
PROVIDERS: ADMIT Internal Medicine; ATTEND Internal Medicine
PROC: 0T768DZ Dilation of Right Ureter with Intraluminal Device, Via Natural or Artificial Opening Endoscopic (ICD-10-PCS; principal; 2017-06-16 14:15)
PROC: BT14ZZZ Fluoroscopy of Kidneys, Ureters and Bladder (ICD-10-PCS; principal; 2017-06-16 14:15)
DX: N13.30 Unspecified hydronephrosis (principal); R31.0 Gross hematuria; I10 Essential (primary) hypertension; E03.9 Hypothyroidism, unspecified; G40.909 Epilepsy, unspecified, not intractable, without status epilepticus; E11.9 Type 2 diabetes mellitus without complications; Z79.4 Long term (current) use of insulin; Z87.891 Personal history of nicotine dependence

== ENCOUNTER → 2017-07-25 | Outpatient (CLI) | payer BC, OTHER ==
[~2017-07-25] MED LIST changes: +CPR500 PO; -DIVA500T3 PO; +FLM4 PO; -INSDGI SC; +INSU1INJ33 SC; +LAMO1TAB21 PO; -LEVO25TA PO; +LIRA18IN INJ; +OXYC-57 PO; +PHEN-1043 PO
--- NOTE | 2017-07-25 14:20 | DIAGNOSTIC IMAGING REPORT ---
R KNEE 4 OR MORE VIEWS CLINICAL HISTORY: RIGHT KNEE ARTHRALGIA. COMPARISON: None FINDINGS: Alignment of the right knee is anatomic. There is no fracture or joint effusion. Joint spaces are preserved. There is minimal osteophytosis of the right knee. IMPRESSION: 1. No acute fracture or joint effusion of the right knee. 2. Preserved joint spaces with minimal osteophytosis of the right knee. Electronically signed by: Rufino Quiles M.D. 07/25/2017 2:19 PM Dictated Date/Time: 07/25/2017 2:17 PM
--- NOTE | 2017-07-25 14:22 | DIAGNOSTIC IMAGING REPORT ---
L KNEE 4 VIEWS CLINICAL HISTORY: Left knee pain COMPARISON: None. DISCUSSION: No acute fractures are visualized. There are no erosive or destructive changes. There is mild lateral patellar tilt. There is no radiographic evidence of a joint effusion. There is mild osteopenia. An ill-defined lucency within the proximal tibial metaphysis, likely represents focal osteoporotic change, as a similar finding is present on the contralateral knee.. IMPRESSION: 1. No acute fractures 2. Mild lateral patellar tilt 3. Mild osteoporotic change. Electronically signed by: Christopher Michelle M.D. 07/25/2017 2:20 PM Dictated Date/Time: 07/25/2017 2:18 PM
== END | disposition home or self-care (01) ==
LOC: C.RAD 13:52
PROVIDERS: ATTEND Physician Assistant
DX: M25.561 Pain in right knee (principal); M25.562 Pain in left knee

== ENCOUNTER → 2018-01-22 | Outpatient (CLI) | payer BC, OTHER ==
[~2018-01-22] MED LIST changes: +GADAVIST IV PRN; -OXYC-57 PO
[2018-01-22 11:26] LABS: BLOOD UREA NITROGEN 15 mg/dl (7-18); CREATININE 0.81 mg/dl (0.60-1.20)
--- NOTE | 2018-01-22 12:19 | DIAGNOSTIC IMAGING REPORT ---
MRI OF THE BRAIN WITHOUT AND WITH IV CONTRAST SEIZURE PROTOCOL CLINICAL HISTORY: Headache. Seizure disorder. COMPARISON STUDY: MRIs of the brain December 24, 2007 and May 17, 2015. TECHNIQUE: Utilizing a 1.5 Lottie magnet and dedicated coil, multiplanar, multiecho imaging of the brain was performed pre and postcontrast administration. IV administration of 10 mL of Gadavist contrast was uneventful. Thin cut coronal T2 imaging was performed according to seizure protocol. FINDINGS: There are no foci of restricted diffusion. No acute intracranial hemorrhage, midline shift or mass effect is present. Ventricular system is stable. Basilar cisterns are patent. There are no extra-axial collections. Flow-voids for the major intracranial vessels are present. There is no intracranial mass. Note is again made of a developmental venous anomaly within the right basal ganglia which is unchanged since exam of May 17, 2015. Mild periventricular T2 hyperintense signal is unchanged. No new foci of signal abnormality are present. Calvarial signal is normal. Orbits are unremarkable. There is no MRI evidence of mesial temporal sclerosis. IMPRESSION: 1. No acute intracranial findings. No change since exam of May 17, 2015. 2. Stable developmental venous anomaly within the right basal ganglia. Electronically signed by: Rufino Quiles M.D. 01/22/2018 12:18 PM Dictated Date/Time: 01/22/2018 12:09 PM
== END | disposition home or self-care (01) ==
LOC: C.MRI 10:33
PROVIDERS: ATTEND Psychiatry & Neurology Neurology
DX: G40.909 Epilepsy, unspecified, not intractable, without status epilepticus (principal); R51 Headache

== ENCOUNTER 2025-03-31 06:26 | Inpatient (IN) ==
[2025-03-31] MEDS: SODIUM CHLORIDE 0.9% 1,000 ML IV ONE ×2 (07:09→08:55)
[2025-03-31 07:28] LABS: Appearance Urine Clear (Clear); Bacteria Urine Automated None Seen (None Seen); Cast Urine Automated 0-2 /lpf (0-2); Epithelial Cell Urine Auto 0-2 /hpf (0-2); Glucose Urine UA 3+ (Negative); RBC Urine Automated 0-2 /hpf (0-2)
[2025-03-31 07:30] LABS: Base Excess VBG -4.2 mEq/L; HCO3 VBG 21 mmol/L; Oxygen Saturation VBG < 60.0 %; PCO2 VBG 38 mmHg (38-50); PO2 VBG 33 mmHg; pH VBG 7.35 (7.36-7.41)
[2025-03-31 07:39] LABS: Alanine Aminotransferase 16.0 U/L (7-52); Alkaline Phosphatase 133.0 U/L (34-104); Anion Gap 14.0 (3-11); Bilirubin,Total 0.7 mg/dl (0.2-1.0); Blood Urea Nitrogen 42.0 mg/dl (6-23); Calcium 9.7 mg/dl (8.6-10.3); Carbon Dioxide 23.0 mmol/L (21-32); Chloride 95.0 mmol/L (98-107); Creatinine Clr Calc Pharmacy 39.4 ml/min; Glucose 596.0 mg/dl (70-99(Fasting)); Lipase 32.0 U/L (11-82); Potassium 5.6 mmol/L (3.5-5.1); Sodium 132.0 mmol/L (136-145); Total Protein 7.4 gm/dl (6.0-8.3)
--- NOTE | 2025-03-31 07:45 | Emergency Department Note ---
Impression & Plan DKA (diabetic ketoacidosis), Hyperglycemia ED Provider Note NAME: MEGHA DUFFY AGE: 59 SEX: F : 1965 ARRIVES VIA: Walk-In INFORMANT: Patient, ED PROVIDER(S): Janeth Coates MD CHIEF COMPLAINT: Hyperglycemia HPI: This is a 59-year-old female present for hyperglycemia. Patient states that she has high blood sugars for over 1 week. She notes that she previously had low blood sugars and is scared about her low blood sugar. She does take Lantus as well as Ozempic. She notes that she has had some nausea and vomiting. Some slight chest pain. No diarrhea. No shortness of breath. No confusion as per the . ROS: See above HPI for pertinent positives & negatives. A total of 10 systems reviewed and were otherwise negative. PAST MEDICAL HISTORY: See Below PAST SURGICAL HISTORY: See Below FAMILY HISTORY: See Below SOCIAL HISTORY: See Below HOME MEDICATIONS: See Below ALLERGIES: See Below VITALS: See Below PHYSICAL EXAMINATION: General: resting comfortably in no acute distress Head: Normocephalic and atraumatic Eyes: Normal inspection, extraocular muscles intact Ear, nose, throat: Normal external exam Neck: Normal range of motion Respiratory: lungs clear to auscultation bilaterally Cardiovascular: Regular rate/rhythm, no murmur GI: soft, nontender, no guarding or rebound Extremities: nontender, moves all extremities Neuro: The patient awake and alert, appropriately conversive, no focal deficits, symmetric faces Skin: Warm, dry, and intact MEDICAL DECISION MAKING: This is a 59-year-old female present for hypoglycemia. Will do screening blood work assess for DKA. Will EKG and troponin as well to assess for ACS. -No leukocytosis or anemia. Significant hyperglycemia to 596. Minimal anion gap at 14 noted. There was significant hyperkalemia to 5.6. Urinalysis shows mild ketones. -VBG reassuring with pH of 7.35 -Workup thus far shows mild form of DKA. Will give saline, IV insulin bolus and further resuscitation. - Second glucose downtrending into the 400s. -Will admit the patient at this time for DKA. Care discussed with [facility] service for admission. - Patient reevaluated, appearing improved. Family discussed and comfortable with admission. Differential diagnosis: DKA, hyperglycemia, HHS, ACS Independent History obtained from: Diagnostics interpreted by me: ECG: ECG independently interpreted by me with sinus tachycardia rate of 111, normal NE, normal QRS, normal QTc, no ST segment elevations consistent with STEMI criteria, inferior T wave inversion Cardiac Monitoring: An order was placed for continuous cardiac monitoring. The monitor shows a rate of 90 with sinus rhythm. Critical Care Note: I have personally spent 40 minutes of critical care time in the direct management of this patient. This includes bedside care, interpretation of diagnostic studies, and testing, discussion with consultants, patient, and family members, and other required patient management activities. This 40 minutes is in excess of all separately billable procedures. Past Med/Surg History Problem List (Updated 03/31/25 @ 14:37 by Janeth Coates MD) Hyperglycemia (Acute) DKA (diabetic ketoacidosis) (Acute) Chest pain JESSA (acute kidney injury) DM type 1 (diabetes mellitus, type 1) DKA (diabetic ketoacidosis) Albuminuria Chronic kidney disease Controlled type 1 diabetes mellitus, with long-term current use of insulin Obesity Cerebral vascular malformation Tremor Seizure disorder Hanane's thyroiditis Dyslipidemia Vitamin D deficiency Hypothyroidism Hypertension Depression Anxiety Medical History (Updated 03/31/25 @ 14:37 by Janeth Coates MD) CKD stage G3b/A2, GFR 30-44 and albumin creatinine ratio 30-299 mg/g Uncontrolled type 1 diabetes mellitus, with long-term current use of insulin Arthritis Kidney stones Seizure ON MEDS NONE FOR 10+ YRS F/U DR LARIOS Sleep apnea NO DEVICE Surgical History Hx of right cataract extraction History of colonoscopy History of arthroscopy RIGHT KNEE History of hysterectomy TOTAL History of cystoscopy WITH STENT Social History Smoking Status: Never smoker Cigarettes Per Day: 2 YRS AGO; Second Hand Exposure: No; Do You Dip or Chew Tobacco: No; Hx Alcohol Use: Yes Alcohol type: beer Hx Substance Use: No Preferred Language: Sammarinese Communication Ability: Effective Visual Impairment: No Limitations Hearing Ability: Normal Retrimmer Required: No Beliefs That Will Affect Care: None marital status: Current Living Situation: Spouse and Family current occupational status: employed current occupation: Works at [employer] in Housekeeping How many Children do You have: 2 Feels Safe at Home: Yes Diet: regular caffeine: Yes (2-3 coffees daily) Seatbelt Use: always Do you think of yourself as: straight/heterosexual Gender Identity: Female Assistive Devices: Denture - Upper and Glasses Allergies Allergies Allergy/AdvReac Type Severity Reaction Status Date / Time No Known Allergies Allergy Verified 02/07/25 15:13 Home Meds Home Medications Medication Instructions Recorded Confirmed cholecalciferol (vitamin D3) 25 2,000 units PO QAM 08/12/19 03/31/25 mcg (1,000 unit) capsule (Vitamin D3) famotidine 20 mg tablet 20 mg PO BID 06/25/23 03/31/25 insulin aspart U-100 100 unit/mL 1 sliding scale dose subcut 11/28/24 03/31/25 (3 mL) subcutaneous pen (Novolog USEASDIRECTD FlexPen U-100 Insulin aspart) insulin glargine 100 unit/mL (3 35 unit subcut QAM 11/28/24 03/31/25 mL) subcutaneous pen (Lantus Solostar U-100 Insulin) levothyroxine 137 mcg tablet 137 mcg PO DAILY 11/28/24 03/31/25 metoprolol tartrate 25 mg tablet 12.5 mg PO BID 11/28/24 03/31/25 omeprazole 20 mg capsule,delayed 20 mg PO DAILY 03/31/25 03/31/25 release Previous Rx's Medication Instructions Recorded pen needle, diabetic 31 gauge x #600 ea 10/12/21 1/" (Lite Touch Insulin Pen [place]) losartan 100 mg tablet 100 mg PO QAM #90 tabs 06/30/24 FreeStyle Diony 2 Sensor (flash #2 ea 07/23/24 glucose sensor) blood-glucose sensor (FreeStyle #2 ea 08/11/24 Diony 3 Sensor device) chlorthalidone 25 mg tablet 25 mg PO DAILY #90 tabs 09/09/24 lamotrigine 200 mg tablet 200 mg PO BID 90 days #180 tabs 10/12/24 simvastatin 20 mg tablet 20 mg PO QPM #90 tabs 11/26/24 spironolactone 50 mg tablet 100 mg (2 x 50 mg) PO DAILY #60 12/20/24 (Aldactone) tabs blood sugar diagnostic (OneTouch #400 ea 03/11/25 Verio test strips) empagliflozin 25 mg tablet 25 mg PO DAILY #30 tabs 03/14/25 (Jardiance) semaglutide 1 mg/dose (4 mg/3 mL) 1 mg (0.75 mL) subcut .once a week 03/24/25 subcutaneous pen injector (Ozempic) #3 mL Results & Data (ED) Vital Signs Vital Signs - 24 hr 03/31/25 06:29 03/31/25 06:43 03/31/25 06:48 Temperature 37.1 C Temperature Source Temporal Artery Scan Pulse Rate 99 H 101 H 101 H Pulse Rate from SpO2 Sensor 101 H Respiratory Rate 17 17 Blood Pressure 125/74 Blood Pressure Mean 91 Pulse Oximetry 100 100 Oxygen Delivery Method Room Air Sepsis Recent Fever Within 48 Hours No Sepsis New/Unexplained Change in Mental Status No Sepsis Action Taken by Nursing No Action Required 03/31/25 06:51 03/31/25 07:00 03/31/25 07:00 Temperature Temperature Source Pulse Rate 100 H Pulse Rate from SpO2 Sensor 100 H Respiratory Rate 15 Blood Pressure 116/63 116/63 Blood Pressure Mean 87 87 Pulse Oximetry 99 Oxygen Delivery Method Sepsis Recent Fever Within 48 Hours Sepsis New/Unexplained Change in Mental Status Sepsis Action Taken by Nursing 03/31/25 07:00 03/31/25 07:18 03/31/25 07:21 Temperature Temperature Source Pulse Rate 99 H 101 H 98 H Pulse Rate from SpO2 Sensor 102 H Respiratory Rate 19 19 21 Blood Pressure Blood Pressure Mean Pulse Oximetry 100 Oxygen Delivery Method Sepsis Recent Fever Within 48 Hours Sepsis New/Unexplained Change in Mental Status Sepsis Action Taken by Nursing 03/31/25 07:45 03/31/25 07:54 03/31/25 08:03 Temperature Temperature Source Pulse Rate 99 H 98 H 95 H Pulse Rate from SpO2 Sensor Respiratory Rate 13 12 Blood Pressure Blood Pressure Mean Pulse Oximetry Oxygen Delivery Method Sepsis Recent Fever Within 48 Hours Sepsis New/Unexplained Change in Mental Status Sepsis Action Taken by Nursing 03/31/25 08:14 03/31/25 08:14 03/31/25 08:15 Temperature Temperature Source Pulse Rate 97 H Pulse Rate from SpO2 Sensor Respiratory Rate Blood Pressure 103/54 L 103/54 L Blood Pressure Mean 66 66 Pulse Oximetry Oxygen Delivery Method Sepsis Recent Fever Within 48 Hours Sepsis New/Unexplained Change in Mental Status Sepsis Action Taken by Nursing 03/31/25 08:24 03/31/25 08:27 03/31/25 08:30 Temperature Temperature Source Pulse Rate 101 H 100 H Pulse Rate from SpO2 Sensor Respiratory Rate 14 21 Blood Pressure 105/62 Blood Pressure Mean 79 Pulse Oximetry Oxygen Delivery Method Sepsis Recent Fever Within 48 Hours Sepsis New/Unexplained Change in Mental Status Sepsis Action Taken by Nursing 03/31/25 08:30 03/31/25 08:39 03/31/25 08:51 Temperature Temperature Source Pulse Rate 101 H 103 H Pulse Rate from SpO2 Sensor Respiratory Rate 19 14 Blood Pressure 105/62 Blood Pressure Mean 79 Pulse Oximetry Oxygen Delivery Method Sepsis Recent Fever Within 48 Hours Sepsis New/Unexplained Change in Mental Status Sepsis Action Taken by Nursing 03/31/25 09:00 03/31/25 09:00 03/31/25 09:00 Temperature Temperature Source Pulse Rate Pulse Rate from SpO2 Sensor Respiratory Rate Blood Pressure 116/68 116/68 116/68 Blood Pressure Mean 86 86 86 Pulse Oximetry Oxygen Delivery Method Sepsis Recent Fever Within 48 Hours Sepsis New/Unexplained Change in Mental Status Sepsis Action Taken by Nursing 03/31/25 09:03 Temperature Temperature Source Pulse Rate 92 H Pulse Rate from SpO2 Sensor Respiratory Rate 18 Blood Pressure Blood Pressure Mean Pulse Oximetry Oxygen Delivery Method Sepsis Recent Fever Within 48 Hours Sepsis New/Unexplained Change in Mental Status Sepsis Action Taken by Nursing Laboratory Data 03/31/25 06:45 03/31/25 09:20 Lab Results 03/31/25 03/31/25 03/31/25 Range/Units 06:40 06:45 06:47 WBC 8.70 (4.8-10.8) K/ul RBC 4.36 (4.20-5.40) M/uL Hgb 12.9 (12.0-16.0) g/dl POC Hgb (12.0-16.0) g/dl Hct 39.2 (37.0-47.0) % POC Hct (37-47) % MCV 89.9 (80.0-100.0) fL MCH 29.6 (25.0-34.0) pg MCHC 32.9 (32.0-36.0) g/dL RDW Std Deviation 41.2 (36.4-46.3) fL RDW Coeff of Syeda 12.6 (11.5-14.5) % Plt Count 309 (130-400) K/uL MPV 10.6 (9.4-12.4) fL Immature Gran % (Auto) 0.2 % Neut % (Auto) 80.3 % Lymph % (Auto) 14.0 % Mckenzie % (Auto) 4.4 % Eos % (Auto) 0.6 % Baso % (Auto) 0.5 % Neut # (Auto) 6.99 H (1.40-6.50) K/uL Lymph # (Auto) 1.22 (1.20-3.40) K/uL Mckenzie # (Auto) 0.38 (0.11-0.59) K/uL Eos # (Auto) 0.05 (0.00-0.50) K/uL Baso # (Auto) 0.04 (0.00-0.20) K/uL Immature Gran # (Auto) 0.02 (0.01-0.20) K/uL VBG pH (7.36-7.41) VBG pCO2 (38-50) mmHg VBG pO2 mmHg VBG HCO3 mmol/L VBG O2 Saturation % VBG Base Excess mEq/L POC Sodium (135-144) mmol/L Sodium 132 L (136-145) mmol/L POC Potassium (3.3-5.0) mmol/L Potassium 5.6 H (3.5-5.1) mmol/L POC Chloride (101-112) mmol/L Chloride 95 L (98-107) mmol/L Carbon Dioxide 23 (21-32) mmol/L POC Total CO2 (24-31) mmol/L Anion Gap 14 H (3-11) POC Anion Gap (16-25) mmol/L POC BUN (7-18) mg/dl BUN 42 H (6-23) mg/dl Creatinine 1.77 H (0.6-1.2) mg/dl POC Creatinine (0.6-1.3) mg/dl Est Cr Clr Drug Dosing 39.4 ml/min eGFR 33.12 BUN/Creatinine Ratio 23.7 H (10-20) Glucose 596 H* (70-99(Fasting)) mg/dl POC Glucose 551 H* (70-99) mg/dl POC Glucose (other) (70-99) mg/dl Calcium 9.7 (8.6-10.3) mg/dl POC Ioniz Calcium Diana (1.12-1.32) mmol/l Total Bilirubin 0.7 (0.2-1.0) mg/dl Direct Bilirubin 0.1 (0-0.2) mg/dl AST 20 (13-39) U/L ALT 16 (7-52) U/L Alkaline Phosphatase 133 H (34-104) U/L Troponin I High Sens 4.6 (0-14) pg/ml Total Protein 7.4 (6.0-8.3) gm/dl Albumin 4.1 (3.4-5.0) gm/dl Lipase 32 (11-82) U/L Urine Color Yellow Urine Appearance Clear (Clear) Urine pH 6.5 (4.5-7.5) Ur Specific [place] 1.026 (1.000-1.030) Urine Protein Negative (Negative) Urine Glucose (UA) 3+ H (Negative) Urine Ketones 1+ H (Negative) Urine Blood Negative (Negative) Urine Nitrite Negative (Negative) Urine Bilirubin Negative (Negative) Urine Urobilinogen Negative (Negative) Ur Leukocyte Esterase Trace H (Negative) Urine WBC (Auto) 6-10 H (0-5) /hpf Urine RBC (Auto) 0-2 (0-2) /hpf U Hyaline Cast (Auto) 0-2 (0-2) /lpf U Epithel Cells (Auto) 0-2 (0-2) /hpf Urine Bacteria (Auto) None Seen (None Seen) Urine Comment 03/31/25 03/31/25 03/31/25 Range/Units 06:49 06:53 07:17 WBC (4.8-10.8) K/ul RBC (4.20-5.40) M/uL Hgb (12.0-16.0) g/dl POC Hgb 13.6 (12.0-16.0) g/dl Hct (37.0-47.0) % POC Hct 40 (37-47) % MCV (80.0-100.0) fL MCH (25.0-34.0) pg MCHC (32.0-36.0) g/dL RDW Std Deviation (36.4-46.3) fL RDW Coeff of Syeda (11.5-14.5) % Plt Count (130-400) K/uL MPV (9.4-12.4) fL Immature Gran % (Auto) % Neut % (Auto) % Lymph % (Auto) % Mckenzie % (Auto) % Eos % (Auto) % Baso % (Auto) % Neut # (Auto) (1.40-6.50) K/uL Lymph # (Auto) (1.20-3.40) K/uL Mckenzie # (Auto) (0.11-0.59) K/uL Eos # (Auto) (0.00-0.50) K/uL Baso # (Auto) (0.00-0.20) K/uL Immature Gran # (Auto) (0.01-0.20) K/uL VBG pH 7.35 L (7.36-7.41) VBG pCO2 38 (38-50) mmHg VBG pO2 33 mmHg VBG HCO3 21 mmol/L VBG O2 Saturation < 60.0 % VBG Base Excess -4.2 mEq/L POC Sodium 131 L (135-144) mmol/L Sodium (136-145) mmol/L POC Potassium 5.2 H (3.3-5.0) mmol/L Potassium (3.5-5.1) mmol/L POC Chloride 100 L (101-112) mmol/L Chloride (98-107) mmol/L Carbon Dioxide (21-32) mmol/L POC Total CO2 22 L (24-31) mmol/L Anion Gap (3-11) POC Anion Gap 15.0 L (16-25) mmol/L POC BUN 39 H (7-18) mg/dl BUN (6-23) mg/dl Creatinine (0.6-1.2) mg/dl POC Creatinine 1.8 H (0.6-1.3) mg/dl Est Cr Clr Drug Dosing ml/min eGFR BUN/Creatinine Ratio (10-20) Glucose (70-99(Fasting)) mg/dl POC Glucose 516 H* (70-99) mg/dl POC Glucose (other) 553 H* (70-99) mg/dl Calcium (8.6-10.3) mg/dl POC Ioniz Calcium Diana 1.10 L (1.12-1.32) mmol/l Total Bilirubin (0.2-1.0) mg/dl Direct Bilirubin (0-0.2) mg/dl AST (13-39) U/L ALT (7-52) U/L Alkaline Phosphatase (34-104) U/L Troponin I High Sens (0-14) pg/ml Total Protein (6.0-8.3) gm/dl Albumin (3.4-5.0) gm/dl Lipase (11-82) U/L Urine Color Urine Appearance (Clear) Urine pH (4.5-7.5) Ur Specific [place] (1.000-1.030) Urine Protein (Negative) Urine Glucose (UA) (Negative) Urine Ketones (Negative) Urine Blood (Negative) Urine Nitrite (Negative) Urine Bilirubin (Negative) Urine Urobilinogen (Negative) Ur Leukocyte Esterase (Negative) Urine WBC (Auto) (0-5) /hpf Urine RBC (Auto) (0-2) /hpf U Hyaline Cast (Auto) (0-2) /lpf U Epithel Cells (Auto) (0-2) /hpf Urine Bacteria (Auto) (None Seen) Urine Comment 03/31/25 Range/Units 08:55 WBC (4.8-10.8) K/ul RBC (4.20-5.40) M/uL Hgb (12.0-16.0) g/dl POC Hgb (12.0-16.0) g/dl Hct (37.0-47.0) % POC Hct (37-47) % MCV (80.0-100.0) fL MCH (25.0-34.0) pg MCHC (32.0-36.0) g/dL RDW Std Deviation (36.4-46.3) fL RDW Coeff of Syeda (11.5-14.5) % Plt Count (130-400) K/uL MPV (9.4-12.4) fL Immature Gran % (Auto) % Neut % (Auto) % Lymph % (Auto) % Mckenzie % (Auto) % Eos % (Auto) % Baso % (Auto) % Neut # (Auto) (1.40-6.50) K/uL Lymph # (Auto) (1.20-3.40) K/uL Mckenzie # (Auto) (0.11-0.59) K/uL Eos # (Auto) (0.00-0.50) K/uL Baso # (Auto) (0.00-0.20) K/uL Immature Gran # (Auto) (0.01-0.20) K/uL VBG pH (7.36-7.41) VBG pCO2 (38-50) mmHg VBG pO2 mmHg VBG HCO3 mmol/L VBG O2 Saturation % VBG Base Excess mEq/L POC Sodium (135-144) mmol/L Sodium (136-145) mmol/L POC Potassium (3.3-5.0) mmol/L Potassium (3.5-5.1) mmol/L POC Chloride (101-112) mmol/L Chloride (98-107) mmol/L Carbon Dioxide (21-32) mmol/L POC Total CO2 (24-31) mmol/L Anion Gap (3-11) POC Anion Gap (16-25) mmol/L POC BUN (7-18) mg/dl BUN (6-23) mg/dl Creatinine (0.6-1.2) mg/dl POC Creatinine (0.6-1.3) mg/dl Est Cr Clr Drug Dosing ml/min eGFR BUN/Creatinine Ratio (10-20) Glucose (70-99(Fasting)) mg/dl POC Glucose 424 H* (70-99) mg/dl POC Glucose (other) (70-99) mg/dl Calcium (8.6-10.3) mg/dl POC Ioniz Calcium Diana (1.12-1.32) mmol/l Total Bilirubin (0.2-1.0) mg/dl Direct Bilirubin (0-0.2) mg/dl AST (13-39) U/L ALT (7-52) U/L Alkaline Phosphatase (34-104) U/L Troponin I High Sens (0-14) pg/ml Total Protein (6.0-8.3) gm/dl Albumin (3.4-5.0) gm/dl Lipase (11-82) U/L Urine Color Urine Appearance (Clear) Urine pH (4.5-7.5) Ur Specific [place] (1.000-1.030) Urine Protein (Negative) Urine Glucose (UA) (Negative) Urine Ketones (Negative) Urine Blood (Negative) Urine Nitrite (Negative) Urine Bilirubin (Negative) Urine Urobilinogen (Negative) Ur Leukocyte Esterase (Negative) Urine WBC (Auto) (0-5) /hpf Urine RBC (Auto) (0-2) /hpf U Hyaline Cast (Auto) (0-2) /lpf U Epithel Cells (Auto) (0-2) /hpf Urine Bacteria (Auto) (None Seen) Urine Comment Administered Medications Heparin Sodium (Porcine) (Heparin Sod 5,000 Unit/0.5 Ml Vial) 5,000 units SQ Q8 [facility] Stop: 04/30/25 13:59 Last Admin: 03/31/25 13:55 Dose: 5,000 units Documented By: ROSARIO Insulin Human Regular 250 (units/ Sodium Chloride) 250 mls @ 0 mls/hr IV .Q0M CALLIE; Protocol Stop: 04/30/25 09:14 Last Titration: 03/31/25 13:20 Dose: 0 units/hr, 0 mls/hr Documented By: ROSARIO Co-signed By: KAYDEN Titration: 03/31/25 12:02 Dose: 4 units/hr, 4 mls/hr Documented By: ANJALI Co-signed By: KE Admin: 03/31/25 10:40 Dose: 5 units/hr, 5 mls/hr Documented By: ROSARIO Co-signed By: ANJALI Potassium Chloride/Sodium Chloride (1/2 Nss + 20meq Kcl 1000ml) 20 meq in 1,000 mls @ 150 mls/hr IV .Q6H40M [facility] Stop: 04/03/25 12:29 Last Admin: 03/31/25 12:38 Dose: 150 mls/hr Documented By: KE Insulin Aspart (Insulin Aspart Per Unit Charge) 0 units SC ACHS [facility] Stop: 04/30/25 11:29 Last Admin: 03/31/25 12:51 Dose: Not Given Documented By: ROSARIO Discontinued Medications Sodium Chloride (Nss) 1,000 mls @ 999 mls/hr IV .Q1H1M ONE Stop: 03/31/25 07:38 Last Infusion: 03/31/25 08:16 Dose: Infused Documented By: Admin: 03/31/25 07:09 Dose: 999 mls/hr Documented By: ROSARIO Sodium Chloride (Nss) 1,000 mls @ 999 mls/hr IV .Q1H1M ONE Stop: 03/31/25 09:49 Last Infusion: 03/31/25 10:02 Dose: Infused Documented By: Admin: 03/31/25 08:55 Dose: 999 mls/hr Documented By: ROSARIO Parenteral Electrolytes (Plasma-Lyte A Ph 7.4) 1,000 mls @ 150 mls/hr IV .Q6H40M CALLIE Stop: 04/03/25 09:14 Last Infusion: 03/31/25 12:37 Dose: 0 mls/hr Documented By: Admin: 03/31/25 10:40 Dose: 150 mls/hr Documented By: ROSARIO Insulin Human Regular (Novolin-R Insulin Per Unit Charge) 10 units IV NOW STA Stop: 03/31/25 08:07 Last Admin: 03/31/25 08:14 Dose: 10 units Documented By: ORSARIO Co-signed By: KAT Mtz (Pending 1/2nss+20meq Kcl Ivf) 1 each N/A Q2H CALLIE Stop: 04/30/25 09:14 Last Admin: 03/31/25 12:15 Dose: 1 each Documented By: Admin: 03/31/25 10:44 Dose: Not Given Documented By: ROSARIO Banegasaneous (Dka Goal Range 150-250 Mg/Dl) 1 each N/A ONE ONE Stop: 03/31/25 09:09 Last Admin: 03/31/25 10:41 Dose: 1 each Documented By: ROSARIO Discharge Plan Visit Data Chief Complaint: Hyperglycemia Stated Complaint: [place] ED Provider: Janeth Coates Discharge Problem: DKA (diabetic ketoacidosis), Hyperglycemia Patient Disposition: Admitted As Inpatient Condition: Fair Discharge Instructions Interventions: ED Discharge Assessment Last Done: 03/31/25 11:30
[2025-03-31] MEDS: NovoLIN-R INSULIN PER UNIT CHARGE IV STA (08:14)
[2025-03-31 08:33] LABS: Hematocrit (blood only) 39.2 % (37.0-47.0); Hemoglobin 12.9 g/dl (12.0-16.0); Immature Granulocytes # (auto) 0.02 K/uL (0.01-0.20); Immature Granulocytes % (auto) 0.2 %; Mean Corpuscular Hemoglobin 29.6 pg (25.0-34.0); Mean Corpuscular Volume 89.9 fL (80.0-100.0); Platelet Count 309 K/uL (130-400); RDW Standard Deviation 41.2 fL (36.4-46.3); Red Blood Count 4.36 M/uL (4.20-5.40); White Blood Count 8.70 K/ul (4.8-10.8)
[2025-03-31] MEDS ORDERED: STAT IV Infusion **Titration per Protocol STA (09:08)
[2025-03-31] MEDS ORDERED: PHARMACY GLYCEMIC MGMT CONSULT PRN (09:08)
[2025-03-31] MEDS ORDERED: PENDING D5 1/2NS+20mEq KCL IVF SCH (09:15)
[2025-03-31 10:00] LABS: Anion Gap 11.0 (3-11); Blood Urea Nitrogen 39.0 mg/dl (6-23); Calcium 8.8 mg/dl (8.6-10.3); Carbon Dioxide 21.0 mmol/L (21-32); Chloride 105.0 mmol/L (98-107); Creatinine Clr Calc Pharmacy 40.4 ml/min; Glucose 325.0 mg/dl (70-99(Fasting)); Magnesium 2.3 mg/dl (1.7-2.4); Potassium 4.0 mmol/L (3.5-5.1); Sodium 137.0 mmol/L (136-145)
[2025-03-31] MEDS: INSULIN REGULAR 250 UNITS in SODIUM CHLORIDE 0.9% 247.5 ML IV SCH (10:40)
[2025-03-31] MEDS: PLASMA-LYTE A 1,000 ML IV SCH (10:40)
[2025-03-31] MEDS: DKA GOAL RANGE 150-250 mg/dl ONE (10:41)
[2025-03-31] MEDS: PENDING 1/2NSS+20mEq KCL IVF SCH (10:44)
[2025-03-31] MEDS ORDERED: ACETAMINOPHEN 325 MG TAB PO PRN (11:18)
--- NOTE | 2025-03-31 11:59 | History & Physical Report ---
Date of Service March 31, 2025 Assessment & Plan (1) DKA (diabetic ketoacidosis): (2) DM type 1 (diabetes mellitus, type 1): Plan: Admit to telemetry Patient presenting from home with reports of hyperglycemia. Patient reports experiencing hypoglycemia a few months ago and reports that she has been hesitant with taking insulin as prescribed to prevent further hypoglycemic episodes. Patient also started Ozempic a couple of months ago and feels as though her blood sugars have been very labile since then. Patient self reduced her Lantus from 45 units in the morning to 30 units in the morning a couple of weeks ago. Since that time, her glucose monitor has been reading high. Patient saw her outpatient remelt furnace expediter 4 days ago who suggested increasing Lantus to 35 units daily they made adjustments in NovoLog dosing. In the ED, patient was found to be in mild/early DKA with labs showing glucose 596, anion gap 14, pH of 7.35. Patient was given IVF and IV insulin 10 units. Repeat labs show anion gap improved to 11, glucose 325 Given significant hyperglycemia on presentation, will continue with insulin drip until glucose has stabilized IVF Serial [facility] Glycemic pharmacy consult Patient follows with [facility] and outpatient elementary school director is Minal Chaparro who has been notified of admission. (3) Chest pain: Plan: Patient describes an episode of atypical chest pain Initial trop negative, EKG shows possible t-wave inversions in the inferior leads however poor baseline Continue to trend trop, resting echo (4) JESSA (acute kidney injury): (5) CKD stage G3b/A2, GFR 30-44 and albumin creatinine ratio 30-299 mg/g: Plan: Baseline creat low-mid 1s, up to 1.7 today Likely due to dehydration from persistent hyperglycemia IVF Hold chlorthalidone, losartan, spironolactone Follow renal functions (6) Hypertension: Plan: BP controlled, continue metoprolol Holding chlorthalidone, losartan, spironolactone as above (7) Hypothyroidism: Plan: Continue levothyroxine (8) Seizure disorder: Plan: Stable, continue Lamictal DVT PROPHYLAXIS SQ Heparin Patient seen in collaboration with Dr. Humphrey. I spent a total of 75 minutes coordinating, documenting, and providing care for this patient excluding time spent in the performance of separately billed services. This included personally reviewing all current laboratories and imaging studies, medication reconciliation, outpatient chart review, and discussion with specialists. Admission and Anticipated Discharge Date Admission Date: March 31, 2025 History of Present Illness Chief Complaint: Hyperglycemia Primary Care Provider: Sohail Young MD 59-year-old female with PMH DM type I, HTN, CKD stage III, seizure disorder, HLD, hypothyroidism, and other problems listed below who presents to the ED for evaluation of hyperglycemia. Patient reports experiencing hypoglycemia a few months ago and reports that she has been hesitant with taking insulin as prescribed to prevent further hypoglycemic episodes. Patient also started Ozempic a couple of months ago and feels as though her blood sugars have been very labile since then. Patient self reduced her Lantus from 45 units in the morning to 30 units in the morning a couple of weeks ago. Since that time, her glucose monitor has been reading high. Patient saw her outpatient remelt furnace expediter 4 days ago who suggested increasing Lantus to 35 units daily they made adjustments in NovoLog dosing. Patient reports having nausea and vomiting this morning. Denies abdominal pain. Reports developing a midsternal chest pain last evening with radiation into the left arm. Reports pain was persistent through this morning, however has now resolved. Patient denies of shortness of breath, palpitations. No lightheadedness, dizziness, diaphoresis, syncopal events. Denies any other recent illnesses, fevers, chills. No urinary symptoms. In the ED, patient was found to be in mild/early DKA with labs showing glucose 596, anion gap 14, pH of 7.35. Patient was given IVF and IV insulin 10 units. Allergies Allergy/AdvReac Type Severity Reaction Status Date / Time No Known Allergies Allergy Verified 02/07/25 15:13 Home Medications Medication Instructions Recorded Confirmed Type cholecalciferol (vitamin D3) 25 2,000 units PO QAM 08/12/19 03/31/25 History mcg (1,000 unit) capsule (Vitamin D3) pen needle, diabetic 31 gauge x #600 ea 10/12/21 02/07/25 Rx 1/4" (Lite Touch Insulin Pen [place]) famotidine 20 mg tablet 20 mg PO BID 06/25/23 03/31/25 History losartan 100 mg tablet 100 mg PO QAM #90 tabs 06/30/24 03/31/25 Rx FreeStyle Diony 2 Sensor (flash #2 ea 07/23/24 02/07/25 Rx glucose sensor) blood-glucose sensor (FreeStyle #2 ea 08/11/24 02/07/25 Rx Diony 3 Sensor device) chlorthalidone 25 mg tablet 25 mg PO DAILY #90 tabs 09/09/24 03/31/25 Rx lamotrigine 200 mg tablet 200 mg PO BID 90 days #180 tabs 10/12/24 03/31/25 Rx simvastatin 20 mg tablet 20 mg PO QPM #90 tabs 11/26/24 03/31/25 Rx insulin aspart U-100 100 unit/mL 1 sliding scale dose subcut 11/28/24 03/31/25 History (3 mL) subcutaneous pen (Novolog USEASDIRECTD FlexPen U-100 Insulin aspart) insulin glargine 100 unit/mL (3 35 unit subcut QAM 11/28/24 03/31/25 History mL) subcutaneous pen (Lantus Solostar U-100 Insulin) levothyroxine 137 mcg tablet 137 mcg PO DAILY 11/28/24 03/31/25 History metoprolol tartrate 25 mg tablet 12.5 mg PO BID 11/28/24 03/31/25 History spironolactone 50 mg tablet 100 mg (2 x 50 mg) PO DAILY #60 12/20/24 03/31/25 Rx (Aldactone) tabs blood sugar diagnostic (OneTouch #400 ea 03/11/25 Rx Verio test strips) empagliflozin 25 mg tablet 25 mg PO DAILY #30 tabs 03/14/25 03/31/25 Rx (Jardiance) semaglutide 1 mg/dose (4 mg/3 mL) 1 mg (0.75 mL) subcut .once a week 03/24/25 03/31/25 Rx subcutaneous pen injector (Ozempic) #3 mL omeprazole 20 mg capsule,delayed 20 mg PO DAILY 03/31/25 03/31/25 History release Past Med/Surg History Problem List (Updated 03/31/25 @ 14:37 by Janeth Coates MD) Hyperglycemia (Acute) DKA (diabetic ketoacidosis) (Acute) Chest pain JESSA (acute kidney injury) DM type 1 (diabetes mellitus, type 1) DKA (diabetic ketoacidosis) Albuminuria Chronic kidney disease Controlled type 1 diabetes mellitus, with long-term current use of insulin Obesity Cerebral vascular malformation Tremor Seizure disorder Hanane's thyroiditis Dyslipidemia Vitamin D deficiency Hypothyroidism Hypertension Depression Anxiety Medical History (Updated 03/31/25 @ 14:37 by Janeth Coates MD) CKD stage G3b/A2, GFR 30-44 and albumin creatinine ratio 30-299 mg/g Uncontrolled type 1 diabetes mellitus, with long-term current use of insulin Arthritis Kidney stones Seizure ON MEDS NONE FOR 10+ YRS F/U DR LARIOS Sleep apnea NO DEVICE Surgical History Hx of right cataract extraction History of colonoscopy History of arthroscopy RIGHT KNEE History of hysterectomy TOTAL History of cystoscopy WITH STENT Social History Smoking Status: Former smoker Tobacco Type: Cigarettes Cigarettes Per Day: 20; Smoking End Date: 12 years ago.; Second Hand Exposure: No; Do You Dip or Chew Tobacco: No; Hx Alcohol Use: Yes Alcohol type: beer and wine Hx Substance Use: No Preferred Language: Venezuelan Communication Ability: Effective Visual Impairment: No Limitations Hearing Ability: Normal Transitional Kindergarten Teacher Required: No Beliefs That Will Affect Care: None marital status: Current Living Situation: Spouse current occupational status: employed current occupation: Works at [employer] in Housekeeping How many Children do You have: 2 Other Information That Helps Us Care for You: No Feels Safe at Home: Yes Safety Concerns: Feels Safe At This Time Diet: regular caffeine: Yes (2-3 coffees daily) Seatbelt Use: always Do you think of yourself as: straight/heterosexual Gender Identity: Female Assistive Devices: Denture - Upper Review of Systems Review of Systems: ROS per HPI, all other systems reviewed and negative Physical Exam Constitutional: WD/WN, vitals as above no acute distress Respiratory: normal respiratory effort, lungs clear to auscultation Cardiovascular: Rate/Rhythm: regular rate and regular rhythm Vessels: normal peripheral pulses Extremities: no edema Gastrointestinal (Abdomen): normal bowel sounds, soft, nontender, no hepatosplenomegaly Skin: no rashes, warm and dry Neurologic: no focal motor deficits Psychiatric: A+Ox3, euthymic affect Results & Data Results & Data Vital Signs (Past 12 Hours) Vital Signs Temp Pulse Resp BP Pulse Ox O2 Del Method 03/31/25 08:15 97 H 03/31/25 08:14 103/54 L 03/31/25 08:14 103/54 L 03/31/25 08:03 95 H 12 03/31/25 07:54 98 H 13 03/31/25 07:45 99 H 03/31/25 07:21 98 H 21 03/31/25 07:18 101 H 19 03/31/25 07:00 99 H 19 100 03/31/25 07:00 116/63 03/31/25 07:00 116/63 03/31/25 06:51 100 H 15 99 03/31/25 06:48 101 H 17 100 03/31/25 06:43 101 H 03/31/25 06:29 37.1 C 99 H 17 125/74 100 Room Air Laboratory Results Short CBC 03/31/25 Range/Units 06:45 WBC 8.70 (4.8-10.8) K/ul Hgb 12.9 (12.0-16.0) g/dl Hct 39.2 (37.0-47.0) % Plt Count 309 (130-400) K/uL BMP 03/31/25 03/31/25 06:40 09:20 Sodium 132 L 137 Potassium 5.6 H 4.0 D Chloride 95 L 105 Carbon Dioxide 23 21 BUN 42 H 39 H Creatinine 1.77 H 1.73 H Glucose 596 H* 325 H* Calcium 9.7 8.8 Liver Function 03/31/25 Range/Units 06:40 Total Bilirubin 0.7 (0.2-1.0) mg/dl Direct Bilirubin 0.1 (0-0.2) mg/dl AST 20 (13-39) U/L ALT 16 (7-52) U/L Alkaline Phosphatase 133 H (34-104) U/L Albumin 4.1 (3.4-5.0) gm/dl Urine 03/31/25 Range/Units 06:40 Urine Color Yellow Urine Appearance Clear (Clear) Urine pH 6.5 (4.5-7.5) Ur Specific [place] 1.026 (1.000-1.030) Urine Protein Negative (Negative) Urine Glucose (UA) 3+ H (Negative) Code Status & VTE Plan VTE Prophylaxis Plan VTE Prophylaxis will be ordered: Yes Supervising Physician Co-Signing Physician Notes Patient seen and examined at bedside. Patient doing ok today. Had recent insulin dose reduction of lantus, and her sugars having been running low and high. Has not been around sick contacts, no cough, SOB, headache, nausea, vomiting, other associated symptoms. On exam, patient has dry mucous membranes, otherwise unremarkable, sitting in room comfortably. Patient presenting with DKA as evidenced by elevated AG, slight metabolic acidosis on ABG. Placed on insulin drip, DKA protocol followed, gap closed x2 for AG, transitioned to subq insulin, patient tolerating well. DKA likely caused in insulin dependence due to recent changes in insulin dosing presenting with significant hyperglycemia, UA unremarkable. -check chest xray to finish infectious workup for DKA -elementary school director, pharmacy consult for adjustment of insulin medications, consults placed -will continue maintenance fluids until morning -possible discharge tomorrow pending sugars and overnight improvement I have seen and discussed the case with the collaborating advanced practitioner. I agree with the above H&P. I have reviewed and confirmed the patients medical history, the findings on physical examination, and the patients diagnosis and treatment plan with Sissy REEVES and agree with the information documented. I spent a total of 30 minutes coordinating, documenting, and providing care for this patient excluding time spent in the performance of separately billed services. All of the aforementioned completed outside of collaborating with the assigned advanced practitioner for a full treatment plan. I have reviewed the advanced practitioner's documentation, and I agree with, and take responsibility for the plan of care
[2025-03-31] MEDS: SODIUM CHLOR 0.45% + 20MEQ KCL 20 MEQ/1,000 ML BAG IV SCH (12:38)
[2025-03-31] MEDS: INSULIN ASPART PER UNIT CHARGE SC SCH ×3 (12:51→23:25)
[2025-03-31] MEDS ORDERED: GLUCOSE 40% GEL 15 GM TUBE PO PRN (13:45)
[2025-03-31] MEDS ORDERED: GLUCOSE 10 TAB/TUBE PO PRN (13:45)
[2025-03-31] MEDS ORDERED: GLUCAGON FOR INJ 1 MG VIAL SQ PRN (13:45)
[2025-03-31] MEDS ORDERED: DEXTROSE 50% 50 ML SYRINGE IV PRN (13:45)
[2025-03-31] MEDS ORDERED: CARBOHYDRATES FOR HYPOGLYCEMIA PO PRN (13:45)
[2025-03-31] MEDS: HEPARIN SOD 5,000 UNIT/0.5 ML VIAL SQ SCH (13:55)
[2025-03-31 14:45] LABS: Anion Gap 7.0 (3-11); Blood Urea Nitrogen 34.0 mg/dl (6-23); Calcium 8.9 mg/dl (8.6-10.3); Carbon Dioxide 26.0 mmol/L (21-32); Chloride 107.0 mmol/L (98-107); Creatinine Clr Calc Pharmacy 52.1 ml/min; Glucose 100.0 mg/dl (70-99(Fasting)); Magnesium 2.5 mg/dl (1.7-2.4); Potassium 4.3 mmol/L (3.5-5.1); Sodium 140.0 mmol/L (136-145)
--- NOTE | 2025-03-31 15:11 | Pharmacy Report ---
Pharmacy Glycemic Short Note 2 - Date of Service March 31, 2025 - Glycemic Short BSG Results (Last 24 hours): 03/31/25 03/31/25 03/31/25 06:40 06:47 06:49 Glucose 596 H* POC Glucose 551 H* 516 H* POC Glucose (other) 03/31/25 03/31/25 03/31/25 06:53 08:55 09:20 Glucose 325 H* POC Glucose 424 H* POC Glucose (other) 553 H* 03/31/25 03/31/25 03/31/25 10:33 11:51 13:08 Glucose POC Glucose 298 H 222 H 111 H POC Glucose (other) 03/31/25 03/31/25 03/31/25 13:37 13:54 14:11 Glucose 100 H POC Glucose 101 H 103 H POC Glucose (other) OUTPATIENT ANTIDIABETIC REGIMEN: * Lantus 35 units SQ QAM * NovoLog CF 35 (not working) 45 (working) CR 10 * HbA1c 7.8% (11/22/24) ASSESSMENT: * Paris is a 59 year old female admitted with mild DKA and a history of T2DM. Pharmacy has been consulted to assist with glycemic management while inpatient. * BSG upon admission 596. Patient reports taking 35 units of Lantus this morning. Came in due to nausea and glucometer reading high. AG slightly elevated at 14. Decision was made to give IV insulin bolus and transition BSGs down with insulin drip. BSGs trending down nicely by this afternoon. No ad ditional Lantus at this time. * Discussed patient with FILI Fontaine and Sissy Neri, PAC. Minal reports at their last visit Paris "is really afraid of hypoglycemia. Usually she uses Novolog after she eats. We discussed many times that that could cause hypoglycemia, but she is just too afraid to inject even a partial dose." * AG normalized x2 and BSGs within goal this afternoon. Ok to transition from insulin drip per Sissy Neri and start diet. Will initiate NovoLog at looser parameters than at home and with loose goal range. Overnight checks for patient comfort and to prevent hypo/hyperglycemia. PLAN FOR INPATIENT GLYCEMIC CONTROL: * Hold outpatient oral diabetes medications * Basal insulin * Lantus 35 units SQ daily * Bolus insulin * NovoLog per scale ACHS or Q6hrs while NPO * Goal Range: Low 110 mg/dL - High 140 mg/dL * Correction Factor: 35 mg/dL/unit * Nutritional / Prandial insulin per carb ratio of 1 unit per 12 grams CHO consumed
[2025-03-31] MEDS: SODIUM CHLORIDE 0.9% 1,000 ML IV SCH (18:27)
--- NOTE | 2025-03-31 20:47 | XRay Report ---
Single frontal view of the chest No comparison Findings: Small right pneumothorax with pleural-based calcifications may represent the sequelae of prior pleurodesis. Left lung is clear. Heart size and pulmonary vascularity within normal limits. Findings discussed with at 20:35 on 03/31/25 Electronically signed by Evaristo Gonzalez 03-31-2025 8:46 PM
[2025-03-31] MEDS: lamoTRIgine 100 MG TAB PO SCH (21:23)
[2025-03-31] MEDS: METOPROLOL TARTRATE 25 MG TAB PO SCH (21:23)
[2025-03-31] MEDS: SIMVASTATIN 20 MG TAB PO SCH (21:24)
[2025-03-31] MEDS: FAMOTIDINE 20 MG TAB PO SCH (21:26)
[2025-03-31 23:08] VITALS: O2SAT 98
--- NOTE | 2025-04-01 05:09 | Electrocardiogram Report ---
Test Reason : Blood Pressure : */* mmHG Vent. Rate : 105 BPM Atrial Rate : 105 BPM P-R Int : 178 ms QRS Dur : 86 ms QT Int : 362 ms P-R-T Axes : -27 -3 -9 degrees QTcB Int : 479 ms Poor data quality, interpretation may be adversely affected Sinus tachycardia Otherwise normal ECG When compared with ECG of 29-Feb-2020 09:45, T wave inversion now evident in Inferior leads Confirmed by Kb Valentine ([id number]) on 04/01/2025 5:09:12 AM Referred By: Confirmed By: Kb Valentine
[2025-04-01] MEDS: LEVOTHYROXINE SODIUM 137 MCG TABLET PO SCH (05:39)
[2025-04-01 07:50] VITALS: RESP 20
--- NOTE | 2025-04-01 07:56 | Pulmonary Consultation ---
Date of Consultation April 01, 2025 Assessment & Plan (1) Abnormal chest CT: (2) Chest pain: (3) Pleural calcification: (4) Obesity: (5) Sleep apnea: Plan CT chest 04/01/2025 personally reviewed: Pleural calcification appreciated on the right side with volume loss of the right lung Anterior mediastinal mass No significant mediastinal lymphadenopathy -- Abnormal chest imaging Patient seems to have pleural calcification on the right side Interestingly she denies any surgical intervention that she can remember. I would expect changes like this in the chemical pleurodesis or talc pleurodesis. She does not have memory of having that done in the past. Denies any history of surgery done in the past especially on the right side. 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 Recommend outpatient follow-up with CT surgery --Remote history of smoking Only 7 pack years -- History of sleep apnea Plan: Chest x-ray from yesterday as well as today on personal review shows pleural calcification on the right side with volume loss on the right side, no clear pneumothorax appreciated Also no significant change compared to previous chest x-ray which was done back in 2019 in [address] chest without contrast Recommend 2D echo Case was discussed with RN as well as primary team I spent more than 75 minutes looking in the chart, images, discussing the plan of care with the patient, RN as well as primary team Please note the above document was generated using voice recognition software. It may contain grammatical, syntax or spelling errors.Any formal questions or concerns about the content, text or information contained within the body of this dictation should be directly addressed to the provider for clarification. History of Present Illness Attending Physician: Jacoby Ray MD History of Present Illness 59-year-old female admitted to the hospital for chest discomfort and high sugar level Past medical history: Hypothyroidism, CKD, dyslipidemia, seizure disorder, diabetes type 1 Pulmonary consulted as the initial chest x-ray read as pneumothorax At the time of examination patient was not in any respiratory distress She says she is feeling much better compared to when she came to the hospital She was complaining of some retrosternal chest pain radiating to the left side when she came to the hospital but that is since resolved Denies any reflux-like symptoms. Better when it comes to her breathing denies any issues She is able to do her day-to-day activities without any issues Periodic cough with clear phlegm. Denies any hemoptysis. Denies any history of surgery done in the past especially on the right side. I asked on multiple location whether she had pleurodesis or a chest tube placement on the right side and she denied The only thing she recalls is that she had bad lung infection when she was a teenager Denies any exposure to asbestos Social history: Only 7-pack-year smoking history, quit a long time ago. No exposure to any chemicals or fumes at work. Patient's father used to work in coal mines Has a dog at home Denies any allergies No personal or family history of asthma No history of lung cancer in the family Allergies Allergy/AdvReac Type Severity Reaction Status Date / Time No Known Allergies Allergy Verified 02/07/25 15:13 Home Medications Medication Instructions Recorded Confirmed Type cholecalciferol (vitamin D3) 25 2,000 units PO QAM 08/12/19 03/31/25 History mcg (1,000 unit) capsule (Vitamin D3) pen needle, diabetic 31 gauge x #600 ea 10/12/21 02/07/25 Rx 1/4" (Lite Touch Insulin Pen [place]) famotidine 20 mg tablet 20 mg PO BID 06/25/23 03/31/25 History losartan 100 mg tablet 100 mg PO QAM #90 tabs 06/30/24 03/31/25 Rx FreeStyle Diony 2 Sensor (flash #2 ea 07/23/24 02/07/25 Rx glucose sensor) blood-glucose sensor (FreeStyle #2 ea 08/11/24 02/07/25 Rx Diony 3 Sensor device) chlorthalidone 25 mg tablet 25 mg PO DAILY #90 tabs 09/09/24 03/31/25 Rx lamotrigine 200 mg tablet 200 mg PO BID 90 days #180 tabs 10/12/24 03/31/25 Rx simvastatin 20 mg tablet 20 mg PO QPM #90 tabs 11/26/24 03/31/25 Rx insulin aspart U-100 100 unit/mL 1 sliding scale dose subcut 11/28/24 03/31/25 History (3 mL) subcutaneous pen (Novolog USEASDIRECTD FlexPen U-100 Insulin aspart) insulin glargine 100 unit/mL (3 35 unit subcut QAM 11/28/24 03/31/25 History mL) subcutaneous pen (Lantus Solostar U-100 Insulin) levothyroxine 137 mcg tablet 137 mcg PO DAILY 11/28/24 03/31/25 History metoprolol tartrate 25 mg tablet 12.5 mg PO BID 11/28/24 03/31/25 History spironolactone 50 mg tablet 100 mg (2 x 50 mg) PO DAILY #60 12/20/24 03/31/25 Rx (Aldactone) tabs blood sugar diagnostic (OneTouch #400 ea 03/11/25 Rx Verio test strips) empagliflozin 25 mg tablet 25 mg PO DAILY #30 tabs 03/14/25 03/31/25 Rx (Jardiance) semaglutide 1 mg/dose (4 mg/3 mL) 1 mg (0.75 mL) subcut .once a week 03/24/25 03/31/25 Rx subcutaneous pen injector (Ozempic) #3 mL omeprazole 20 mg capsule,delayed 20 mg PO DAILY 03/31/25 03/31/25 History release Patient History Medical History CKD stage G3b/A2, GFR 30-44 and albumin creatinine ratio 30-299 mg/g Uncontrolled type 1 diabetes mellitus, with long-term current use of insulin Arthritis Kidney stones Seizure Sleep apnea Surgical History Hx of right cataract extraction History of colonoscopy History of arthroscopy History of hysterectomy History of cystoscopy Social History Smoking Status: Former smoker Tobacco Type: Cigarettes Cigarettes Per Day: 20; Second Hand Exposure: No; Do You Dip or Chew Tobacco: No; Hx Alcohol Use: Yes Alcohol type: beer and wine Hx Substance Use: No Preferred Language: Dutch Communication Ability: Effective Visual Impairment: No Limitations Hearing Ability: Normal Fire Dispatcher Required: No Beliefs That Will Affect Care: None marital status: Current Living Situation: Spouse current occupational status: employed 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 many Children do You have: 2 Feels Safe at Home: Yes Diet: regular caffeine: Yes (2-3 coffees daily) Seatbelt Use: always Do you think of yourself as: straight/heterosexual Gender Identity: Female Assistive Devices: Denture - Upper Review of Systems 2 Review of Systems: All systems reviewed & are unremarkable except as noted in HPI & below Physical Exam 2 Physical Exam: Constitutional: No acute distress HEENT: EOMI, PERRLA Respiratory system: Decreased air entry on the right side, no wheeze, no rhonchi, mild crackles bilateral lower lobe CVS: S1-S2 positive, no murmurs or gallops Abdomen: Soft, nontender, nondistended, positive bowel sounds x4, obese Extremities: +2 pulses bilaterally radialis/ dorsalis pedis, no cyanosis, minimal pitting edema bilateral lower extremity Neuro: Awake alert oriented x3 Psych: Normal mood and affect G/U: No Chapman Skin: no rashes, warm and dry Lymphatic: no cervical or axillary lymphadenopathy Results & Data Results & Data Vital Signs (Past 12 Hours) Vital Signs Temp Pulse Pulse Resp BP Pulse Ox O2 Del Method 04/01/25 07:49 36.6 C 77 20 131/76 98 Room Air 04/01/25 03:38 36.9 C 79 18 132/73 98 Room Air 03/31/25 22:54 36.5 C 76 18 122/77 98 Room Air 03/31/25 21:46 83 Laboratory Results 04/01/25 09:56 04/01/25 09:56 PG Care Time/CCT Total # of Minutes Spent Total Time Spent with Patient: Total time spent is greater than 50% in coordination of care (as documented) at patient's floor/unit and/or counseling patient: Coding Level of Care Code 39261 INT INP/OBS CARE 3/75MIN Diagnoses Abnormal chest CT R93.89 Chest pain R07.9 Pleural calcification J94.8 Obesity E66.9 Sleep apnea G47.30
--- NOTE | 2025-04-01 07:57 | XRay Report ---
EXAM: XR chest 1V portable CLINICAL HISTORY: Pneumothorax TECHNIQUE: An X-ray image of the chest is obtained in PA projection. COMPARISON: XR chest 03/31/2025. FINDINGS: Pulmonary Parenchyma: Possible mild right apical pneumothorax. unchanged. Stationary right pleural-based calcifications with peripheral ill-defined opacities and blunting of the right costophrenic angle, possibly by mild pleural effusion or thickening. Clear left lung. Heart and Mediastinum: Heart size and shape are normal. No mediastinal widening or masses. No hilar or mediastinal lymphadenopathy. Bony Thorax: Bony thorax appears intact without fractures or deformities. Soft Tissues: Soft tissues overlying the chest wall are unremarkable. IMPRESSION: 1. Possible mild right apical pneumothorax. unchanged. 2. Stationary right pleural-based calcifications with peripheral ill-defined opacities and blunting of the right costophrenic angle, possibly by mild pleural effusion or thickening. 3. No new acute cardiopulmonary abnormalities are identified. Electronically signed by Maximus Vu 04-01-2025 07:57 AM
[2025-04-01] MEDS: LANTUS PER UNIT CHARGE SC SCH (08:28)
--- NOTE | 2025-04-01 09:47 | CT Scan Report ---
CT SCAN OF THE CHEST WITHOUT IV CONTRAST CLINICAL HISTORY: Abnormal chest x-ray. COMPARISON STUDY: Chest x-ray dated 04/01/2025. Abdominal CT dated 06/13/2017 TECHNIQUE: CT scan of the thorax was performed from the thoracic inlet to the upper abdomen. Images are reviewed in the axial, sagittal, and coronal planes. IV contrast was not administered for this ex amination as per the referring clinician. A dose lowering technique was utilized adhering to the mauri addison of MAGGIE. The examination is modestly degraded by motion artifact. CT DOSE: 546.17 mGy.cm FINDINGS: Thyroid: Atrophic. Thoracic aorta: There is mild atherosclerotic calcification of the thoracic aorta, which is normal in caliber and demonstrates variant 3-vessel arch anatomy. There is a bovine arch, and the left vertebr al artery arises directly from the thoracic aorta. Heart: The heart is mildly enlarged and without pericardial effusion. Lungs and pleural spaces: There is significant calcified right-sided pleural thickening with correspo nding volume loss in the right lung and compensatory hyperinflation of the left lung. This was also s een on the [address] Foci of parenchymal scarring are noted throughout the right lung. The l eft lung is clear. There is no airspace consolidation typical for pneumonia or pleural effusion. The trachea and central airways are patent. There is no pneumothorax. Mediastinum: There is an approximately 4 x 3 cm indeterminate structure within the right anterior med iastinum seen on image #105 which closely approximates the right atrium. No lymphadenopathy is seen. Tg: Not well assessed without IV contrast. Axillae: There is no axillary lymphadenopathy. Upper abdomen: A small hiatal hernia is noted. There is asymmetrical cortical atrophy of the partiall y imaged right kidney as compared to the left which is unchanged from 2017. Skeletal structures: No lytic or blastic bony lesions are seen. Degenerative change is noted at the l eft sternoclavicular joint. IMPRESSION: 1. There is no airspace consolidation, pleural effusion, or pneumothorax. 2. Chronic calcified right-sided pleural thickening and volume loss in the right lung is unchanged fr om a [address] 3. The heart is mildly enlarged. 4. There is a lobular 4 x 3 cm structure in the right anterior mediastinum which closely approximates the right atrium. This is pathologically indeterminate and may represent a prominent right atrial ap pendage. A cardiac aneurysm or less likely mediastinal mass is not excluded and a contrast enhanced C T scan of the chest is recommended for further assessment. 5. Additional findings as above. ACT 112: Negative or not required by law. Electronically signed by: Toby Byrd M.D. 04/01/2025 9:45 AM
[2025-04-01 11:12] LABS: Hematocrit (blood only) 36.8 % (37.0-47.0); Hemoglobin 12.0 g/dl (12.0-16.0); Mean Corpuscular Hemoglobin 29.7 pg (25.0-34.0); Mean Corpuscular Volume 91.1 fL (80.0-100.0); Platelet Count 233 K/uL (130-400); RDW Standard Deviation 41.8 fL (36.4-46.3); Red Blood Count 4.04 M/uL (4.20-5.40); White Blood Count 5.36 K/ul (4.8-10.8)
[2025-04-01 11:20] VITALS: BP 121/82; PULSE 68; TEMP 98.1
[2025-04-01 11:31] LABS: Anion Gap 9.0 (3-11); Blood Urea Nitrogen 25.0 mg/dl (6-23); Calcium 9.2 mg/dl (8.6-10.3); Carbon Dioxide 22.0 mmol/L (21-32); Chloride 103.0 mmol/L (98-107); Creatinine Clr Calc Pharmacy 50.6 ml/min; Glucose 217.0 mg/dl (70-99(Fasting)); Magnesium 2.3 mg/dl (1.7-2.4); Potassium 4.7 mmol/L (3.5-5.1); Sodium 134.0 mmol/L (136-145)
--- NOTE | 2025-04-01 13:55 | Discharge Summary ---
Date of Service April 01, 2025 Admission HPI Per Admitting Provider 59-year-old female with PMH DM type I, HTN, CKD stage III, seizure disorder, HLD, hypothyroidism, and other problems listed below who presents to the ED for evaluation of hyperglycemia. Patient reports experiencing hypoglycemia a few months ago and reports that she has been hesitant with taking insulin as prescribed to prevent further hypoglycemic episodes. Patient also started Ozempic a couple of months ago and feels as though her blood sugars have been very labile since then. Patient self reduced her Lantus from 45 units in the morning to 30 units in the morning a couple of weeks ago. Since that time, her glucose monitor has been reading high. Patient saw her outpatient nurse educator 4 days ago who suggested increasing Lantus to 35 units daily they made adjustments in NovoLog dosing. Patient reports having nausea and vomiting this morning. Denies abdominal pain. Reports developing a midsternal chest pain last evening with radiation into the left arm. Reports pain was persistent through this morning, however has now resolved. Patient denies of shortness of breath, palpitations. No lightheadedness, dizziness, diaphoresis, syncopal events. Denies any other recent illnesses, fevers, chills. No urinary symptoms. In the ED, patient was found to be in mild/early DKA with labs showing glucose 596, anion gap 14, pH of 7.35. Patient was given IVF and IV insulin 10 units. Admission Exam Per Admitting Provider Constitutional: WD/WN, vitals as above no acute distress Respiratory: normal respiratory effort, lungs clear to auscultation Cardiovascular: Rate/Rhythm: regular rate and regular rhythm Vessels: normal peripheral pulses Extremities: no edema Gastrointestinal (Abdomen): normal bowel sounds, soft, nontender, no hepatosplenomegaly Skin: no rashes, warm and dry Neurologic: no focal motor deficits Psychiatric: A+Ox3, euthymic affect Principal Diagnosis Hyperglycemia, mild/early DKA Abnormal CT chest Discharge Exam Constitutional: WD/WN, vitals as above no acute distress Respiratory: normal respiratory effort, lungs clear to auscultation Cardiovascular: Rate/Rhythm: regular rate and regular rhythm Vessels: normal peripheral pulses Extremities: no edema Gastrointestinal (Abdomen): normal bowel sounds, soft, nontender Skin: no rashes, warm and dry Neurologic: no focal motor deficits Psychiatric: A+Ox3, euthymic affect Discharge Data Allergies Allergy/AdvReac Type Severity Reaction Status Date / Time No Known Allergies Allergy Verified 02/07/25 15:13 Consultations 03/31/25 09:00 ED Decision to Admit Stat 04/01/25 08:00 Consult Pulmonology Routine Ordered Studies 04/01/25 07:54 CT chest diagnostic wo con Urgent FINDINGS: Thyroid: Atrophic. Thoracic aorta: There is mild atherosclerotic calcification of the thoracic aorta, which is normal in caliber and demonstrates variant 3-vessel arch anatomy. There is a bovine arch, and the left vertebral artery arises directly from the thoracic aorta. Heart: The heart is mildly enlarged and without pericardial effusion. Lungs and pleural spaces: There is significant calcified right-sided pleural thickening with corresponding volume loss in the right lung and compensatory hyperinflation of the left lung. This was also seen on the [address] Foci of parenchymal scarring are noted throughout the right lung. The left lung is clear. There is no airspace consolidation typical for pneumonia or pleural effusion. The trachea and central airways are patent. There is no pneumothorax. Mediastinum: There is an approximately 4 x 3 cm indeterminate structure within the right anterior mediastinum seen on image #105 which closely approximates the right atrium. No lymphadenopathy is seen. Tg: Not well assessed without IV contrast. Axillae: There is no axillary lymphadenopathy. Upper abdomen: A small hiatal hernia is noted. There is asymmetrical cortical atrophy of the partially imaged right kidney as compared to the left which is unchanged from 2017. Skeletal structures: No lytic or blastic bony lesions are seen. Degenerative change is noted at the left sternoclavicular joint. IMPRESSION: 1. There is no airspace consolidation, pleural effusion, or pneumothorax. 2. Chronic calcified right-sided pleural thickening and volume loss in the right lung is unchanged from a [address] 3. The heart is mildly enlarged. 4. There is a lobular 4 x 3 cm structure in the right anterior mediastinum which closely approximates the right atrium. This is pathologically indeterminate and may represent a prominent right atrial appendage. A cardiac aneurysm or less likely mediastinal mass is not excluded and a contrast enhanced CT scan of the chest is recommended for further assessment. 5. Additional findings as above. Hospital Course (1) DKA (diabetic ketoacidosis): (2) DM type 1 (diabetes mellitus, type 1): Patient presenting from home with reports of hyperglycemia. Patient reports experiencing hypoglycemia a few months ago and reports that she has been hesitant with taking insulin as prescribed to prevent further hypoglycemic episodes. Patient also started Ozempic a couple of months ago and feels as th ough her blood sugars have been very labile since then. Patient self reduced her Lantus from 45 units in the morning to 30 units in the morning a couple of weeks ago. Since that time, her glucose monitor has been reading high. Patient saw her outpatient nurse educator 4 days ago who suggested increasing Lantus to 35 units daily they made adjustments in NovoLog dosing. In the ED, patient was found to be in mild/early DKA with labs showing glucose 596, anion gap 14, pH of 7.35. Patient was given IVF and IV insulin 10 units. Repeat labs show anion gap improved to 11, glucose 325 Continued IVF Serial BMP Glycemic pharmacy consult [place] [facility] [place] nurse educator is Minal Chaparro who has been notified of admission. 04/01/2025 Pt is feeling well. Says she already contacted her nurse educator and will be meeting up with her on Friday04/04/2025. She wishes to be discharged home. (3) Chest pain: Patient describes an episode of atypical chest pain Serial troponin negative, EKG shows possible t-wave inversions in the inferior leads however poor baseline, pt was tachycardic at that time Echo obtained - LV normal in size, mild concentric LVH, LV wall motion is normal, LV is hyperdynamic, LV EF> 70%, no significant valvular disease. Aortic root is normal, doppler findings do not suggest pulm. htn Currently chest pain free Abnormal CXR/ chest CT Initially concern for possible pneumothorax - Pulmonary medicine was consulted - pt does not have pneumothorax but needs to follow up with CT surgery As per pulm. - Abnormal chest imaging Patient seems to have pleural calcification on the right side Interestingly she denies any surgical intervention that she can remember. I would expect changes like this in the chemical pleurodesis or talc pleurodesis. She does not have memory of having that done in the past. Denies any history of surgery done in the past especially on the right side. 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 to hold chlorthalidone on discharge and re-evaluate as outpt (6) Hypertension: BP controlled, continue metoprolol Holding chlorthalidone, losartan, spironolactone as above (7) Hypothyroidism: Continue levothyroxine (8) Seizure disorder: Stable, continue Lamictal Total Time Total Time Spent Total Time Spent (In Minutes): 40 Discharge Plan Discharge Items Patient Disposition: Home - Self-Care Reason For Visit: DKA Discharge Diagnosis: Hyperglycemia, mild/early DKA Abnormal CT chest Condition on Discharge: Fair Activity: Per Instructions section Non-emergency contact: Primary Care Provider and Specialist Call non-emergency contact if: you have any medication questions and your sympt oms worsen Follow-up/Referrals: Sohail Young MD [Primary Care Provider] - (Date & Time 04/05/2025 12:40 PM Provider: Irasema Davis MD [facility] ) Diet: Carb Count or DM1 and Heart Healthy Addtl Attending Provider Instructions: Follow up with your primary care doctor within 1 week. The appointment was scheduled for you for 04/05/2025. Follow up with your nurse educator/ endocrinology as planned on 04/04/2025. Make sure to stay well hydrated. For now, do not take chlorthalidone and discuss with your primary care physician if/ when you should resume it. Given abnormal findings on chest CT you will need further follow up to be arranged by your primary care doctor. Pending Studies at Discharge: No Stand-Alone Forms: My [employer], Work/School Release, Smoking Cessation Medications and DC Order Prescriptions: Continued cholecalciferol (vitamin D3) [Vitamin D3] 25 mcg (1,000 unit) capsule 2,000 units PO QAM (DME) pen needle, diabetic [Lite Touch Insulin Pen Canjilon] 31 gauge x 1/4" needle See Rx Instructions .Route Qty: 600 1RF Rx Instructions: use 6 needles per day with insulin losartan 100 mg tablet 100 mg PO QAM Qty: 90 3RF (DME) FreeStyle Diony 2 Sensor Kit See Rx Instructions .ROUTE .MEDSUPPLY Qty: 2 12RF Rx Instructions: Change sensor every 14 days (DME) FreeStyle Diony 3 Sensor Device See Rx Instructions .Route Qty: 2 11RF Rx Instructions: change sensor Q14D lamotrigine 200 mg tablet 200 mg PO BID 90 Days Qty: 180 1RF spironolactone [Aldactone] 50 mg tablet 100 mg PO DAILY Qty: 60 5RF (DME) OneTouch Verio test strips Strip See Rx Instructions .ROUTE .MEDSUPPLY Qty: 400 3RF Rx Instructions: use to test blood sugar QID when CGM has failed Jardiance 25 mg tablet 25 mg PO DAILY Qty: 30 5RF Rx Instructions: Take one tablet daily Ozempic 1 mg/dose (4 mg/3 mL) pen injector 1 mg subcut .once a week Qty: 3 6RF famotidine 20 mg tablet 20 mg PO BID Rx Instructions: 20 mg po bid. Pt wonders if this medication is making her sick simvastatin 20 mg tablet 20 mg PO QPM Qty: 90 3RF Rx Instructions: Take 20mg tablet daily insulin aspart U-100 [Novolog FlexPen U-100 Insulin] 100 unit/mL (3 mL) Insulin Pen 1 sliding scale dose SUBCUT USEASDIRECTD Rx Instructions: per spouse/pt her units range levothyroxine 137 mcg tablet 137 mcg PO DAILY metoprolol tartrate 25 mg tablet 12.5 mg PO BID insulin glargine [Lantus Solostar U-100 Insulin] 100 unit/mL (3 mL) insulin pen 35 unit subcut QAM omeprazole 20 mg capsule,delayed release(DR/EC) 20 mg PO DAILY Held chlorthalidone 25 mg tablet 25 mg PO DAILY Qty: 90 3RF Hold Instructions: Resume on 04/04/25. discuss with your primary care doctor if/when to resume Discharge Orders: Discharge Order (Routine); Ordered 04/01/25 Ordered By: Jacoby Ray Admission Data Admit Date/Time: 03/31/25 09:08 Attending Provider: Jacoby Ray Admit Provider: Praveen Humphrey Primary Care Provider: Sohail oYung Other Providers: Praveen Humphrey; Rylan Marino
== END 2025-04-01 15:11 | disposition home or self-care (01) | DRG 638 ==
LOC: ED 06:26 → EDINP 09:08 → SUATTDRO 09:08 → 2S 16:44